=== PATIENT | female | born 1945 | race Caucasian/White ===

== ENCOUNTER 2021-01-10 00:29 | Emergency (ER) | payer OTHER, SELFPAY ==
[2021-01-10 00:30] VITALS: BP 184/126; PULSE 93; RESP 20; TEMP 35.9; O2SAT 96; BMI 34.1
--- NOTE | 2021-01-10 01:09 | EKG12_ITS ---
Test Reason : ABD PAIN Blood Pressure : / mmHG Vent. Rate : 086 BPM Atrial Rate : 086 BPM P-R Int : 138 ms QRS Dur : 086 ms QT Int : 374 ms P-R-T Axes : 065 043 117 degrees QTc Int : 447 ms Normal sinus rhythm with sinus arrhythmia Possible Left atrial enlargement Poor R- wave progression Nonspecfic T-wave abnormality Abnormal ECG Confirmed by CATHERINE VARELA, TREVOR ([id number]), magazine editor TJ THORNTON ([id number]) on 01/13/2021 1:16:35 PM Referred By: DURGA Confirmed By:TREVOR ALEXANDER MD
--- NOTE | 2021-01-10 01:09 | CT_ITS ---
STUDY: CTA OF THE ABDOMEN REASON FOR EXAM: Female, 76 years old. abd pain, HTN -- CTA abd and pelvis please RADIATION DOSAGE (If Supplied By Facility): CTDIvol = ( 32.68 ) mGy, DLP = ( 1275.97 ) mGycm TECHNIQUE: Axial CT angiography multi-detector data acquisition was obtained from the to the following intravenous administration of IV 100mL Isovue-370. Axial images and MIP images were reconstructed from the axial data set. Post-processing of the angiographic images was performed, with multiplanar reformation and 3D reconstruction. Individualized dose optimization techniques were used for this CT. TECHNICAL QUALITY: Good COMPARISON: None. Descriptors of Narrowing: None (0%) Mild (< 50%) Moderate (50-70%) Severe (70-90%) Subtotal/Total Occlusion (90-100%) Non-Evaluable (technically non-diagnostic FINDINGS: Abdominal aorta: Mild atherosclerotic disease of aorta with tortuosity. No stenosis or aneurysm. Celiac and superior mesenteric arteries: Atherosclerotic disease involving the origin of the celiac artery with moderate to severe narrowing. No narrowing involving the superior mesenteric artery. Inferior mesenteric artery: No demonstrated narrowing. Right renal artery(arteries): Likely high-grade stenosis near the ostium Left renal artery(arteries): Atherosclerotic disease with no narrowing. Right common iliac artery: Atherosclerotic disease, no narrowing. Right external iliac artery: Atherosclerotic disease, no narrowing. Right internal iliac artery: Atherosclerotic disease, no narrowing. Left common iliac artery: Atherosclerotic disease, no narrowing. Left external iliac artery: Atherosclerotic disease, no narrowing. Left internal iliac artery: Atherosclerotic disease, no narrowing. Right common femoral artery: Atherosclerotic disease, no narrowing. Left common femoral artery: Atherosclerotic disease, no narrowing. CT of the abdomen and pelvis: Mild posterior dependent atelectasis, remainder of the lung bases are clear. Cardiomegaly. Distention of the gallbladder with the thickening of the wall and surrounding inflammation raising the concern for acute cholecystitis. There is evidence of pneumobilia. There is an elongated fluid collection in the right upper quadrant presumed to represent distended gallbladder measuring 7.4 cm. There is thickening of the wall with air in the lumen and upper aspect of the wall. If this represents gallbladder, this represents acute cholecystitis, possible emphysematous. However, on axial image 100, series 2 with there is communication between this structure and gastroduodenal region and therefore differential diagnosis includes a large diverticulum with inflammatory process. Normal spleen. Normal pancreas. Normal bilateral adrenal glands. Right mid lower renal pole cyst measuring 3.6 x 3.2 cm. Right lower renal pole indeterminant heterogeneous structure with high density measuring 1.2 cm, cannot exclude small renal mass. Otherwise normal right kidney. Normal left kidney. The stomach is distended. Described above, cannot exclude a large diverticulum at the gastroduodenal region. Distention of the small bowel loops up to a maximum diameter of 3.7 cm concerning for small bowel obstruction. Zone of transition is indeterminate and likely within the mid distal jejunum. Normal colon. There is non-visualization of the appendix. There is diffuse atherosclerotic calcification of the abdominal aorta, without a demonstrated aneurysm. Normal inferior vena cava. Normal retroperitoneum. Normal urinary bladder. There is atrophy of the uterus. There is large anterior pannus with anterior abdominal wall diastases. There are diffuse degenerative changes of the visualized lumbar spine. IMPRESSION: Acute cholecystitis versus large gastroduodenal diverticulum with inflammatory changes. Correlation with history of prior cholecystectomy. Air in the fluid collection in the right upper quadrant, cannot exclude is emphysematous cholecystitis. Small bowel obstruction with zone of transition in the mid to distal jejunum. Right lower renal pole heterogeneous density measuring 1.2 cm, cannot exclude a small renal mass. Follow-up with ultrasound in nonacute setting recommended. CT/CT ANGIO ABD&PEL W/O&W/DYE IMPRESSION: Normal abdominal aorta and bilateral lower extremity run-off without a hemodynamically significant stenosis. Electronically Signed: Cecile Fatima MD at 3:11 EDT , Service support ,
[2021-01-10] MEDS: Ondansetron 4 MG/2 ML Vial IV (01:23)
[2021-01-10] MEDS: fentaNYL 100 MCG/2 ML Ampul 25 MCG IV ×2 (01:24→02:49)
[2021-01-10 01:25] LABS: Absolute Lymphocyte Count 1.09 X10^3/uL (0.83-4.51); Absolute Neutrophil Count 9.7 X10^3/uL (2.0-7.7); Basophil# 0.03 X10^3/uL; Basophil% 0.3 % (0-1); Eosinophil# 0.02 X10^3/uL; Eosinophils% 0.2 % (0-5); Hematocrit 47.9 % (37-47); Lymphocyte # 1.09 X10^3/ul (0.83-4.51); Lymphocyte % 9.4 % (19-41); Mean Corp Hgb Conc 31.3 g/dL (32-36); Mean Corpuscular Hgb 26.1 pg (27.0-32.0); Mean Corpuscular Volume 83.3 fL (81-99); Mean Platelet Vol. 10.3 fl (6.2-12.0); Monocyte% 6.9 % (0-10); NRBC Flagged by Analyzer 0 % (0-5); Neutrophil # 9.65 X10^3/uL (2.7-7.7); Neutrophil % 82.9 % (47-70); Platelet Count 251 K/mm3 (150-450); RBC Distribution Width CV 14.8 % (11.6-14.6); RBC Distribution Width SD 44.9 fl (35.1-43.9); Red Blood Count 5.75 M/mm3 (4.2-5.4); White Blood Count 11.6 K/mm3 (4.4-11.0)
[2021-01-10 01:40] VITALS: BP 181/97; PULSE 82; RESP 20; O2SAT 92
[2021-01-10 01:58] LABS: AST(SGOT) 30 U/L (15-37); Alanine Aminotransfer ALT/SGPT 21 U/L (13-56); Albumin, Serum 3.6 g/dL (3.2-5.0); Alkaline Phosphatase 98 U/L (45-117); Anion Gap 7 (5-15); BUN 24 mg/dL (7-18); BUN/Creat Ratio 19.4 RATIO (10-20); Bilirubin, Direct 0.21 mg/dL (0.00-0.30); Calcium,Total 9.1 mg/dL (8.5-10.1); Chloride 99 mmol/L (98-107); Creatinine, Serum 1.24 mg/dL (0.55-1.02); EST Glomerular Filtration Rate 45 mL/min (>60); Est Glom Filt Rate - Afr Amer 54 mL/min (>60); Estimated Creatinine Clearance 37.26 ml/min; Globulin 4.2 g/dL (2.2-4.2); Glucose 198 mg/dL (74-106); Lactic Acid 1.4 mmol/L (0.4-1.9); Lipase 133 U/L (73-393); Potassium 4.7 mmol/L (3.5-5.1); Protein, Total 7.8 g/dL (6.4-8.2); Sodium Level 135 mmol/L (136-145)
[2021-01-10 02:28] VITALS: BP 169/84; PULSE 76; RESP 18; TEMP 37.3; O2SAT 94
--- NOTE | 2021-01-10 03:31 | EDS_ITS ---
HPI History of Present Illness Chief Complaint: Abd Pain Informant: patient Onset/Context/Timing Onset: Yesterday Context: Gradual Onset Timing: Waxes and wanes Current Severity: Moderate Maximum Severity: Severe Narrative Narrative: Patient presents with a 1 day history of abdominal pain. She describes it as a spasm sensation. She has had nausea and vomiting. She does report that she had a bowel movement and denies having diarrhea. She did not check for a fever but did not feel warm. Only prior abdominal surgeries are C- sections. Past medical history significant for hypertension, no longer taking medication. She also has a history of prior [place] in 2017 with 2 cardiac stents. She believes she was diagnosed with CHF. [facility] Medical History CHF (congestive heart failure) Coronary artery disease Hypertension Myocardial infarction Home Medications aspirin [Baby Aspirin] 81 mg PO DAILY 01/10/21 [History Last Taken Unknown] clopidogrel [Plavix] 75 mg PO DAILY 01/10/21 [History Last Taken Unknown] furosemide [Lasix] 40 mg PO DAILY 01/10/21 [History Last Taken Unknown] Allergy/AdvReac Type Severity Reaction Status Date / Time No Known Allergies Allergy Verified 01/10/21 00:35 Surgical History History of Social History Smoking Status: Never smoker ROS ROS ED Constitutional Constitutional ED: Denies chills or fever(s) Eyes Eyes: Denies change in vision ENT ENT ED: Denies sore throat Cardiovascular Cardiovascular: Denies chest pain Respiratory/Chest Respiratory/Chest: Denies cough or dyspnea Gastrointestinal Gastrointestinal: Reports abdominal pain, nausea and vomiting; Denies diarrhea Genitourinary Genitourinary ED: Denies dysuria Musculoskeletal Musculoskeletal: Reports back pain Integumentary Denies rash Neurologic Neurologic: Denies headache(s) or weakness Psychiatric Psychiatric: Denies anxiety or depression Endocrine Endocrinology: Denies polydipsia or polyuria Allergic/Immunologic Allergic/Immunologic ED: Denies urticaria EXAM Physical Exam Const Vital Signs: 01/10/21 00:30 01/10/21 01:40 01/10/21 02:28 Temperature 96.6 F L 99.1 F Temperature Source Temporal Oral Pulse Rate 93 82 76 Respiratory Rate 20 H 20 H 18 Blood Pressure 184/126 H 181/97 H 169/84 H Blood Pressure Mean 145 125 112 Pulse Ox 96 92 94 Oxygen Delivery Method Room Air Room Air Room Air 01/10/21 03:42 Temperature 98.8 F Temperature Source Oral Pulse Rate 79 Respiratory Rate 17 Blood Pressure 183/93 H Blood Pressure Mean 123 Pulse Ox 95 Oxygen Delivery Method Room Air Positive well nourished and well developed General Appearance ED: well developed HEENT Reports normocephalic and head/scalp atraumatic Eyes PERRL and EOMs intact bilaterally Neck supple Chest Wall inspection of chest normal and palpation of chest normal Resp normal respiratory effort and clear to auscultation bilaterally Cardio regular rate and regular rhythm GI Auscultation: hypoactive bowel sounds Palpation: soft and tender other (Mild diffuse tenderness to palpation.); N egative for guarding or rebound tenderness present Extremity normal to inspection Neuro oriented x3 and no sensory deficits noted Sensorium / Orientation: alert Motor Exam: strength 5/5 throughout Psych mental status grossly normal Skin no rashes or lesions noted MDM MDM MDM Narrative Medical decision making narrative: Patient was given fentanyl and Zofran for pain and nausea. Lab work was obtained. CTA of the abdomen and pelvis was obtained secondary to her degree of hypertension and complaints of back and abdominal pain. Lab Data Attestation: I reviewed the patient's lab results. Labs: Laboratory Results - last 24 hr 01/10/21 01/10/21 01/10/21 01:18 01:18 01:18 WBC 11.6 H RBC 5.75 H Hgb 15.0 Hct 47.9 H MCV 83.3 MCH 26.1 L MCHC 31.3 L RDW Std Deviation 44.9 H RDW Coeff of Beena 14.8 H Plt Count 251 MPV 10.3 Immature Gran % (Auto) 0.300 Neut % (Auto) 82.9 H Lymph % (Auto) 9.4 L [place] % (Auto) 6.9 Eos % (Auto) 0.2 Baso % (Auto) 0.3 Absolute Neuts (auto) 9.7 H Absolute Lymphs (auto) 1.09 Nucleated RBC % 0 Sodium 135 L Potassium 4.7 Chloride 99 Carbon Dioxide 29.0 Anion Gap 7 BUN 24 H Creatinine 1.24 H Estim Creat Clear Calc 37.26 Est GFR (MDRD) Af Amer 54 L Est GFR (MDRD) Non-Af 45 L BUN/Creatinine Ratio 19.4 Glucose 198 H Lactic Acid 1.4 Calcium 9.1 Total Bilirubin 0.80 Direct Bilirubin 0.21 AST 30 ALT 21 Alkaline Phosphatase 98 Total Protein 7.8 Albumin 3.6 Globulin 4.2 Lipase 133 Radiography Diagnostic Testing: Radiology Impression Abdomen/Pelvis CTA 01/10/21 01:09 IMPRESSION: Normal abdominal aorta and bilateral lower extremity run-off without a hemodynamically significant stenosis. Electronically Signed: Cecile Fatima MD at 3:11 EDT , Service support , EKG Initial EKG: Attestation: I personally reviewed and interpreted this EKG as follows: Interpretation: Sinus Rhythm (Sinus 86 with sinus arrhythmia. No acute ST change.) Treatment and Re-Evaluation Comments:: Evaluation patient resting much more comfortably. She will be given a dose of Zosyn. I spoke with Dr. Garcia, on-call for surgery. She feels that if there is any chance of this being a gastroduodenal diverticulum she cannot handle that surgery here at this facility and she will require transfer to a tertiary center. We spoke with [facility] who states they were not able to accept this transfer at this time. Calls are made to [facility] for transfer. Discharge Plan Triage Chief Complaint: Abd Pain ED Provider: Taniya Toro Dx/Rx/DC Orders Clinical Impression: Cholecystitis, Small bowel obstruction Prescriptions: No Action furosemide [Lasix] 40 mg Tablet 40 mg PO DAILY RF: 0 clopidogrel [Plavix] 75 mg Tablet 75 mg PO DAILY RF: 0 aspirin [Baby Aspirin] 81 mg Tablet,Chewable 81 mg PO DAILY RF: 0 Primary Care Provider: Thomas Pastor Referrals: Thomas Pastor DO [Primary Care Provider] - Disposition Disposition: Acute Care Hospital Discharge Location: [facility] Discharge Date/Time: 01/10/21 05:10
[2021-01-10 03:42] VITALS: BP 183/93; PULSE 79; RESP 17; TEMP 37.1; O2SAT 95
[2021-01-10 04:27] VITALS: BP 179/83; PULSE 76; RESP 18; O2SAT 97
[2021-01-10] MEDS: fentaNYL 100 MCG/2 ML Ampul 50 MCG IV (04:38)
--- NOTE | 2021-01-10 04:40 | ED.RN ---
attempted to [facility] rn to rn report. no answer
--- NOTE | 2021-01-10 04:50 | ED.RN ---
attempted to call rn to rn report to [facility], no answer.
--- NOTE | 2021-01-10 04:54 | ED.RN ---
attempted to call rn to rn report to [facility]. answer with failure to transfer. no report given
--- NOTE | 2021-01-10 04:56 | ED.RN ---
attempted to call rn to rn report to [facility]. put on hold, failure to transfer. no report given.
== END 2021-01-10 05:10 | disposition short-term general hospital (02) ==
PROVIDERS: Emergency Provider Emergency Medicine; PCP Family Medicine
DX: K81.9 Cholecystitis, unspecified (principal); K56.609 Unspecified intestinal obstruction, unspecified as to partial versus complete obstruction; I25.10 Atherosclerotic heart disease of native coronary artery without angina pectoris; I11.0 Hypertensive heart disease with heart failure; I50.9 Heart failure, unspecified; I25.2 Old myocardial infarction; Z79.82 Long term (current) use of aspirin; Z95.5 Presence of coronary angioplasty implant and graft; Z79.899 Other long term (current) drug therapy
CPT/HCPCS: 74174; 80048; 80076; 83605; 83690; 85025; 93005; 96365; 96375; 96376; 99285; J7040; Q9967; A4216; J2405

== ENCOUNTER 2022-07-05 22:30 | Observation (INO) | payer OTHER, SELFPAY ==
[2022-07-05 22:31] VITALS: BP 184/98; PULSE 74; RESP 18; TEMP 36.5; O2SAT 96; BMI 29.1
--- NOTE | 2022-07-05 22:44 | CT_ITS ---
INDICATION: dizzy, HTN EXAMINATION: CT BRAIN - CT Head or Brain W/O Contrast Injection TECHNIQUE: Multiple axial images were obtained of the head without intravenous contrast. A radiation dose optimization technique was used for this scan. IV Contrast dosage and agent: None. COMPARISON: None FINDINGS: BRAIN PARENCHYMA: No intra- or extra-axial hemorrhage. White matter hypoattenuation extending from the atrium of right lateral ventricle to the parietal salazar-white matter junction without definite involvement of the cortex. There is associated effacement of the right occipital horn. No intracranial mass or mass effect. Posterior fossa structures are unremarkable. CSF SPACES: Appropriate for age. No hydrocephalus. Basal cisterns are patent. CALVARIUM, SKULL BASE, PARANASAL SINUSES AND MASTOID AIR CELLS: Clear. No discrete lytic or blastic abnormalities. ORBITS: Both globes, extraocular muscles, optic nerves and retrobulbar fat appear unremarkable. CT/Brain/Head without Contrast IMPRESSION: Right parietal white matter hypoattenuation without definite involvement of the cortex, and with effacement of the right occipital horn is suspicious for an underlying malignant mass causing cytotoxic edema. Correlate with brain MRI. Electronically Signed: Terrell Meclroy MD at 23:45 EST ,
--- NOTE | 2022-07-05 22:47 | EX.ED.DYSGE1 ---
HPI History of Present Illness Chief Complaint: Hypertension Detail of Chief Complaint: Dizzy, hypertension, chest pressure Informant: patient Narrative Narrative: Patient is a poor historian. She states she was not feeling well tonight and had some dizziness. She checked her blood sugar and it was reportedly over 200 systolic. She has a history of hypertension but is no longer on antihypertensives. She believes her normal blood pressure is around 150 systolic. She took a dose of an old blood pressure medication tonight but does not remember what it was. She believes it started with a P and ended with LOL. I do not see any previously prescribed beta-blockers for her on review of her outside prescriptions. Patient states that her dizziness is improved at this time. She does admit to having intermittent chest pressure. She did have some chest pressure today but states it was worse yesterday. She states the chest pressure does seem to come on with exertion. She denies headache. [facility] Medical History CHF (congestive heart failure) Coronary artery disease Essential hypertension Myocardial infarction Home Medications aspirin 81 mg chewable tablet 81 mg PO DAILY 01/10/21 [History Last Taken Unknown] clopidogrel 75 mg tablet (Plavix) 75 mg PO DAILY 01/10/21 [History Last Taken Unknown] furosemide 40 mg tablet (Lasix) 40 mg PO DAILY 01/10/21 [History Last Taken Unknown] Allergy/AdvReac Type Severity Reaction Status Date / Time No Known Allergies Allergy Verified 07/05/22 22:43 Surgical History History of Social History Smoking Status: Never smoker ROS ROS ED Constitutional Constitutional ED: Denies chills or fever(s) Eyes Eyes: Denies change in vision or discharge from eye(s) ENT ENT ED: Denies discharge from eye(s), rhinorrhea or sore throat Cardiovascular Cardiovascular: Reports chest pain; Denies palpitations Respiratory/Chest Respiratory/Chest: Denies cough or dyspnea Gastrointestinal Gastrointestinal: Denies abdominal pain, nausea or vomiting Genitourinary Genitourinary ED: Denies dysuria Musculoskeletal Musculoskeletal: Denies back pain or extremity pain Integumentary Denies Abrasions or rash Neurologic Neurologic: Reports other Details: Dizziness ; Denies headache(s) or weakness Psychiatric Psychiatric: Denies anxiety or depression Allergic/Immunologic Allergic/Immunologic ED: Denies lip swelling or urticaria EXAM Physical Exam Const Vital Signs: 07/05/22 22:31 07/05/22 23:08 07/05/22 23:08 Temperature 97.7 F L Temperature Source Temporal Pulse Rate 74 66 Respiratory Rate 18 20 H Respiratory Effort Respiratory Pattern Blood Pressure 184/98 H 181/86 H Blood Pressure Mean 126 117 Pulse Ox 96 96 96 Oxygen Delivery Method Room Air Room Air Room Air 07/05/22 23:30 Temperature Temperature Source Pulse Rate Respiratory Rate Respiratory Effort Normal Non-Labored Short of Breath Respiratory Pattern Normal Blood Pressure Blood Pressure Mean Pulse Ox Oxygen Delivery Method Positive well nourished and well developed General Appearance ED: well developed HEENT Reports normocephalic and head/scalp atraumatic Eyes PERRL and EOMs intact bilaterally Neck supple Chest Wall inspection of chest normal and palpation of chest normal Resp normal respiratory effort and clear to auscultation bilaterally Cardio regular rate and regular rhythm GI normal to inspection, nondistended, normoactive bowel sounds Palpation: soft Extremity normal to inspection Neuro oriented x3 and no sensory deficits noted Sensorium / Orientation: alert Motor Exam: strength 5/5 throughout Psych mental status grossly normal Skin no rashes or lesions noted MDM MDM MDM Narrative Medical decision making narrative: Patient is placed on compliance coordinator. EKG, chest x-ray, lab work obtained. CT head obtained given her dizziness and hypertension. Lab Data Attestation: I reviewed the patient's lab results. Labs: Laboratory Results - last 24 hr 07/05/22 07/05/22 23:00 23:00 WBC 7.8 RBC 5.81 H Hgb 15.9 H Hct 50.4 H MCV 86.7 MCH 27.4 MCHC 31.5 L RDW Std Deviation 46.0 H RDW Coeff of Beena 14.5 Plt Count 217 MPV 10.8 Immature Gran % (Auto) 0.300 Neut % (Auto) 66.1 Lymph % (Auto) 22.7 [place] % (Auto) 9.3 Eos % (Auto) 1.2 Baso % (Auto) 0.4 Absolute Neuts (auto) 5.2 Absolute Lymphs (auto) 1.76 Nucleated RBC % 0 Sodium 140 Potassium 4.0 Chloride 106 Carbon Dioxide 29.0 Anion Gap 5 BUN 23 H Creatinine 1.38 H Estim Creat Clear Calc 38.09 Est GFR (MDRD) Af Amer 48 L Est GFR (MDRD) Non-Af 40 L BUN/Creatinine Ratio 16.7 Glucose 132 H Calcium 9.2 Troponin I High Sens 31 Radiography Chest X-Ray - ED: 1 View, Read by ED Physician, Chronic Changes and No Infiltrates Diagnostic Testing: Clinical Impression(s) from Imaging Studies Brain CT 07/05/22 22:44 IMPRESSION: Right parietal white matter hypoattenuation without definite involvement of the cortex, and with effacement of the right occipital horn is suspicious for an underlying malignant mass causing cytotoxic edema. Correlate with brain MRI. Electronically Signed: Terrell Mcelroy MD at 23:45 EST , Chest X-Ray 07/05/22 23:20 IMPRESSION: Emphysema and probable CHF. Electronically Signed: Terrell Mcelroy MD at 23:47 EST , EKG Initial EKG: Attestation: I personally reviewed and interpreted this EKG as follows: Interpretation: Sinus Rhythm (Sinus at 71 with no acute ischemia. Artifact noted in the lateral precordial leads.) Treatment and Re-Evaluation Narrative: EKG per my interpretation reveals no acute ischemia. Chest x-ray per my interpretation reveals chronic changes with no focal infiltrate. Radiology interpretation is reviewed. CBC reveals normal white count. Hemoglobin is slightly concentrated at 15.9. Chemistry studies reveal a BUN of 23 and a creatinine of 1.38. Her troponin is normal at 31. CT scan of the head reveals right parietal white matter hypoattenuation. This is suspicious for an underlying malignant mass causing cytotoxic edema. MRI is recommended. Test results are discussed with patient and family at bedside. I recommended observation for cycling of cardiac enzymes as well as MRI of her brain to further delineate the abnormality noted on CT. After discussion with family she has agreed to stay for some further testing. Blood pressure at this time is 166/83. She has not been given any further medication here for blood pressure control. I will speak with the hospitalist. Discharge Plan Triage Chief Complaint: Hypertension ED Provider: Taniya Toro Dx/Rx/DC Orders Clinical Impression: Hypertension, Chest pain, Brain mass Prescriptions: No Action furosemide [Lasix] 40 mg Tablet 40 mg PO DAILY clopidogrel [Plavix] 75 mg Tablet 75 mg PO DAILY aspirin [Baby Aspirin] 81 mg Tablet,Chewable 81 mg PO DAILY Primary Care Provider: Thomas Pastor Referrals: Thomas Pastor DO [Primary Care Provider] - Disposition Disposition: Acute Care Hospital [facility]
[2022-07-05 23:08] VITALS: BP 181/86; PULSE 66; RESP 20; O2SAT 96
[2022-07-05 23:12] LABS: Absolute Lymphocyte Count 1.76 X10^3/uL (0.83-4.51); Absolute Neutrophil Count 5.2 X10^3/uL (2.0-7.7); Basophil# 0.03 X10^3/uL; Basophil% 0.4 % (0-1); Eosinophil# 0.09 X10^3/uL; Eosinophils% 1.2 % (0-5); Hematocrit 50.4 % (37-47); Hemoglobin 15.9 g/dL (12.0-15.0); Lymphocyte # 1.76 X10^3/ul (0.83-4.51); Lymphocyte % 22.7 % (19-41); Mean Corp Hgb Conc 31.5 g/dL (32-36); Mean Corpuscular Hgb 27.4 pg (27.0-32.0); Mean Corpuscular Volume 86.7 fL (81-99); Mean Platelet Vol. 10.8 fl (6.2-12.0); Monocyte# 0.72 X10^3/uL; Monocyte% 9.3 % (0-10); NRBC Flagged by Analyzer 0 % (0-5); Neutrophil # 5.15 X10^3/uL (2.7-7.7); Neutrophil % 66.1 % (47-70); Platelet Count 217 K/mm3 (150-450); RBC Distribution Width CV 14.5 % (11.6-14.6); Red Blood Count 5.81 M/mm3 (4.2-5.4); White Blood Count 7.8 K/mm3 (4.4-11.0)
--- NOTE | 2022-07-05 23:20 | RAD_ITS ---
INDICATION: Not feeling well, hypertension, history of CHF EXAMINATION/TECHNIQUE: X-RAY - XR Chest 1 View COMPARISON: None. FINDINGS: LINES/DEVICES: None. LUNGS: Hyperinflated with scarring of both lung bases. No consolidation, edema or effusion. No pneumothorax. MEDIASTINUM AND CARDIOVASCULAR STRUCTURES: Mildly enlarged heart. Central airways and mediastinal contour are unremarkable. RAD/Chest 1 View (Portable) IMPRESSION: Emphysema and probable CHF. Electronically Signed: Terrell Mcelroy MD at 23:47 EST ,
[2022-07-05 23:30] LABS: Anion Gap 5 (5-15); BUN 23 mg/dL (7-18); BUN/Creat Ratio 16.7 RATIO (10-20); Calcium,Total 9.2 mg/dL (8.5-10.1); Chloride 106 mmol/L (98-107); Creatinine, Serum 1.38 mg/dL (0.55-1.02); EST Glomerular Filtration Rate 40 mL/min (>60); Est Glom Filt Rate - Afr Amer 48 mL/min (>60); Estimated Creatinine Clearance 38.09 ml/min; Glucose 132 mg/dL (74-106); Sodium Level 140 mmol/L (136-145); Troponin-I HS (w/2H Reflex) 31 pg/mL (3.0-54.0)
[2022-07-06] VITALS (12 sets, daily range): BP systolic 116–166; BP diastolic 48–76; PULSE 46–68; RESP 14–18; TEMP 36.6–37.2; O2SAT 96–97; BMI 29.1
--- NOTE | 2022-07-06 00:44 | HP.PCM.HOS_ITS ---
HPI - General General Date of Admission: 07/06/22 Date of Service: 07/06/22 Chief Complaint: Dizziness, hypertensive. HPI Narrative The patient is a 77 y/o F w/ PMHx: Chronic CHF Unclear type, HTN, HLD, CAD who presents to the [facility] ED on 07/06/22 with history of onset of dizziness and general malaise on evening of day prior to presentation with blood pressure assessment at home and reportedly over 200 systolic not currently taking any of her antihypertensive regimen for unclear reasons prompting her to take an old blood pressure medication of unclear type with some improvement of her dizziness following however she began to have intermittent chest pressure in the midsternal region described as a tightness specifically, rated 2-3 out of 10 in severity which she notes is worse with exertion without any radiation and reports she did have some also the day prior to this as well prompting ED evaluation. In the ED upon evaluation patient is chest discomfort free. She denies any current dizziness. She denies any recent fever, chills, nausea, emesis, extremity weakness or paresthesias. Work-up in the ED included T97.7, heart rate 74, BP 184/98, respiratory rate 18, 96% on room air, CBC with WC 7.8, hemoglobin 15.9, platelet 217 without marked shift, BMP with BUN/creat 23/1.38, glucose 132, troponin 31, chest x-ray with hyperinflation with scarring in both lungs with no consolidation, edema or effusion with mildly enlarged heart with central airways and mediastinal contour are unremarkable, CT of the brain with a right parietal white matter hypoattenuation without definitive involvement of the cortex and with effacement the right occipital horn suspicious for underlying malignant mass causing cytotoxic edema with recommended correlation MRI, EKG was sinus rhythm with no acute evidence of ischemia. [facility] Medical History (Updated 07/06/22 @ 01:[address] Dinora Centeno MD) CAD (coronary artery disease) CHF (congestive heart failure) Coronary artery disease Essential hypertension HLD (hyperlipidemia) Myocardial infarction Home Medications aspirin 81 mg chewable tablet 81 mg PO DAILY 01/10/21 [History Last Taken Unknown] clopidogrel 75 mg tablet (Plavix) 75 mg PO DAILY 01/10/21 [History Last Taken Unknown] furosemide 40 mg tablet (Lasix) 40 mg PO DAILY 01/10/21 [History Last Taken Unknown] clonazepam 0.5 mg tablet 0.5 mg PO DAILY 07/06/22 [History Last Taken Unknown] spironolactone 25 mg tablet 25 mg PO DAILY 07/06/22 [History Last Taken Unknown] ursodiol 300 mg capsule 300 mg PO DAILY 07/06/22 [History Last Taken Unknown] zolpidem 10 mg tablet 10 mg PO DAILY 07/06/22 [History Last Taken Unknown] Allergy/AdvReac Type Severity Reaction Status Date / Time No Known Allergies Allergy Verified 07/05/22 22:43 Family History (Updated 07/06/22 @ 01:[address] Dinora Centeno MD) Mother CVA (cerebral vascular accident) Heart disease Myocardial infarction Father CVA (cerebral vascular accident) Heart disease Myocardial infarction Surgical History (Updated 07/06/22 @ 01:[address] Dinora Centeno MD) History of Hx of coronary angioplasty Social History (Updated 07/06/22 @ 01:[address] Dinora Centeno MD) household members: family Smoking Status: Never smoker alcohol intake: never substance use type: does not use ROS ROS Narrative Admission Review of Systems: CONSTITUTIONAL: No weight loss, fever, chills, + weakness or fatigue. HEENT: Eyes: No visual loss, blurred vision, double vision or yellow sclerae. Ears, Nose, Throat: No hearing loss, sneezing, congestion, runny nose or sore throat. SKIN: No rash or itching, lesions, wounds. CARDIOVASCULAR: + Chest pain, dizziness, No palpitations, edema, orthopnea, syncopal events. RESPIRATORY: No shortness of breath, cough or sputum, wheezing, hemoptysis. GASTROINTESTINAL: No anorexia, nausea, vomiting or diarrhea, abdominal pain, melena, BRBPR. GENITOURINARY: No dysuria, frequency, urgency or retention. NEUROLOGICAL: + Dizziness, No headache, syncope, paralysis, ataxia, numbness or tingling in the extremities, focal weakness, change in bowel or bladder control, seizure. MUSCULOSKELETAL:+ muscle, back pain, joint pain or stiffness. HEMATOLOGIC: No anemia, bleeding or bruising. LYMPHATICS: No enlarged nodes. No history of splenectomy. PSYCHIATRIC: No history of depression or anxiety. ENDOCRINOLOGIC: No reports of sweating, cold or heat intolerance. No polyuria or polydipsia. ALLERGIES: No history of asthma, hives, eczema or rhinitis. Vital Signs Vital Signs Vital Signs: 07/05/22 22:31 07/05/22 23:08 07/05/22 23:08 Temperature 97.7 F L Temperature Source Temporal Pulse Rate 74 66 Respiratory Rate 18 20 H Respiratory Effort Respiratory Pattern Blood Pressure 184/98 H 181/86 H Blood Pressure Mean 126 117 Pulse Ox 96 96 96 Oxygen Delivery Method Room Air Room Air Room Air 07/05/22 23:30 Temperature Temperature Source Pulse Rate Respiratory Rate Respiratory Effort Normal Non-Labored Short of Breath Respiratory Pattern Normal Blood Pressure Blood Pressure Mean Pulse Ox Oxygen Delivery Method Weight Weight: 203 lb 0.732 oz Body Mass Index (BMI) 29.1 Physical Exam Narrative Physical Examination: General: Awake, alert, oriented x 3 and cooperative, seated upright in the ED bed, fatigued appearing, denies any current chest discomfort or dizziness. Skin: Normal color, normal turgor, no icterus, no cyanosis except mild venous stasis skin changes to bilateral lower extremities HEENT: AT/NC, EOMI, PERRLA, MMM, no carotid bruits or JVD noted. Lungs: Mild diminished, greater bases, appropriate effort, no rales, ronchi or wheezing. Heart: Currently regular rate and rhythm; no gallop, rub audible. Abdomen: Soft, NTTP, mildly distended abdomen but patient reports this is baseline, distant mildly hyperactive BS, difficulty assessing HSM given abdominal girth. Extremities: No cyanosis, clubbing, or edema. Neurological: Patient awake, alert, oriented as noted, cognitive function intact; pupils equally reactive to light and accommodation, cranial nerves II- XII grossly normal, moving all 4 extremities, no focal deficits, strength moder ately global decrease secondary to acute presentation complaints Psychiatric: Affect appears fatigued, no acute evidence of depressive or anxiety feelings. Results Lab / Micro Data Result Diagrams: 07/05/22 23:00 07/05/22 23:00 Labs: Laboratory Results - last 24 hr 07/05/22 23:00: WBC 7.8, RBC 5.81 H, Hgb 15.9 H, Hct 50.4 H, MCV 86.7, MCH 27.4, MCHC 31.5 L, RDW Std Deviation 46.0 H, RDW Coeff of Beena 14.5, Plt Count 217, MPV 10.8, Immature Gran % (Auto) 0.300, Neut % (Auto) 66.1, Lymph % (Auto) 22.7, [place] % (Auto) 9.3, Eos % (Auto) 1.2, Baso % (Auto) 0.4, Absolute Neuts (auto) 5.2, Absolute Lymphs (auto) 1.76, Nucleated RBC % 0 07/05/22 23:00: Sodium 140, Potassium 4.0, Chloride 106, Carbon Dioxide 29.0, Anion Gap 5, BUN 23 H, Creatinine 1.38 H, Estim Creat Clear Calc 38.09, Est GFR (MDRD) Af Amer 48 L, Est GFR (MDRD) Non-Af 40 L, BUN/Creatinine Ratio 16.7, Glucose 132 H, Calcium 9.2, Troponin I High Sens [address] 07/05/22 22:44 IMPRESSION: Right parietal white matter hypoattenuation without definite involvement of the cortex, and with effacement of the right occipital horn is suspicious for an underlying malignant mass causing cytotoxic edema. Correlate with brain MRI. Electronically Signed: Terrell Mcelroy MD at 23:45 EST , Chest X-Ray 07/05/22 23:20 IMPRESSION: Emphysema and probable CHF. Electronically Signed: Terrell Mcelroy MD at 23:47 EST , Assessment & Plan Assessment/Plan (1) Chest pain: PLAN: Plan The patient is a 77 y/o F w/ PMHx: Chronic CHF Unclear type, HTN, HLD, CAD who presents to the [facility] ED on 07/06/22 with history of onset of dizziness and general malaise on evening of day prior to presentation with blood pressure assessment at home and reportedly over 200 systolic not currently taking any of her antihypertensive regimen for unclear reasons prompting her to take an old blood pressure medication of unclear type with some improvement of her dizziness following however she began to have intermittent chest pressure in the midsternal region described as a tightness specifically, rated 2-3 out of 10 in severity which she notes is worse with exertion without any radiation. #1. Chest Pain, hypertensive urgency: EKG in ED sinus rhythm with no acute evidence of ischemic, CXR w/ no acute cardiopulmonary findings, initial trop 31. Will admit to PCU, place on a monitored bed to assure no acute myocardial infarction with serial cardiac enzymes and EKGs. If repeat serial cardiac enzymes and EKGs remain unremarkable will perform cardiac stress testing, will reinitiate medical therapy given underlying history of heart disease with CAD and CHF with continued aspirin, cautiously also Plavix given unclear CT head imaging findings with MRI pending as noted #2, add at least moderate dose statin therapy, add moderate dose Coreg and moderate dose lisinopril with continued cl ose monitoring. Magnesium level requested. FLP in AM. ASA, NG, morphine. #2. Abnormal CT of the head concerning for possible mass: Patient dizziness reportedly improved with blood pressure improvement thus unfortunately CT of the head is possibly incidental, CT of the brain with noted right parietal white matter hypoattenuation with definitive involvement of the cortex with effacement of the right occipital horn suspicious for underlying malignant mass with cytotoxic edema. We will maintain on telemetry monitoring, given uncertainty of etiology to be cautious will administer Decadron load upfront and continue, obtain MRI of the brain with and without IV contrast given concerns for mass, continue neuro assessments. Cautiously continuing patient aspirin and Plavix as noted #1 given underlying coronary disease and acute presentation #1. Once imaging obtained would plan to obtain Neurology consultation for further input. Family notes preference for likely avoidance of any aggressive evaluations or interventions if in fact malignancy but want initial assessment. #3. Chronic CHF, unclear type: Patient with reported CHF history, unclear if preserved or reduced EF, will very judiciously hydrate if necessary, will cautiously for now continue aspirin and Plavix as noted, adding moderate dose statin, continue lasix, spironolactone, adding moderate dose Coreg and lisinopril regimen given uncontrolled hypertension and underlying history. Echocardiogram requested. #4. CAD: Status post PCI x2, we will cautiously as noted continue aspirin and Plavix, adding at least moderate dose Coreg and lisinopril given underlying history and uncontrolled blood pressure as noted, continue make adjustments as needed. #5. Hypertension with as noted hypertensive urgency presentation: Patient reportedly stopped taking her blood pressure medications, will reinitiate at least a moderate dose Coreg and lisinopril regimen given underlying history, as needed IV hydralazine also in interim. #6. Hyperlipidemia: We will add at least moderate dose statin therapy, FLP in AM. #7. Chronic Kidney Disease Stage III, unclear subtype: Admission BUN/Cr 23/1.3, baseline renal function 1.24 noted previous, repeat BMP in AM. #8. DVT prophylaxis: SCDs, defer any chemoprophylaxis given dual antiplatelet therapy and pending MRI of the brain with underlying concern for mass. #9. CODE status: Patient SOL is her 2 eldest son and unclear if living will is in place also. Discussed CODE status at length including difference between FULL code, DNR-CCA and DNR-CC status. Following discussions about the differences in these status, requested DNR-CCA, no intubation status. Advanced Care Planning Face to Face Time: 16 minutes. Charges/Coding Visit Charges OBSV E&M: 00026 Initial observation care L3 Procedures Hospitalists Procedures: 32212 Advncd Care Plan 30 Min
--- NOTE | 2022-07-06 00:52 | EKG12_ITS ---
Test Reason : ADM EKG Blood Pressure : / mmHG Vent. Rate : 060 BPM Atrial Rate : 060 BPM P-R Int : 144 ms QRS Dur : 092 ms QT Int : 424 ms P-R-T Axes : 075 -07 106 degrees QTc Int : 424 ms Sinus rhythm with Premature atrial complexes ST & T wave abnormality, consider lateral ischemia Abnormal ECG Confirmed by CATHERINE VARELA, TREVOR ([id number]), editor sound BRADY MAHAN ([id number]) on 07/13/2022 10:06:48 AM Referred By: DORA Confirmed By:TREVOR ALEXANDER MD
[2022-07-06 01:07] LABS: Reflex Troponin-HS? (from REC) Y
[2022-07-06 01:26] LABS: Magnesium 2.4 mg/dL (1.6-2.6)
[2022-07-06 01:36] LABS: Troponin-I HS 41 pg/mL (3.0-54.0)
[2022-07-06] MEDS: Lisinopril 10 MG Tablet PO ×2 (04:48→21:08)
[2022-07-06] MEDS: dexAMETHasone 10 MG/ML Vial 6 MG IV (04:56)
--- NOTE | 2022-07-06 05:55 | ECHOCS_ITS ---
Reason For Study: CHF Procedure This was a 2D Doppler, Color Flow transthoracic echocardiogram. The study was technically difficult. Due to body habitus. Contrast injection was performed. Exam performed portable in ED. Left Ventricle Severely dilated left ventricle. Moderately severe segmental systolic dysfunction (see wall motion). The estimated ejection fraction is 35 %. Stage 1 diastolic dysfunction. Basal inferoseptal: Hypokinetic. Basal anteroseptal: Akinetic. Mid-Anterior : Hypokinetic. Mid-Lateral : Hypokinetic. Mid-Posterior: Hypokinetic. Mid-Inferior: Hypokinetic. Mid-inferoseptal : Hypokinetic. Mid- anteroseptal : Akinetic. Anterior [place] : Hypokinetic. Inferior [place] : Akinetic. Lateral [place] : Hypokinetic. Septal [place] : Akinetic. Right Ventricle Normal RV size. Normal systolic function. Atria The left atrium is moderately enlarged. The right atrium is mildly enlarged. No doppler evidence for ASD. Mitral Valve There is no mitral annular calcification. Normal mitral valve. Mild-Moderate (1-2+) eccentric mitral valve insufficiency. Tricuspid Valve Normal tricuspid valve. Mild tricuspid valve insufficiency. Right ventricular systolic pressure estimated to be 37 mmHg. Aortic Valve Trisinus/trileaflet aortic valve. Mild diffuse aortic valve thickening. Mild (1+) aortic valve insufficiency. Pulmonic Valve The pulmonic valve is not well visualized. Great Vessels Borderline enlarged aortic root. Pericardium/Pleural No pericardial effusion. Medication Diluted definity 2.5ml given slow IV push to enhance endocardial definition. MMode/2D Measurements & Calculations LVIDd: 6.6 cm IVSd: 0.86 cm Ao root diam: 3.9 cm LVIDs: 5.5 cm LVPWd: 0.96 cm RVDd: 2.8 cm FS: 16.3 % LAV(MOD-bp): 118.6 ml LVAd ap4: 39.1 cm2 LVAd ap2: 35.4 cm2 LAV(MOD-bp) Indexed: 56.4 ml/m2 LVLd ap4: 8.6 cm LVLd ap2: 8.5 cm LAV(MOD-sp2): 105.8 ml EDV(MOD-sp4): 147.3 ml EDV(MOD-sp2): 120.9 ml LAV(MOD-sp4): 116.0 ml EDV(sp4-el): 151.2 ml EDV(sp2-el): 124.7 ml LVAs ap4: 29.3 cm2 LVAs ap2: 27.0 cm2 LVLs ap4: 7.6 cm LVLs ap2: 8.2 cm ESV(MOD-sp4): 93.3 ml ESV(MOD-sp2): 76.9 ml ESV(sp4-el): 95.8 ml ESV(sp2-el): 76.0 ml EF(MOD-sp4): 36.7 % EF(MOD-sp2): 36.3 % EF(sp4-el): 36.6 % SV(MOD-sp4): 54.0 ml SV(MOD-sp2): 43.9 ml SV(sp4-el): 55.4 ml LA A4 area: 30.5 cm2 LA dimension(2D): 3.6 cm RA A4 area: 25.3 cm2 Time Measurements MV dec time: 0.24 sec Doppler Measurements & Calculations MV E max malik: 33.6 cm/sec Lat Peak E' Malik: 3.7 cm/sec Med Peak E' Malik: 4.0 cm/sec MV A max malik: 79.3 cm/sec E/E' lat: 9.0 E/E' med: 8.3 MV E/A: 0.42 Ao V2 max: 119.2 cm/sec AI max malik: 448.8 cm/sec LV V1 max: 73.3 cm/sec Ao max P.7 mmHg AI max P.6 mmHg LV V1 max P.2 mmHg Ao V2 mean: 80.8 cm/sec LV V1 mean P.2 mmHg Ao mean P.0 mmHg AI dec slope: 165.5 cm/sec2 LV V1 mean: 51.2 cm/sec Ao V2 VTI: 30.1 cm AI P1/2t: 794.0 msec LV V1 VTI: 18.8 cm AV (velocity ratio): 0.63 PA V2 max: 79.9 cm/sec TR max malik: 267.0 cm/sec TR max P.5 mmHg ECHO/Echo Complete W/ Contrast Interpretation Summary The study was technically difficult. Contrast injection was performed. Severely dilated left ventricle. Moderately severe segmental systolic dysfunction (see wall motion). The estimated ejection fraction is 35 %. The left atrium is moderately enlarged. The right atrium is mildly enlarged. Mild-Moderate (1-2+) eccentric mitral valve insufficiency. Mild tricuspid valve insufficiency. Mild diffuse aortic valve thickening. Mild (1+) aortic valve insufficiency. Borderline enlarged aortic root. Right ventricular systolic pressure estimated to be 37 mmHg. Stage 1 diastolic dysfunction. Ordering Physician: Dinora Centeno Referring Physician: Thomas Pastor Performed By: Alpa Albarran RDCS, RVT
--- NOTE | 2022-07-06 05:55 | MRI_ITS ---
STUDY: MRI BRAIN WITH AND WITHOUT CONTRAST REASON FOR EXAM: Female, 77 years old. Concern brain mass dizzy, HTN, chest discomfort TECHNIQUE: Standardized multiplanar fat and water weighted pulse sequences were obtained. IV clariscan 18ml was administered for the contrast portion of the examination. COMPARISON: Head CT dated July 05, 2022 FINDINGS: No focal brain mass or metastatic lesions are present. There is no demonstrated enhancing mass or abnormal thickening or enhancement of the meninges or dura of the brain. Moderate parenchymal loss with postinfarct gliosis is present in the right parietal lobe corresponding to the area of volume loss and hypoattenuation in the same region on the recent head CT. 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 There is mild cerebral atrophy with widening of the extra-axial spaces and ventricular dilatation. There are a limited number of small white matter hyperintensities, distributed throughout the deep white matter tracts of the cerebral hemispheres, consistent with mild chronic white matter ischemic changes. There is no evidence for recent intracranial ischemia or other cause of cytotoxic edema on diffusion weighted imaging (DWI). Normal bilateral basal ganglia. Normal thalami. There is no extra-axial fluid accumulation. Normal flow voids within the major intracranial circulation suggesting patency by spin echo criteria. Normal venous enhancement. There is no enhancing intra-axial or extra-axial abnormality. There is enlargement of the sella turcica with increased CSF within the sella and flattening of the pituitary gland consistent with an empty sellar syndrome. Normal infundibular stalk, hypothalamus, and optic chiasm. Normal tectal plate and pineal gland. Normal debbie and medulla. Normal cerebellum. Normal basal cisterns. Normal bilateral temporal bones. Normal bilateral internal auditory canals. No demonstrated orbital abnormality, within the constraints of a routine brain study. There is mucoperiosteal inflammatory disease of the paranasal sinuses consistent with mild chronic sinusitis. Normal calvarium and skull base. Normal visualized soft tissue structures. Normal visualized upper cervical spine. MRI/Brain W/WO Contrast IMPRESSION: 1. No focal brain mass or metastatic lesions are present. There is no demonstrated enhancing mass or abnormal thickening or enhancement of the meninges or dura of the brain. 2. Moderate parenchymal loss with postinfarct gliosis is present in the right parietal lobe corresponding to the area of volume loss and hypoattenuation in the same region on the recent head CT. 3. 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 4. Chronic ischemic changes of the white matter. 5. No demonstrated acute infarct or intracranial hemorrhage. Electronically Signed: Nikko Lucas MD at 11:36 EST ,
[2022-07-06 06:37] LABS: Absolute Lymphocyte Count 1.56 X10^3/uL (0.83-4.51); Basophil# 0.02 X10^3/uL; Basophil% 0.3 % (0-1); Eosinophil# 0.07 X10^3/uL; Eosinophils% 0.9 % (0-5); Hemoglobin 16.1 g/dL (12.0-15.0); Lymphocyte # 1.56 X10^3/ul (0.83-4.51); Mean Corp Hgb Conc 31.6 g/dL (32-36); Mean Corpuscular Hgb 27.5 pg (27.0-32.0); Mean Platelet Vol. 11.1 fl (6.2-12.0); Monocyte# 0.74 X10^3/uL; Monocyte% 9.9 % (0-10); NRBC Flagged by Analyzer 0 % (0-5); Neutrophil # 5.03 X10^3/uL (2.7-7.7); Neutrophil % 67.6 % (47-70); Platelet Count 203 K/mm3 (150-450); RBC Distribution Width CV 14.5 % (11.6-14.6); Red Blood Count 5.86 M/mm3 (4.2-5.4); White Blood Count 7.4 K/mm3 (4.4-11.0)
[2022-07-06 07:11] LABS: Troponin-I HS 65 pg/mL (3.0-54.0)
[2022-07-06 07:23] LABS: ALB/GLOB Ratio 1.1 RATIO (0.9-2.4); AST(SGOT) 23 U/L (15-37); Alanine Aminotransfer ALT/SGPT 27 U/L (13-56); Albumin, Serum 3.5 g/dL (3.2-5.0); Alkaline Phosphatase 77 U/L (45-117); Anion Gap 6 (5-15); BUN 20 mg/dL (7-18); BUN/Creat Ratio 15.7 RATIO (10-20); Calcium,Total 9.1 mg/dL (8.5-10.1); Chloride 109 mmol/L (98-107); Creatinine, Serum 1.27 mg/dL (0.55-1.02); EST Glomerular Filtration Rate 44 mL/min (>60); Est Glom Filt Rate - Afr Amer 53 mL/min (>60); Estimated Creatinine Clearance 41.39 ml/min; Globulin 3.3 g/dL (2.2-4.2); Glucose 101 mg/dL (74-106); Potassium 3.9 mmol/L (3.5-5.1); Protein, Total 6.8 g/dL (6.4-8.2); Sodium Level 142 mmol/L (136-145); Thyroid Stim Hormone (TSH) 2.95 uIU/mL (0.358-3.74)
[2022-07-06] MEDS: Clopidogrel Bisulfate 75 MG Tablet PO (07:48)
[2022-07-06] MEDS: Aspirin 81 MG TAB.CHEW PO (07:48)
[2022-07-06] MEDS: Furosemide 40 MG Tablet PO (13:52)
[2022-07-06] MEDS: Spironolactone 25 MG Tablet PO (13:52)
[2022-07-06] MEDS: dexAMETHasone 4 MG/ML Vial IV (13:52)
[2022-07-06] MEDS: Carvedilol 6.25 MG Tablet PO (13:53)
--- NOTE | 2022-07-06 16:38 | STRESSREP_ITS ---
Stress Test Report Date: 07-06-2022 Procedure: Pharmacologic stress nuclear imaging study Indications: Chest pain; CAD; PCI; CHF Consent: Per the patient Procedure: The patient underwent pharmacologic (Regadenoson 0.4mg ) evaluation with a peak heart rate of 76 beats per minute (52%predicted maximal heart rate) and a resting blood pressure of 152/98 mmHg and a peak blood pressure of 152/98 mmHg. The baseline ECG demonstrated normal sinus rhythm; poor R wave progression. The peak pharmacologic ECG demonstrated no obvious ECG changes. There was a rare PVC pretest and during infusion. There was no complaint of chest discomfort during pharmacologic infusion or recovery. The examination was discontinued secondary to completion of protocol. Impression: 1. Pharmacologic (Regadenoson) evaluation 2. Peak pharmacologic ECG with no obvious ECG changes. 3. There was a rare PVC pretest and during infusion. 4. Nuclear images pending Myocardial perfusion imaging study: Technique: The patient was injected with 14.0 millicuries of technetium 99m Cardiolite and subsequently rest SPECT Cardiolite nuclear imaging was obtained in the horizontal long, vertical long, and short axis views. The patient underwent pharmacologic (Regadenoson) evaluation with a peak heart rate of 76 beats per minute (52 % percent predicted maximal heart rate) and a resting blood pressure of 152/98 mmHg and a peak blood pressure of 152/98 mmHg. The patient was injected with 44.3 millicuries of technetium 99m Cardiolite and subsequently stress SPECT Cardiolite nuclear imaging was obtained in the horizontal long, vertical long, and short axis views. A gated Cardiolite study at peak stress was obtained. Interpretation: Rest and stress SPECT Cardiolite nuclear imaging status post realignment, normalization, and attenuation correction demonstrate the appearance at both rest and stress of diminished absence of myocardial perfusion/tracer uptake in portions of the mid to distal anterior, anteroseptal, anteroapical, and septal apical segment. There is diminished end-systolic thickening and brightening. The gated Cardiolite study demonstrates diminished myocardial thickening and inward wall motion. The reported LVEF is 30%. Impression: 1. Rest and stress SPECT currently nuclear imaging demonstrate myocardial perfusion changes appearing compatible with an area of previous myocardial injury/infarction involving portions of the mid to distal anterior, anteroseptal, anteroapical, and septal apical segments with no myocardial perfusion changes considered diagnostic for associated stress-induced myocardial ischemia. 2. The gated Cardiolite study reports an LVEF of 30%. This note was generated with [employer] software. It may contain incorrect words, spelling, and punctuation that were not noted in checking the note before signing.
--- NOTE | 2022-07-06 17:41 | PCM.PN.HOSP ---
Subjective Subjective [place] a little unsteady after she got up from her MRI, not presently having chest pain or shortness of breath. Objective Data Objective Data Vital Signs: Vital Signs Temp Pulse Resp BP Pulse Ox O2 Del Method 98.2 F 63 16 158/76 H 96 Room Air 07/06/22 17:02 07/06/22 17:02 07/06/22 17:02 07/06/22 17:02 07/06/22 17:02 07/06/22 17:02 Oxygen Delivery Method Room Air Weight: 92.1 kg Body Mass Index (BMI) 29.1 Lab / Micro Data Result Diagrams: 07/06/22 05:35 07/06/22 05:35 Labs: Laboratory Results - last 24 hr 07/05/22 23:00: WBC 7.8, RBC 5.81 H, Hgb 15.9 H, Hct 50.4 H, MCV 86.7, MCH 27.4, MCHC 31.5 L, RDW Std Deviation 46.0 H, RDW Coeff of Beena 14.5, Plt Count 217, MPV 10.8, Immature Gran % (Auto) 0.300, Neut % (Auto) 66.1, Lymph % (Auto) 22.7, Granite % (Auto) 9.3, Eos % (Auto) 1.2, Baso % (Auto) 0.4, Absolute Neuts (auto) 5.2, Absolute Lymphs (auto) 1.76, Nucleated RBC % 0 07/05/22 23:00: Sodium 140, Potassium 4.0, Chloride 106, Carbon Dioxide 29.0, Anion Gap 5, BUN 23 H, Creatinine 1.38 H, Estim Creat Clear Calc 38.09, Est GFR (MDRD) Af Amer 48 L, Est GFR (MDRD) Non-Af 40 L, BUN/Creatinine Ratio 16.7, Glucose 132 H, Calcium 9.2, Troponin I High Sens 31 07/06/22 01:02: Magnesium 2.4 07/06/22 01:07: Troponin I High Sens 41 07/06/22 05:35: WBC 7.4, RBC 5.86 H, Hgb 16.1 H, Hct 51.0 H, MCV 87.0, MCH 27.5, MCHC 31.6 L, RDW Std Deviation 46.0 H, RDW Coeff of Beena 14.5, Plt Count 203, MPV 11.1, Immature Gran % (Auto) 0.300, Neut % (Auto) 67.6, Lymph % (Auto) 21.0, Granite % (Auto) 9.9, Eos % (Auto) 0.9, Baso % (Auto) 0.3, Absolute Neuts (auto) 5.0, Absolute Lymphs (auto) 1.56, Nucleated RBC % 0 07/06/22 05:35: Sodium 142, Potassium 3.9, Chloride 109 H, Carbon Dioxide 27.0, Anion Gap 6, BUN 20 H, Creatinine 1.27 H, Estim Creat Clear Calc 41.39, Est GFR (MDRD) Af Amer 53 L, Est GFR (MDRD) Non-Af 44 L, BUN/Creatinine Ratio 15.7, Glucose 101, Calcium 9.1, Total Bilirubin 0.50, AST 23, ALT 27, Alkaline Phosphatase 77, Total Protein 6.8, Albumin 3.5, Globulin 3.3, Albumin/Globulin Ratio 1.1, TSH 2.95 07/06/22 05:35: Troponin I High Sens 65 H Radiography Diagnostic Testing: Radiology Impression Brain CT 07/05/22 22:44 IMPRESSION: Right parietal white matter hypoattenuation without definite involvement of the cortex, and with effacement of the right occipital horn is suspicious for an underlying malignant mass causing cytotoxic edema. Correlate with brain MRI. Electronically Signed: Terrell Mcelroy MD at 23:45 EST , Chest X-Ray 07/05/22 23:20 IMPRESSION: Emphysema and probable CHF. Electronically Signed: Terrell Mcelroy MD at 23:47 EST , Brain MRI 07/06/22 05:55 IMPRESSION: 1. No focal brain mass or metastatic lesions are present. There is no demonstrated enhancing mass or abnormal thickening or enhancement of the meninges or dura of the brain. 2. Moderate parenchymal loss with postinfarct gliosis is present in the right parietal lobe corresponding to the area of volume loss and hypoattenuation in the same region on the recent head CT. 3. 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 4. Chronic ischemic changes of the white matter. 5. No demonstrated acute infarct or intracranial hemorrhage. Electronically Signed: Nikko Lucas MD at 11:36 EST Reading Location ID and State: [facility] / [place] , Service support , Echocardiogram 07/06/22 05:55 Interpretation Summary The study was technically difficult. Contrast injection was performed. Severely dilated left ventricle. Moderately severe segmental systolic dysfunction (see wall motion). The estimated ejection fraction is 35 %. The left atrium is moderately enlarged. The right atrium is mildly enlarged. Mild-Moderate (1-2+) eccentric mitral valve insufficiency. Mild tricuspid valve insufficiency. Mild diffuse aortic valve thickening. Mild (1+) aortic valve insufficiency. Borderline enlarged aortic root. Right ventricular systolic pressure estimated to be 37 mmHg. Stage 1 diastolic dysfunction. Ordering Physician: Dinora Centeno Referring Physician: Thomas Pastor Performed By: Alpa Albarran, SIERRA, RVT Physical Exam Const alert Constitutional Narrative: Oriented HEENT normocephalic and head/scalp atraumatic Eyes Eyes Narrative: EOM grossly intact, anicteric Neck supple Resp normal respiratory effort and clear to auscultation bilaterally Cardio regular rate and regular rhythm GI soft to palpation, non-tender and non-distended Extremity Extremity Narrative: Minimal peripheral edema appreciated Neuro moves all extremities Neuro Narrative: No overt focal deficits appreciated Psych Psych Narrative: Cooperative Assessment & Plan Assessment/Plan (1) Chest pain: PLAN: Plan #Chest pain and hypertensive urgency Had dizziness and high blood pressures but also has reported intermittent chest squeezing but was vague about timeline Troponins initially negative went up minimally Echo however was abnormal with wall motion abnormalities and reduced EF and stress test while did not show any reversible areas was abnormal and given her symptoms and risk, will consult cardiology Does have history of PCI in the past x2 On aspirin and Plavix Coreg and lisinopril been added Blood pressure improved #CKD stage III Avoid nephrotoxic agents, trend BMP Charges/Coding Visit Charges OBSV E&M: 39932 Subsequent observation care L2
--- NOTE | 2022-07-06 19:58 | CON.PCM.CA_ITS ---
Assessment & Plan Assessment/Plan (1) Abnormal cardiac enzyme level: PLAN: The patient was noted to have an abnormal high-sensitivity troponin I level. This was her third troponin I level. It was mildly elevated. The etiology is unclear at this time. This may be related to the patient's hypertension. Thus, this may be a type II event. From the cardiac standpoint she appears without acute symptoms at this time with respect to an acute coronary syndrome. She will continue to be monitored. She will have follow-up cardiac enzymes and ECGs. She is already undergone noninvasive studies as noted. She should continue medical management for her underlying cardiovascular disease process. This would include her aspirin, antiplatelet agents, beta-blockers, afterload reducing agents such as GALE inhibitor's or ARB's or Entresto, and lipid-lowering agents. (2) CAD (coronary artery disease): PLAN: The patient has a history of CAD. The details are unknown at this time. She does not appear to have ongoing acute coronary syndrome symptoms. Her cardiac enzymes are as noted. A follow-up ECG will be requested. She has already undergone follow-up noninvasive studies as noted. An attempt will be made to obtain her cardiovascular records from outside institutions for continuity of care. Depending upon her clinical status she may or may not need further evaluation in the cardiac catheterization laboratory. In the interim she should continue risk factor evaluation/medical management. This would include monitoring her lipid labs. It also include continuing her medicine such as her aspirin, antiplatelet agents, beta-blockers, lipid-lowering agents such as statins, and other agents as needed for her cardiovascular condition hypertension such as GALE inhibitor's, etc. (3) S/P PTCA (percutaneous transluminal coronary angioplasty): PLAN: The patient has a history of PCI. She does not know the details. Again an attempt will be made to retrieve her outside records from other institutions to assist in her ongoing evaluation and care. (4) Cardiomyopathy, ischemic: PLAN: The patient appears to have an underlying cardiomyopathy based upon her history and objective findings. This is presumed to be an ischemic mediated cardiomyopathy. She should continue medical management. This would include agents such as beta-blockers and afterload reducing agents such as GALE inhibitor's or ARB's or Entresto. She may need other agents as well such as nitrates, diuretics, etc. (5) Chronic systolic CHF (congestive heart failure): PLAN: The patient reports a history of CHF. This is presumed to be systolic mediated based upon her history and objective findings. She does not appear to have acute on chronic systolic CHF at this time. Again its reasonable to continue medical management for her which could include agents such as nitrates, beta-blockers, diuretics, and afterload reducing agents such as GALE inhibitor's or ARB's or Entresto. (6) Essential hypertension: PLAN: The patient's blood pressure was markedly elevated upon arrival. This may be the etiology for her symptoms and her cardiac enzymes. Her blood pressure appears to be gradually improving. She will need to continue medical management with adjustment to try and bring her blood pressure under better control. This adjustment would include increasing her GALE inhibitor therapy. (7) Dizziness: PLAN: The patient's main concern was dizziness. Again this may have been related to her marked hypertension superimposed upon her other cardiovascular disease findings. She is not complaining of this symptom at the moment. She will continue evaluation care as noted. (8) Abnormal echocardiogram: PLAN: As noted the patient does have an abnormal transthoracic echocardiogram demonstrating diminished LV systolic function/LVEF. This is compatible with an underlying cardiomyopathy. Based upon her history this may be an ischemic mediated cardiomyopathy. She will need to continue evaluation care as noted. (9) Abnormal stress test: PLAN: The patient also has an abnormal pharmacologic stress nuclear imaging study. The findings are as noted which demonstrates findings compatible with a previous myocardial infarction. It did not demonstrate ongoing stress-induced myocardial ischemia. At the moment it may be reasonable to continue medical management for the patient for her underlying acute symptoms, acute blood pressure changes, and her cardiovascular history. Depending upon her clinical course she may or may not require further evaluation in the cardiac catheterization laboratory. Addt'l Comments The patient's case has been discussed and reviewed with the patient and her family members present. The present time she is agreeable to continuing medical management. She states she would have to consider whether or not she would want to undergo any further invasive cardiovascular studies versus continuing medical management. Comment: Time spent in the patient's evaluation and care (reviewing medical records, interviewing the patient, examining the patient, reviewing the patient's impression and plan with the patient and family members present, and documentation-placing orders): 60 minutes. This note was generated using a voice recognition system and there may be incorrect words, spelling or punctuation that were not noted when reviewing the office note prior to saving. HPI Consult Data Date of Consult: 07/06/22 HPI Narrative HPI Narrative: MICKEY ARROYO, is a 77 year old Moravian female who presents cardiovascular consultation based upon concerns of abnormal cardiac enzymes, abnormal transthoracic echocardiogram, abnormal pharmacologic stress nuclear imaging study, CAD, status post [place]-remote, status post PCI-remote, congestive heart failure, hypertension, with concerns of dizziness . She states she mainly pr esented to the hospital because of her concerns of dizziness and feeling as if she might lose consciousness. She notes that she did not lose consciousness. She also notes that she has had chest heaviness in the past which has been brought out by certain activities and/or exposure to the cold. She denies ongoing radiation of her discomfort into the neck shoulder or upper extremity area. She states she had no obvious associated nausea or emesis or diaphoresis. She has denied orthopnea, PND, and ongoing peripheral pitting edema. She states she can get tired and fatigued at times. She states she underwent evaluation approximately 5 years ago at [facility] in [place], [place] from a cardiovascular standpoint. At that point in time she believes this was due to a heart attack . She states this led to a diagnostic cardiac catheterization and subsequent stents . She does not know the details of her coronary anatomy, etc. Also, she does not know the details of her left ventricular systolic function at that time. She does recall being told she had congestion . She states that she has also been at [facility] in the past- approximately 1-1/2 years ago. She states that was based upon concerns of gallbladder disease at which time she had a gallstone removed. She believes she may have had an echocardiogram performed prior to that surgery. She states at home her main concern was her dizziness. She noted to [facility] for further evaluation. At her initial evaluation it was noted that her heart rate was 56 bpm and her blood pressure was 184/98 mmHg. She states that she has medicine to take for her blood pressure but she does not believe she takes it on a routine basis. An ECG was performed. Per the emergency department records it stated the ECG revealed no acute ischemia . The ECG is unavailable for review at this time. She also had a chest x-ray performed. This was a portable chest x-ray. Per the [facility] review of the chest x-ray suggested possible increased pulmonary vascularity as well as mild blunting of the costophrenic angles. The radiology report reported hyperinflation, scarring of both lung bases, no edema or effusion or pneumothorax, with a comment of probable CHF. The patient has undergone cardiac enzymes. The initial 2 high-sensitivity troponin I levels were negative. Her third level was mildly elevated at 65. The patient also underwent a transthoracic echocardiogram and a pharmacologic stress nuclear imaging study earlier this day. The results have been reviewed. They demonstrate what appears to be diminished LV systolic function/LVEF as well as evidence of prior myocardial injury/infarction but with no ongoing myocardial ischemia. At the time of cardiovascular consultation the patient states she does feel better than when she came to the hospital. [facility] Medical History (Updated 07/06/22 @ 20:[address] Terrell Alvarado MD) CAD (coronary artery disease) CHF (congestive heart failure) Coronary artery disease Essential hypertension HLD (hyperlipidemia) Myocardial infarction Home Medications aspirin 81 mg chewable tablet 81 mg PO DAILY 01/10/21 [History Last Taken Unknown] clopidogrel 75 mg tablet (Plavix) 75 mg PO DAILY 01/10/21 [History Last Taken Unknown] furosemide 40 mg tablet (Lasix) 40 mg PO DAILY 01/10/21 [History Last Taken Unknown] clonazepam 0.5 mg tablet 0.5 mg PO DAILY 07/06/22 [History Last Taken Unknown] spironolactone 25 mg tablet 25 mg PO DAILY 07/06/22 [History Last Taken Unknown] ursodiol 300 mg capsule 300 mg PO DAILY 07/06/22 [History Last Taken Unknown] zolpidem 10 mg tablet 10 mg PO DAILY 07/06/22 [History Last Taken Unknown] Allergy/AdvReac Type Severity Reaction Status Date / Time No Known Allergies Allergy Verified 07/05/22 22:43 Family History (Updated 07/06/22 @ 01:[address] Dinora Centeno MD) Mother CVA (cerebral vascular accident) Heart disease Myocardial infarction Father CVA (cerebral vascular accident) Heart disease Myocardial infarction Surgical History (Updated 07/06/22 @ 20:[address] Terrell Alvarado MD) History of Hx of coronary angioplasty Social History (Updated 07/06/22 @ 01:[address] Dinora Centeno MD) household members: family Smoking Status: Never smoker alcohol intake: never substance use type: does not use ROS Constitutional Constitutional: Reports fatigue Eyes Eyes: Reports as per HPI ENT HEENT: Reports as per HPI Cardiovascular Cardiovascular: Reports chest pain with activity, dizziness and fatigue Respiratory/Chest Respiratory/Chest: Reports as per HPI Gastrointestinal Gastrointestinal: Reports as per HPI Genitourinary Genitourinary: Reports as per HPI Musculoskeletal Musculoskeletal: Reports as per HPI Integumentary Integumentary: Reports as per HPI Neurologic Neurologic: Reports as per HPI Physical Exam Const alert, oriented x3 and no apparent distress Orientation / Consciousness: awake HEENT normocephalic, head/scalp atraumatic and hearing grossly normal bilaterally Eyes PERRL, EOMs intact bilaterally, conjunctivae normal and no scleral icterus Neck full ROM, supple and no JVD Carotids: normal carotid upstroke Resp normal respiratory effort and clear to auscultation bilaterally Cardio regular rate, regular rhythm, S1 normal heart sound and S2 normal heart sound GI normal to inspection, nondistended, normoactive bowel sounds Extremity no pedal edema Skin no rashes or lesions noted Psych mental status grossly normal Risk Stratification Risk Stratification Applicable: Yes Age >/= 65: Yes >/= 3 CAD Risk Factors (HTN, HLD, DM, family hx of CAD, or current smoker): Yes Aspirin Use in the Past 7 Days: Yes Severe Angina (>/= episodes in 24 hours): No EKG ST Changes >/= 0.5mm: No Positive Cardiac Marker: Yes ANH Risk Stratification Score: 4 ANH % Risk: 20% Risk Procedure Criteria Type of Procedure Procedure Type: Elective Elective Risks - COVID COVID Risk Discussion: The surgeon/proceduralist and patient have discussed in detail the risk of exposure to and/or potential harm posed by the COVID-19 virus with having a surgery/procedure at this time versus the risk of delaying the surgery/procedure. It is not possible to know either the risk of delaying the surgery or procedure or chance of getting an infection with perfect accuracy, but a joint decision was made between the patient and the surgeon/proceduralist to proceed at this time with the scheduled surgery/procedure as indicated on the consent form. Objective Data Vital Signs: Vital Signs Temp Pulse Resp BP Pulse Ox O2 Del Method 98.2 F 63 16 158/76 H 96 Room Air 07/06/22 17:02 07/06/22 17:02 07/06/22 17:02 07/06/22 17:02 07/06/22 17:02 07/06/22 17:02 Oxygen Delivery Method Room Air Weight: 203 lb 0.732 oz Body Mass Index (BMI) 29.1 Lab / Micro Data Result Diagrams: 07/06/22 05:35 07/06/22 05:35 Labs: Laboratory Results - last 24 hr 07/05/22 23:00: WBC 7.8, RBC 5.81 H, Hgb 15.9 H, Hct 50.4 H, MCV 86.7, MCH 27.4, MCHC 31.5 L, RDW Std Deviation 46.0 H, RDW Coeff of Beena 14.5, Plt Count 217, MPV 10.8, Immature Gran % (Auto) 0.300, Neut % (Auto) 66.1, Lymph % (Auto) 22.7, [place] % (Auto) 9.3, Eos % (Auto) 1.2, Baso % (Auto) 0.4, Absolute Neuts (auto) 5.2, Absolute Lymphs (auto) 1.76, Nucleated RBC % 0 07/05/22 23:00: Sodium 140, Potassium 4.0, Chloride 106, Carbon Dioxide 29.0, Anion Gap 5, BUN 23 H, Creatinine 1.38 H, Estim Creat Clear Calc 38.09, Est GFR (MDRD) Af Amer 48 L, Est GFR (MDRD) Non-Af 40 L, BUN/Creatinine Ratio 16.7, Glucose 132 H, Calcium 9.2, Troponin I High Sens 31 07/06/22 01:02: Magnesium 2.4 07/06/22 01:07: Troponin I High Sens 41 07/06/22 05:35: WBC 7.4, RBC 5.86 H, Hgb 16.1 H, Hct 51.0 H, MCV 87.0, MCH 27.5, MCHC 31.6 L, RDW Std Deviation 46.0 H, RDW Coeff of Beena 14.5, Plt Count 203, MPV 11.1, Immature Gran % (Auto) 0.300, Neut % (Auto) 67.6, Lymph % (Auto) 21.0, [place] % (Auto) 9.9, Eos % (Auto) 0.9, Baso % (Auto) 0.3, Absolute Neuts (auto) 5.0, Absolute Lymphs (auto) 1.56, Nucleated RBC % 0 07/06/22 05:35: Sodium 142, Potassium 3.9, Chloride 109 H, Carbon Dioxide 27.0, Anion Gap 6, BUN 20 H, Creatinine 1.27 H, Estim Creat Clear Calc 41.39, Est GFR (MDRD) Af Amer 53 L, Est GFR (MDRD) Non-Af 44 L, BUN/Creatinine Ratio 15.7, Glucose 101, Calcium 9.1, Total Bilirubin 0.50, AST 23, ALT 27, Alkaline Phosphatase 77, Total Protein 6.8, Albumin 3.5, Globulin 3.3, Albumin/Globulin Ratio 1.1, TSH 2.95 07/06/22 05:35: Troponin I High Sens 65 H Cardiology Labs/Tests 07/05/22 23:00: WBC 7.8, RBC 5.81 H, Hgb 15.9 H, Hct 50.4 H, MCV 86.7, MCH 27.4, MCHC 31.5 L, Plt Count 217, MPV 10.8, Immature Gran % (Auto) 0.300, Neut % (Auto) 66.1, Lymph % (Auto) 22.7, [place] % (Auto) 9.3, Eos % (Auto) 1.2, Baso % (Auto) 0.4, Absolute Neuts (auto) 5.2, Nucleated RBC % 0 07/05/22 23:00: Sodium 140, Potassium 4.0, Chloride 106, Carbon Dioxide 29.0, Anion Gap 5, BUN 23 H, Creatinine 1.38 H, Est GFR (MDRD) Af Amer 48 L, Est GFR (MDRD) Non-Af 40 L, BUN/Creatinine Ratio 16.7, Glucose 132 H, Calcium 9.2 07/06/22 01:02: Magnesium 2.4 07/06/22 05:35: WBC 7.4, RBC 5.86 H, Hgb 16.1 H, Hct 51.0 H, MCV 87.0, MCH 27.5, MCHC 31.6 L, Plt Count 203, MPV 11.1, Immature Gran % (Auto) 0.300, Neut % (Auto) 67.6, Lymph % (Auto) 21.0, [place] % (Auto) 9.9, Eos % (Auto) 0.9, Baso % (Auto) 0.3, Absolute Neuts (auto) 5.0, Nucleated RBC % 0 07/06/22 05:35: Sodium 142, Potassium 3.9, Chloride 109 H, Carbon Dioxide 27.0, Anion Gap 6, BUN 20 H, Creatinine 1.27 H, Est GFR (MDRD) Af Amer 53 L, Est GFR (MDRD) Non-Af 44 L, BUN/Creatinine Ratio 15.7, Glucose 101, Calcium 9.1, Total Bilirubin 0.50 Rhythm: Sinus rhythm EKG: Unavailable for review Echocardiogram: 07-06-2022 Reason For Study: CHF Procedure This was a 2D Doppler, Color Flow transthoracic echocardiogram. The study was te chnically difficult. Due to body habitus. Contrast injection was performed. Exam performed portable in ED. Left Ventricle Severely dilated left ventricle. Moderately severe segmental systolic dysfunc tion (see wall motion). The estimated ejection fraction is 35 %. Stage 1 diastolic dysfunction. Basal inferoseptal: Hypokinetic. Basal anteroseptal: Akinetic. Mid-Anterior : Hypokinetic. Mid- Lateral : Hypokinetic. Mid-Posterior: Hypokinetic. Mid-Inferior: Hypokinetic. Mid-inferoseptal : Hypokinetic. Mid- anteroseptal : Akinetic. Anterior [place] : Hypokinetic. Inferior [place] : Akinetic. Lateral [place] : Hypokinetic. Septal [place] : Akinetic. Right Ventricle Normal RV size. Normal systolic function. Atria The left atrium is moderately enlarged. The right atrium is mildly enlarged. No doppler evidence for ASD. Mitral Valve There is no mitral annular calcification. Normal mitral valve. Mild-Moderate (1- 2+) eccentric mitral valve insufficiency. Tricuspid Valve Normal tricuspid valve. Mild tricuspid valve insufficiency. Right ventricular systolic pressure estimated to be 37 mmHg. Aortic Valve Trisinus/trileaflet aortic valve. Mild diffuse aortic valve thickening. Mild (1+) aortic valve insufficiency. Pulmonic Valve The pulmonic valve is not well visualized. Great Vessels Borderline enlarged aortic root. Pericardium/Pleural No pericardial effusion. Medication Diluted definity 2.5ml given slow IV push to enhance endocardial definition. MMode/2D Measurements & Calculations LVIDd: 6.6 cm ? IVSd: 0.86 cm? Ao root diam: 3.9 cm LVIDs: 5.5 cm ? LVPWd: 0.96 cm RVDd: 2.8 cm? FS: 16.3 % ? ___ LAV(MOD-bp): 118.6 ml ? LVAd ap4: 39.1 cm2 ? LVAd ap2: 35.4 cm2 LAV(MOD-bp) Indexed: 56.4 ml/m2 ? LVLd ap4: 8.6 cm ? LVLd ap2: 8.5 cm LAV(MOD-sp2): 105.8 ml? EDV(MOD-sp4): 147.3 ml ? EDV(MOD- sp2): 120.9 ml LAV(MOD-sp4): 116.0 ml? EDV(sp4-el): 151.2 ml? EDV(sp2- el): 124.7 ml ? LVAs ap4: 29.3 cm2 ? LVAs ap2: 27.0 cm2 ? LVLs ap4: 7.6 cm ? LVLs ap2: 8.2 cm ? ESV(MOD-sp4): 93.3 ml? ESV(MOD- sp2): 76.9 ml ? ESV(sp4-el): 95.8 ml ? ESV(sp2- el): 76.0 ml ? EF(MOD-sp4): 36.7 %? EF(MOD- sp2): 36.3 % ? EF(sp4-el): 36.6 % ? SV(MOD-sp4): 54.0 ml? SV(MOD-sp2): 43.9 ml ? SV(sp4- el): 55.4 ml ? LA A4 area: 30.5 cm2? LA dimension(2D): 3.6 cm ? ? ? RA A4 area: 25.3 cm2 Time Measurements MV dec time: 0.24 sec Doppler Measurements & Calculations MV E max malik: 33.6 cm/sec? Lat Peak E' Malik: 3.7 cm/sec? ? ? Med Peak E' Malik: 4.0 cm/sec MV A max malik: 79.3 cm/sec? E/E' lat: 9.0? E/E' med: 8.3 MV E/A: 0.42 ? _ Ao V2 max: 119.2 cm/sec? AI max malik: 448.8 cm/sec ? LV V1 max: 73.3 cm/sec Ao max P.7 mmHg? AI max P.6 mmHg ? LV V1 max P.2 mmHg Ao V2 mean: 80.8 cm/sec ? LV V1 mean P.2 mmHg Ao mean P.0 mmHg ? AI dec slope: 165.5 cm/sec2? ? ? LV V1 mean: 51.2 cm/sec Ao V2 VTI: 30.1 cm ? AI P1/2t: 794.0 msec ? LV V1 VTI: 18.8 cm AV (velocity ratio): 0.63 ? PA V2 max: 79.9 cm/sec ? TR max malik: 267.0 cm/sec ? TR max P.5 mmHg ECHO/Echo Complete W/ Contrast Interpretation Summary The study was technically difficult. Contrast injection was performed. ? Severely dilated left ventricle. Moderately severe segmental systolic dysfunction (see wall motion). The estimated ejection fraction is 35 %. The left atrium is moderately enlarged. The right atrium is mildly enlarged. Mild-Moderate (1-2+) eccentric mitral valve insufficiency. Mild tricuspid valve insufficiency. Mild diffuse aortic valve thickening. Mild (1+) aortic valve insufficiency. Borderline enlarged aortic root. Right ventricular systolic pressure estimated to be 37 mmHg. Stage 1 diastolic dysfunction. ? ? Ordering Physician: Dinora Centeno Referring Physician: Thomas Pastor Performed By: Alpa Albarran, SIERRA, RVT Stress Test Report Date: 07-06-2022 Procedure: Pharmacologic stress nuclear imaging study? Indications: Chest pain; CAD; PCI; CHF Consent: Per the patient Procedure: The patient underwent pharmacologic (Regadenoson 0.4mg ) evaluation with a peak heart rate of 76 beats per minute (52%predicted maximal heart rate) and a resting blood pressure of 152/98 mmHg and a peak blood pressure of 152/98 mmHg. The baseline ECG demonstrated normal sinus rhythm; poor R wave progression.? The peak pharmacologic ECG demonstrated no obvious ECG changes. There was a rare PVC pretest and during infusion. There was no complaint of chest discomfort during pharmacologic infusion or recovery. The examination was discontinued secondary to completion of protocol. Impression: 1.? Pharmacologic (Regadenoson) evaluation 2.? Peak pharmacologic ECG with no obvious ECG changes. 3.? There was a rare PVC pretest and during infusion. 4.? Nuclear images pending Myocardial perfusion imaging study: Technique: The patient was injected with 14.0 millicuries of technetium 99m Cardiolite and subsequently rest SPECT Cardiolite nuclear imaging was obtained in the horizontal long, vertical long, and short axis views. The patient underwent pharmacologic (Regadenoson) evaluation with a peak heart rate of 76 beats per minute (52 % percent predicted maximal heart rate) and a resting blood pressure of 152/98 mmHg and a peak blood pressure of 152/98 mmHg. The patient was injected with 44.3 millicuries of technetium 99m Cardiolite and subsequently stress SPECT Cardiolite nuclear imaging was obtained in the horizontal long, vertical long, and short axis views.? A gated Cardiolite study at peak stress wa s obtained. Interpretation: Rest and stress SPECT Cardiolite nuclear imaging status post realignment, normalization, and attenuation correction demonstrate the appearance at both rest and stress of diminished absence of myocardial perfusion/tracer uptake in portions of the mid to distal anterior, anteroseptal, anteroapical, and septal apical segment.? There is diminished end-systolic thickening and brightening.? The gated Cardiolite study demonstrates diminished myocardial thickening and inward wall motion.? The reported LVEF is 30%. Impression: 1.? Rest and stress SPECT currently nuclear imaging demonstrate myocardial perfusion changes appearing compatible with an area of previous myocardial injury/infarction involving portions of the mid to distal anterior, anteroseptal, anteroapical, and septal apical segments with no myocardial perfusion changes considered diagnostic for associated stress-induced myocardial ischemia. 2.? The gated Cardiolite study reports an LVEF of 30%. This note was generated with [employer] software. It may contain incorrect words, spelling, and punctuation that were not noted in checking the note before signing. 07/06/22 1646 <Electronically signed by Terrell Alvarado MD> Radiography Diagnostic Testing: Radiology Impression Brain CT 07/05/22 22:44 IMPRESSION: Right parietal white matter hypoattenuation without definite involvement of the cortex, and with effacement of the right occipital horn is suspicious for an underlying malignant mass causing cytotoxic edema. Correlate with brain MRI. Electronically Signed: Terrell Mcelroy MD at 23:45 EST , Chest X-Ray 07/05/22 23:20 IMPRESSION: Emphysema and probable CHF. Electronically Signed: Terrell Mcelroy MD at 23:47 EST , Brain MRI 07/06/22 05:55 IMPRESSION: 1. No focal brain mass or metastatic lesions are present. There is no demonstrated enhancing mass or abnormal thickening or enhancement of the meninges or dura of the brain. 2. Moderate parenchymal loss with postinfarct gliosis is present in the right parietal lobe corresponding to the area of volume loss and hypoattenuation in the same region on the recent head CT. 3. 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 4. Chronic ischemic changes of the white matter. 5. No demonstrated acute infarct or intracranial hemorrhage. Electronically Signed: Nikko Lucas MD at 11:36 EST Reading Location ID and State: [facility] / [place] , Service support , Echocardiogram 07/06/22 05:55 Interpretation Summary The study was technically difficult. Contrast injection was performed. Severely dilated left ventricle. Moderately severe segmental systolic dysfunction (see wall motion). The estimated ejection fraction is 35 %. The left atrium is moderately enlarged. The right atrium is mildly enlarged. Mild-Moderate (1-2+) eccentric mitral valve insufficiency. Mild tricuspid valve insufficiency. Mild diffuse aortic valve thickening. Mild (1+) aortic valve insufficiency. Borderline enlarged aortic root. Right ventricular systolic pressure estimated to be 37 mmHg. Stage 1 diastolic dysfunction. Ordering Physician: Dinora Centeno Referring Physician: Thomas Pastor Performed By: Alpa Albarran, SIERRA, RVT
[2022-07-06] MEDS: Zolpidem Tartrate 5 MG Tablet 10 MG PO (21:08)
[2022-07-06] MEDS: Atorvastatin Calcium 40 MG Tablet PO (21:08)
[2022-07-07] VITALS (9 sets, daily range): BP systolic 120–167; BP diastolic 55–77; PULSE 41–96; RESP 16–18; TEMP 36.4–36.7; O2SAT 95–100
--- NOTE | 2022-07-07 05:55 | EKG12_ITS ---
Test Reason : AM EKG Blood Pressure : / mmHG Vent. Rate : 046 BPM Atrial Rate : 046 BPM P-R Int : 140 ms QRS Dur : 084 ms QT Int : 508 ms P-R-T Axes : 075 042 129 degrees QTc Int : 444 ms Sinus bradycardia with sinus arrhythmia Septal infarct , age undetermined ST & T wave abnormality, consider lateral ischemia Abnormal ECG Confirmed by CATHERINE VARELA, TREVOR ([id number]), copy editor BRADY MAHAN ([id number]) on 07/13/2022 10:28:18 AM Referred By: OTTONIEL Confirmed By:TREVOR ALEXANDER MD
[2022-07-07 07:14] LABS: Absolute Lymphocyte Count 1.22 X10^3/uL (0.83-4.51); Absolute Neutrophil Count 9.8 X10^3/uL (2.0-7.7); Basophil# 0.01 X10^3/uL; Basophil% 0.1 % (0-1); Hematocrit 46.6 % (37-47); Hemoglobin 15.1 g/dL (12.0-15.0); Lymphocyte # 1.22 X10^3/ul (0.83-4.51); Lymphocyte % 10.3 % (19-41); Mean Corp Hgb Conc 32.4 g/dL (32-36); Mean Corpuscular Hgb 28.1 pg (27.0-32.0); Mean Corpuscular Volume 86.6 fL (81-99); Mean Platelet Vol. 11.1 fl (6.2-12.0); Monocyte# 0.74 X10^3/uL; Monocyte% 6.3 % (0-10); NRBC Flagged by Analyzer 0 % (0-5); Neutrophil # 9.82 X10^3/uL (2.7-7.7); Neutrophil % 82.9 % (47-70); Platelet Count 203 K/mm3 (150-450); RBC Distribution Width CV 14.6 % (11.6-14.6); RBC Distribution Width SD 46.4 fl (35.1-43.9); Red Blood Count 5.38 M/mm3 (4.2-5.4); White Blood Count 11.8 K/mm3 (4.4-11.0)
[2022-07-07 07:51] LABS: Anion Gap 4 (5-15); BUN 27 mg/dL (7-18); BUN/Creat Ratio 18.2 RATIO (10-20); Calcium,Total 8.8 mg/dL (8.5-10.1); Chloride 107 mmol/L (98-107); Cholesterol 153 mg/dL (200); Creatinine, Serum 1.48 mg/dL (0.55-1.02); EST Glomerular Filtration Rate 37 mL/min (>60); Est Glom Filt Rate - Afr Amer 44 mL/min (>60); Estimated Creatinine Clearance 35.52 ml/min; Glucose 140 mg/dL (74-106); High Density Lipoprotein 38 mg/dL; Potassium 4.6 mmol/L (3.5-5.1); Sodium Level 141 mmol/L (136-145); Triglycerides 140 mg/dL; Troponin-I HS 38 pg/mL (3.0-54.0); Very Low Density Lipoprotein 28 mg/dL (5-40)
--- NOTE | 2022-07-07 09:02 | PN.CARD_ITS ---
Subjective Subjective The patient is awake and alert. She states she feels much better than when she presented to the hospital. She denies any ongoing complaints of chest discomfort, difficulty breathing, dizziness, near-syncope/syncope. She states she has had skipped beats in the past. Objective Data Vital Signs: Vital Signs Temp Pulse Resp BP Pulse Ox O2 Del Method 97.7 F L 58 L 16 167/77 H 99 Room Air 07/07/22 08:23 07/07/22 08:23 07/07/22 08:23 07/07/22 08:23 07/07/22 08:23 07/07/22 08:23 Oxygen Delivery Method Room Air Weight: 194 lb 6.4 oz Body Mass Index (BMI) 29.1 Lab / Micro Data Result Diagrams: 07/07/22 06:41 07/07/22 06:41 Labs: Laboratory Results - last 24 hr 07/07/22 06:41: Sodium 141, Potassium 4.6, Chloride 107, Carbon Dioxide 30.0, Anion Gap 4 L, BUN 27 H, Creatinine 1.48 H, Estim Creat Clear Calc 35.52, Est GFR (MDRD) Af Amer 44 L, Est GFR (MDRD) Non-Af 37 L, BUN/Creatinine Ratio 18.2, Glucose 140 H, Calcium 8.8, Troponin I High Sens 38, Triglycerides 140, Cholesterol 153, LDL Cholesterol 87, VLDL Cholesterol 28, HDL Cholesterol 38 L 07/07/22 06:41: WBC 11.8 H, RBC 5.38, Hgb 15.1 H, Hct 46.6, MCV 86.6, MCH 28.1, MCHC 32.4, RDW Std Deviation 46.4 H, RDW Coeff of Beena 14.6, Plt Count 203, MPV 11.1, Immature Gran % (Auto) 0.400, Neut % (Auto) 82.9 H, Lymph % (Auto) 10.3 L, [place] % (Auto) 6.3, Eos % (Auto) 0.0, Baso % (Auto) 0.1, Absolute Neuts (auto) 9.8 H, Absolute Lymphs (auto) 1.22, Nucleated RBC % 0 Cardiology Labs/Tests 07/07/22 06:41: Sodium 141, Potassium 4.6, Chloride 107, Carbon Dioxide 30.0, Anion Gap 4 L, BUN 27 H, Creatinine 1.48 H, Est GFR (MDRD) Af Amer 44 L, Est GFR (MDRD) Non-Af 37 L, BUN/Creatinine Ratio 18.2, Glucose 140 H, Calcium 8.8, Triglycerides 140, Cholesterol 153, LDL Cholesterol 87, VLDL Cholesterol 28, HDL Cholesterol 38 L 07/07/22 06:41: WBC 11.8 H, RBC 5.38, Hgb 15.1 H, Hct 46.6, MCV 86.6, MCH 28.1, MCHC 32.4, Plt Count 203, MPV 11.1, Immature Gran % (Auto) 0.400, Neut % (Auto) 82.9 H, Lymph % (Auto) 10.3 L, [place] % (Auto) 6.3, Eos % (Auto) 0.0, Baso % (Auto) 0.1, Absolute Neuts (auto) 9.8 H, Nucleated RBC % 0 Rhythm: Sinus rhythm, PACs, PVCs, brief episodes appearing compatible with an ectopic atrial rhythm/tachycardia, 1 episode appearing compatible with a nonsustained wide-complex tachycardia compatible with a nonsustained VT (approximately 12 xfywb-jdfwamfczyyr-al hemodynamic compromise reported) EK07-07-2022: Sinus bradycardia, septal ME of indeterminate age, ST/T wave abnormality: Consider myocardial ischemia: Lateral Radiography Diagnostic Testing: Radiology Impression Brain MRI 07/06/22 05:55 IMPRESSION: 1. No focal brain mass or metastatic lesions are present. There is no demonstrated enhancing mass or abnormal thickening or enhancement of the meninges or dura of the brain. 2. Moderate parenchymal loss with postinfarct gliosis is present in the right parietal lobe corresponding to the area of volume loss and hypoattenuation in the same region on the recent head CT. 3. 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 4. Chronic ischemic changes of the white matter. 5. No demonstrated acute infarct or intracranial hemorrhage. Electronically Signed: Nikko Lucas MD at 11:36 EST , Echocardiogram 07/06/22 05:55 Interpretation Summary The study was technically difficult. Contrast injection was performed. Severely dilated left ventricle. Moderately severe segmental systolic dysfunction (see wall motion). The estimated ejection fraction is 35 %. The left atrium is moderately enlarged. The right atrium is mildly enlarged. Mild-Moderate (1-2+) eccentric mitral valve insufficiency. Mild tricuspid valve insufficiency. Mild diffuse aortic valve thickening. Mild (1+) aortic valve insufficiency. Borderline enlarged aortic root. Right ventricular systolic pressure estimated to be 37 mmHg. Stage 1 diastolic dysfunction. Ordering Physician: Dinora Centeno Referring Physician: Thomas Pastor Performed By: Alpa Albarran RDCS, RVT Physical Exam Const alert, oriented x3 and no apparent distress Orientation / Consciousness: awake HEENT normocephalic, head/scalp atraumatic and hearing grossly normal bilaterally Eyes PERRL, EOMs intact bilaterally, conjunctivae normal and no scleral icterus Neck full ROM, supple and no JVD Resp normal respiratory effort and clear to auscultation bilaterally Cardio regular rate, regular rhythm, S1 normal heart sound and S2 normal heart sound Rhythm: abnormal rhythm ectopic beats and other GI normal to inspection, nondistended, normoactive bowel sounds Extremity no pedal edema Skin no rashes or lesions noted Psych mental status grossly normal Assessment & Plan Assessment/Plan (1) Abnormal cardiac enzyme level: PLAN: The patient was noted to have an abnormal high-sensitivity troponin I level. This was her third troponin I level. It was mildly elevated. Subsequent follow-up troponin I level was reported as negative. This may be related to the patient's hypertension. Thus, this may be a type II event. From the cardiac standpoint she appears without acute symptoms at this time with respect to an acute coronary syndrome. She will continue to be monitored. She is already undergone noninvasive studies as noted. She should continue medical management for her underlying cardiovascular disease process. This would include her aspirin, antiplatelet agents, beta-blockers, afterload reducing agents such as GALE inhibitor's or ARB's or Entresto, and lipid-lowering agents. (2) CAD (coronary artery disease): PLAN: The patient has a history of CAD. The details are unknown at this time. She does not appear to have ongoing acute coronary syndrome symptoms. Her cardiac enzymes are as noted. She has already undergone follow-up noninvasive studies as noted. An attempt will be made to obtain her cardiovascular records from outside institutions for continuity of care. Thus far they have not yet arrived In the interim she should continue risk factor evaluation/medical management. Lipid labs were evaluated. Her total cholesterol was 153 with an LDL of 87 and an HDL of 38. Her triglycerides were 140. She should continue lipid-lowering therapy to minimize her cardiovascular risks. This includes her statin medication/atorvastatin Should also continue her medicine such as her aspirin, antiplatelet agents, beta-blockers, and other agents as needed for her cardiovascular condition hypertension such as GALE inhibitor's, etc. (3) S/P PTCA (percutaneous transluminal coronary angioplasty): PLAN: The patient has a history of PCI. She does not know the details. Again an attempt will be made to retrieve her outside records from other institutions to assist in her ongoing evaluation and care. (4) Cardiomyopathy, ischemic: PLAN: The patient appears to have an underlying cardiomyopathy based upon her history and objective findings. This is presumed to be an ischemic mediated cardiomyopathy. She should continue medical management. This would include agents such as beta-blockers and afterload reducing agents such as GALE inhibitor's or ARB's or Entresto. She may need other agents as well such as nitrates, diuretics, etc. Over time, depending upon the patient's clinical course and left ventricular systolic function/LVEF she may need to be considered for EP consultation for ICD placement. (5) Chronic systolic CHF (congestive heart failure): PLAN: The patient reports a history of CHF. This is presumed to be systolic mediated based upon her history and objective findings. She does not appear to have acute on chronic systolic CHF at this time. Again its reasonable to continue medical management for her which could include agents such as nitrates, beta-blockers, diuretics, and afterload reducing agents such as GALE inhibitor's or ARB's or Entresto. (6) Essential hypertension: PLAN: The patient's blood pressure was markedly elevated upon arrival. This may be the etiology for her symptoms and her cardiac enzymes. Her blood pressure appears to be gradually improving. She will need to continue medical management with adjustment to try and bring her blood pressure under better control. Her GALE inhibitor/lisinopril dose will be increased to 20 mg p.o. twice daily to assist with blood pressure control. This may also provide additional benefit with respect to her underlying ischemic cardiomyopathy and chronic systolic CHF. (7) Dizziness: PLAN: The patient's main concern was dizziness. Again this may have been related to her marked hypertension superimposed upon her other cardiovascular disease findings. She is not complaining of this symptom at the moment. She will continue evaluation care as noted. (8) Abnormal echocardiogram: PLAN: As noted the patient does have an abnormal transthoracic echocardiogram demonstrating diminished LV systolic function/LVEF. This is compatible with an underlying cardiomyopathy. Based upon her history this may be an ischemic mediated cardiomyopathy. She will need to continue evaluation care as noted. (9) Abnormal stress test: PLAN: The patient also has an abnormal pharmacologic stress nuclear imaging study. The findings are as noted which demonstrates findings compatible with a previous myocardial infarction. It did not demonstrate ongoing stress-induced myocardial ischemia., There is no immediate plans for additional evaluation with diagnost ic cardiac catheterization. At the moment it may be reasonable to continue medical management for the patient for her underlying acute symptoms, acute blood pressure changes, and her cardiovascular history. (10) Cardiac dysrhythmia: PLAN: The patient is noted on monitoring and evaluation advisor to have evidence of cardiac ectopy with PACs and PVCs as well as evidence potentially compatible with brief episodes of an ectopic atrial rhythm/tachycardia and 1 episode of a nonsustained wide-complex tachycardia compatible with a nonsustained VT (approximately 12 nwhdh-txwbfwuwvgvs-ag hemodynamic compromise). These findings may not be new for the patient. This was based upon her notation of having skipped beats in the past. These findings may be compatible with her underlying CAD and ischemic mediated cardiomyopathy. Based upon these findings her medications will be adjusted to take into consideration heart rate, heart rhythm, and blood pressure. This will include decreasing her beta-abdulkadir dose, based upon concerns of bradycardia at times, to Coreg 3.125 mg p.o. twice daily. It will also include adding low-dose amiodarone at 200 mg p.o. daily with the hopes of helping to minimize ectopy/dysrhythmia and maintain sinus rhythm. To help compensate for her blood pressure, with respect to decreasing her beta- abdulkadir dose, her GALE inhibitor/lisinopril dose will be increased to 20 mg p.o. twice daily. Addt'l Comments The above was discussed at length with the patient and her family members present. At the present time the patient wants to continue conservative medical management. As the patient states she is feeling better, but she hopes that especially with her blood pressure improving, that she can be released home. She states as an outpatient she would be willing to follow-up with outpatient visits with her physicians. This note was generated using a voice recognition system and there may be incorrect words, spelling or punctuation that were not noted when reviewing the office note prior to saving. Comment: Time spent in the patient's evaluation and care: 45 minutes. Procedure Criteria Type of Procedure Procedure Type: Elective Elective Risks - COVID COVID Risk Discussion: The surgeon/proceduralist and patient have discussed in detail the risk of exposure to and/or potential harm posed by the COVID-19 virus with having a surgery/procedure at this time versus the risk of delaying the surgery/procedure. It is not possible to know either the risk of delaying the surgery or procedure or chance of getting an infection with perfect accuracy, but a joint decision was made between the patient and the surgeon/proceduralist to proceed at this time with the scheduled surgery/procedure as indicated on the consent form.
[2022-07-07] MEDS: Clopidogrel Bisulfate 75 MG Tablet PO (09:25)
[2022-07-07] MEDS: Lisinopril 20 MG Tablet PO ×2 (09:25→21:28)
[2022-07-07] MEDS: Carvedilol 3.125 MG TABLET PO ×2 (09:25→21:28)
[2022-07-07] MEDS: Aspirin 81 MG TAB.CHEW PO (09:25)
[2022-07-07] MEDS: Amiodarone 200 MG Tablet PO (09:25)
[2022-07-07] MEDS: Furosemide 40 MG Tablet 20 MG PO (09:25)
[2022-07-07 09:55] LABS: Thyroid Stim Hormone (TSH) 0.54 uIU/mL (0.358-3.74)
[2022-07-07 12:46] LABS: Anion Gap 3 (5-15); BUN 26 mg/dL (7-18); Calcium,Total 8.9 mg/dL (8.5-10.1); Chloride 104 mmol/L (98-107); Creatinine, Serum 1.53 mg/dL (0.55-1.02); EST Glomerular Filtration Rate 35 mL/min (>60); Est Glom Filt Rate - Afr Amer 43 mL/min (>60); Estimated Creatinine Clearance 34.36 ml/min; Glucose 126 mg/dL (74-106); Potassium 4.1 mmol/L (3.5-5.1); Sodium Level 138 mmol/L (136-145)
--- NOTE | 2022-07-07 18:41 | PN.HOSP_ITS ---
Subjective Subjective Slept well last night, feeling somewhat better today Objective Data Objective Data Vital Signs: Vital Signs Temp Pulse Resp BP Pulse Ox O2 Del Method 98.1 F 45 L 16 134/55 H 98 Room Air 07/07/22 14:00 07/07/22 14:59 07/07/22 14:00 07/07/22 14:00 07/07/22 14:00 07/07/22 14:00 Oxygen Delivery Method Room Air Weight: 88.178 kg Body Mass Index (BMI) 29.1 Lab / Micro Data Result Diagrams: 07/07/22 06:41 07/07/22 12:04 Labs: Laboratory Results - last 24 hr 07/07/22 06:41: Sodium 141, Potassium 4.6, Chloride 107, Carbon Dioxide 30.0, Anion Gap 4 L, BUN 27 H, Creatinine 1.48 H, Estim Creat Clear Calc 35.52, Est GFR (MDRD) Af Amer 44 L, Est GFR (MDRD) Non-Af 37 L, BUN/Creatinine Ratio 18.2, Glucose 140 H, Calcium 8.8, Troponin I High Sens 38, Triglycerides 140, Cholesterol 153, LDL Cholesterol 87, VLDL Cholesterol 28, HDL Cholesterol 38 L 07/07/22 06:41: WBC 11.8 H, RBC 5.38, Hgb 15.1 H, Hct 46.6, MCV 86.6, MCH 28.1, MCHC 32.4, RDW Std Deviation 46.4 H, RDW Coeff of Beena 14.6, Plt Count 203, MPV 11.1, Immature Gran % (Auto) 0.400, Neut % (Auto) 82.9 H, Lymph % (Auto) 10.3 L, [place] % (Auto) 6.3, Eos % (Auto) 0.0, Baso % (Auto) 0.1, Absolute Neuts (auto) 9.8 H, Absolute Lymphs (auto) 1.22, Nucleated RBC % 0 07/07/22 06:41: TSH 0.54 07/07/22 12:04: Sodium 138, Potassium 4.1, Chloride 104, Carbon Dioxide 31.0, Anion Gap 3 L, BUN 26 H, Creatinine 1.53 H, Estim Creat Clear Calc 34.36, Est GFR (MDRD) Af Amer 43 L, Est GFR (MDRD) Non-Af 35 L, BUN/Creatinine Ratio 17.0, Glucose 126 H, Calcium 8.9 Physical Exam Const alert Constitutional Narrative: Oriented HEENT normocephalic and head/scalp atraumatic Eyes Eyes Narrative: EOM grossly intact, anicteric Neck supple Resp normal respiratory effort and clear to auscultation bilaterally Cardio regular rate and regular rhythm GI soft to palpation, non-tender and non-distended Extremity Extremity Narrative: Minimal peripheral edema appreciated Neuro moves all extremities Neuro Narrative: No overt focal deficits appreciated Psych Psych Narrative: Cooperative Assessment & Plan Assessment/Plan (1) Chest pain: PLAN: Plan #Chest pain and hypertensive urgency Had dizziness and high blood pressures but also has reported intermittent chest squeezing but was vague about timeline Troponins initially negative went up minimally Echo however was abnormal with wall motion abnormalities and reduced EF and stress test while did not show any reversible areas was abnormal and given her symptoms and risk, will consult cardiology Does have history of PCI in the past x2 On aspirin and Plavix Coreg and lisinopril been added Blood pressure improved 07/07: Troponin this a.m. within normal limits, not presently having chest pain. Has noted that she has had intermittent skipped beats in the past and had a episode of nonsustained V. tach and some ectopy on telemetry so amiodarone was added. Lisinopril increased, Coreg decreased. #Cardiomyopathy, likely ischemic History of PCI x2 Stress test with nonreversible ischemia Echo demonstrating EF of 35% with moderately severe segmental systolic dysfunction, left atrium moderately enlarged, RVSP 37, stage I diastolic dysfunction Beta-abdulkadir, GALE Receiving Lasix 20 mg p.o. #Coronary artery disease with history of PCI Aspirin, statin, beta-abdulkadir #TERRA on CKD stage III Kidney function worsened today Will obtain urine studies including urine urea as she is on Lasix May further need to adjust medications pending repeat BMP in the a.m. #DVT ppx: SCDs Jacqui Torre MD Charges/Coding Visit Charges OBSV E&M: [id number] Subsequent observation care L2
[2022-07-07] MEDS: Atorvastatin Calcium 40 MG Tablet PO (21:28)
[2022-07-07] MEDS: Zolpidem Tartrate 5 MG Tablet 10 MG PO (21:28)
[2022-07-07 21:53] LABS: Urine Chloride 32 mmol/L (Not Establ.); Urine Sodium 34 mmol/L (Not Establ.)
[2022-07-07 21:59] LABS: Urea Nitrogen, Urine 640 mg/dL (NO RANGE EST.)
[2022-07-08] VITALS (7 sets, daily range): BP systolic 123–167; BP diastolic 53–73; PULSE 40–55; RESP 16–18; TEMP 36.6–37.2; O2SAT 93–100
[2022-07-08 05:53] LABS: Absolute Lymphocyte Count 2.14 X10^3/uL (0.83-4.51); Absolute Neutrophil Count 5.6 X10^3/uL (2.0-7.7); Basophil# 0.02 X10^3/uL; Basophil% 0.2 % (0-1); Eosinophil# 0.06 X10^3/uL; Eosinophils% 0.7 % (0-5); Hematocrit 45.9 % (37-47); Hemoglobin 14.9 g/dL (12.0-15.0); Lymphocyte # 2.14 X10^3/ul (0.83-4.51); Lymphocyte % 24.9 % (19-41); Mean Corp Hgb Conc 32.5 g/dL (32-36); Mean Corpuscular Hgb 28.3 pg (27.0-32.0); Mean Corpuscular Volume 87.3 fL (81-99); Mean Platelet Vol. 11.3 fl (6.2-12.0); Monocyte# 0.69 X10^3/uL; NRBC Flagged by Analyzer 0 % (0-5); Neutrophil # 5.64 X10^3/uL (2.7-7.7); Neutrophil % 65.9 % (47-70); Platelet Count 170 K/mm3 (150-450); RBC Distribution Width CV 14.6 % (11.6-14.6); RBC Distribution Width SD 46.7 fl (35.1-43.9); Red Blood Count 5.26 M/mm3 (4.2-5.4); White Blood Count 8.6 K/mm3 (4.4-11.0)
[2022-07-08 06:22] LABS: Anion Gap 5 (5-15); BUN 39 mg/dL (7-18); BUN/Creat Ratio 26.9 RATIO (10-20); Calcium,Total 8.3 mg/dL (8.5-10.1); Chloride 105 mmol/L (98-107); Creatinine, Serum 1.45 mg/dL (0.55-1.02); EST Glomerular Filtration Rate 37 mL/min (>60); Est Glom Filt Rate - Afr Amer 45 mL/min (>60); Estimated Creatinine Clearance 36.25 ml/min; Glucose 80 mg/dL (74-106); Potassium 3.9 mmol/L (3.5-5.1); Sodium Level 140 mmol/L (136-145)
[2022-07-08] MEDS: Aspirin 81 MG TAB.CHEW PO (08:23)
--- NOTE | 2022-07-08 10:09 | PN.CARD_ITS ---
Subjective Subjective The patient is awake and alert. She has been up and out of bed ambulating in her room and sitting in a bedside chair. She denies any ongoing chest discomfort, difficulty breathing, or dizziness. Objective Data Vital Signs: Vital Signs Temp Pulse Resp BP Pulse Ox O2 Del Method 99.0 F 55 L 18 148/66 H 100 Room Air 07/08/22 08:18 07/08/22 08:18 07/08/22 08:18 07/08/22 08:18 07/08/22 08:18 07/08/22 08:21 Oxygen Delivery Method Room Air Weight: 201 lb Body Mass Index (BMI) 29.1 Lab / Micro Data Result Diagrams: 07/08/22 05:02 07/08/22 05:02 Labs: Laboratory Results - last 24 hr 07/07/22 12:04: Sodium 138, Potassium 4.1, Chloride 104, Carbon Dioxide 31.0, Anion Gap 3 L, BUN 26 H, Creatinine 1.53 H, Estim Creat Clear Calc 34.36, Est GFR (MDRD) Af Amer 43 L, Est GFR (MDRD) Non-Af 35 L, BUN/Creatinine Ratio 17.0, Glucose 126 H, Calcium 8.9 07/07/22 19:44: Urine Creatinine 88.70 07/07/22 19:44: Urine Urea Nitrogen 640 07/07/22 19:44: Ur Random Sodium 34, Urine Potassium 45.0, Urine Chloride 32 07/08/22 05:02: WBC 8.6, RBC 5.26, Hgb 14.9, Hct 45.9, MCV 87.3, MCH 28.3, MCHC 32.5, RDW Std Deviation 46.7 H, RDW Coeff of Beena 14.6, Plt Count 170, MPV 11.3, Immature Gran % (Auto) 0.300, Neut % (Auto) 65.9, Lymph % (Auto) 24.9, [place] % (Auto) 8.0, Eos % (Auto) 0.7, Baso % (Auto) 0.2, Absolute Neuts (auto) 5.6, Absolute Lymphs (auto) 2.14, Nucleated RBC % 0 07/08/22 05:02: Sodium 140, Potassium 3.9, Chloride 105, Carbon Dioxide 30.0, Anion Gap 5, BUN 39 H, Creatinine 1.45 H, Estim Creat Clear Calc 36.25, Est GFR (MDRD) Af Amer 45 L, Est GFR (MDRD) Non-Af 37 L, BUN/Creatinine Ratio 26.9 H, Glucose 80, Calcium 8.3 L Cardiology Labs/Tests 07/07/22 12:04: Sodium 138, Potassium 4.1, Chloride 104, Carbon Dioxide 31.0, Anion Gap 3 L, BUN 26 H, Creatinine 1.53 H, Est GFR (MDRD) Af Amer 43 L, Est GFR (MDRD) Non-Af 35 L, BUN/Creatinine Ratio 17.0, Glucose 126 H, Calcium 8.9 07/08/22 05:02: WBC 8.6, RBC 5.26, Hgb 14.9, Hct 45.9, MCV 87.3, MCH 28.3, MCHC 32.5, Plt Count 170, MPV 11.3, Immature Gran % (Auto) 0.300, Neut % (Auto) 65.9, Lymph % (Auto) 24.9, [place] % (Auto) 8.0, Eos % (Auto) 0.7, Baso % (Auto) 0.2, Absolute Neuts (auto) 5.6, Nucleated RBC % 0 07/08/22 05:02: Sodium 140, Potassium 3.9, Chloride 105, Carbon Dioxide 30.0, Anion Gap 5, BUN 39 H, Creatinine 1.45 H, Est GFR (MDRD) Af Amer 45 L, Est GFR (MDRD) Non-Af 37 L, BUN/Creatinine Ratio 26.9 H, Glucose 80, Calcium 8.3 L Rhythm: Sinus rhythm; PACs; PVCs Physical Exam Const alert, oriented x3 and no apparent distress Orientation / Consciousness: awake HEENT normocephalic, head/scalp atraumatic and hearing grossly normal bilaterally Eyes PERRL, EOMs intact bilaterally, conjunctivae normal and no scleral icterus Neck full ROM, supple and no JVD Resp normal respiratory effort and clear to auscultation bilaterally Cardio regular rate, regular rhythm, S1 normal heart sound and S2 normal heart sound Rhythm: abnormal rhythm ectopic beats and other GI normal to inspection, nondistended, normoactive bowel sounds Extremity no pedal edema Skin no rashes or lesions noted Psych mental status grossly normal Assessment & Plan Assessment/Plan (1) Abnormal cardiac enzyme level: PLAN: The patient was noted to have an abnormal high-sensitivity troponin I level. This was her third troponin I level. It was mildly elevated. Subsequent follow-up troponin I level was reported as negative. This may be related to the patient's hypertension. Thus, this may be a type II event. From the cardiac standpoint she appears without acute symptoms at this time with respect to an acute coronary syndrome. She will continue to be monitored. She is already undergone noninvasive studies as noted. She should continue medical management for her underlying cardiovascular disease process. This would include her aspirin, antiplatelet agents, beta-blockers, afterload reducing agents such as GALE inhibitor's or ARB's or Entresto, and lipid-lowering agents. (2) CAD (coronary artery disease): PLAN: The patient has a history of CAD. The details are unknown at this time. She does not appear to have ongoing acute coronary syndrome symptoms. Her cardiac enzymes are as noted. She has already undergone follow-up noninvasive studies as noted. Lipid labs were evaluated. Her total cholesterol was 153 with an LDL of 87 and an HDL of 38. Her triglycerides were 140. She should continue lipid-lowering therapy to minimize her cardiovascular risks. This includes her statin medi cation/atorvastatin Should also continue her medicine such as her aspirin, antiplatelet agents, bet a-blockers, and other agents as needed for her cardiovascular condition hypertension such as GALE inhibitor's, etc. (3) S/P PTCA (percutaneous transluminal coronary angioplasty): PLAN: The patient has a history of PCI. She does not know the details. (4) Cardiomyopathy, ischemic: PLAN: The patient appears to have an underlying cardiomyopathy based upon her history and objective findings. This is presumed to be an ischemic mediated cardiomyopathy. She should continue medical management. This would include agents such as beta-blockers and afterload reducing agents such as GALE inhibitor's or ARB's or Entresto. She may need other agents as well such as nitrates, diuretics, etc. Over time, depending upon the patient's clinical course and left ventricular systolic function/LVEF she may need to be considered for EP consultation for ICD placement. (5) Chronic systolic CHF (congestive heart failure): PLAN: The patient reports a history of CHF. This is presumed to be systolic mediated based upon her history and objective findings. She does not appear to have acute on chronic systolic CHF at this time. Again its reasonable to continue medical management for her which could include agents such as nitrates, beta-blockers, diuretics, and afterload reducing agents such as GALE inhibitor's or ARB's or Entresto. (6) Essential hypertension: PLAN: The patient's blood pressure was markedly elevated upon arrival. This may be the etiology for her symptoms and her cardiac enzymes. Her blood pressure appears to be gradually improving. She will need to continue medical management with adjustment to try and bring her blood pressure under better control. Her GALE inhibitor/lisinopril dose was increased to 20 mg p.o. twice daily to assist with blood pressure control. This may also provide additional benefit with respect to her underlying ischemic cardiomyopathy and chronic systolic CHF. (7) Dizziness: PLAN: The patient's main concern was dizziness. Again this may have been related to her marked hypertension superimposed upon her other cardiovascular disease findings. She is not complaining of this symptom at the moment. She will continue evaluation care as noted. (8) Abnormal echocardiogram: PLAN: As noted the patient does have an abnormal transthoracic echocardiogram demonstrating diminished LV systolic function/LVEF. This is compatible with an underlying cardiomyopathy. Based upon her history this may be an ischemic mediated cardiomyopathy. She will need to continue evaluation care as noted. (9) Abnormal stress test: PLAN: The patient also has an abnormal pharmacologic stress nuclear imaging study. The findings are as noted which demonstrates findings compatible with a previous myocardial infarction. It did not demonstrate ongoing stress-induced myocardial ischemia., There is no immediate plans for additional evaluation with diagnostic cardiac catheterization. At the moment it may be reasonable to continue medical management for the patient for her underlying acute symptoms, acute blood pressure changes, and her cardiovascular history. (10) Cardiac dysrhythmia: PLAN: The patient is noted on cardiac/vascular sonographer to have evidence of cardiac ectopy with PACs and PVCs as well as evidence potentially compatible with brief episodes of an ectopic atrial rhythm/tachycardia and 1 episode of a nonsustained wide-complex tachycardia compatible with a nonsustained VT (approximately 12 [id number]-ne hemodynamic compromise). These findings may not be new for the patient. This was based upon her notation of having skipped beats in the past. These findings may be compatible with her underlying CAD and ischemic mediated cardiomyopathy. Based upon these findings her medications will be adjusted to take into consideration heart rate, heart rhythm, and blood pressure. This will include decreasing her beta-abdulkadir dose, based upon concerns of bradycardia at times, to Coreg 3.125 mg p.o. twice daily. It is also included the addition of amiodarone therapy. Initially this was at 200 mg p.o. daily. This will be decreased to 100 mg p.o. daily based upon concerns of any interaction with her other medications and bradycardia. Lilian'constantine Comments Her case was reviewed with her. At the present time she does want to continue conservative medical management. A discussion was held with With respect to the possible need for future ICD placement based upon her cardiovascular condition and findings. At the moment she states she does not want to proceed in that manner. Thus, she will continue medical management. Thank you for allowing me to participate in the care of your patient. Please don't hesitate to call if any issues arise. This note was generated using a voice recognition system and there may be incorrect words, spelling or punctuation that were not noted when reviewing the office note prior to saving. Procedure Criteria Type of Procedure Procedure Type: Elective Elective Risks - COVID COVID Risk Discussion: The surgeon/proceduralist and patient have discussed in detail the risk of exposure to and/or potential harm posed by the COVID-19 virus with having a surgery/procedure at this time versus the risk of delaying the surgery/pr ocedure. It is not possible to know either the risk of delaying the surgery or procedure or chance of getting an infection with perfect accuracy, but a joint decision was made between the patient and the surgeon/proceduralist to proceed at this time with the scheduled surgery/procedure as indicated on the consent form.
[2022-07-08] MEDS: Furosemide 40 MG Tablet 20 MG PO (11:01)
[2022-07-08] MEDS: Clopidogrel Bisulfate 75 MG Tablet PO (11:02)
[2022-07-08] MEDS: Carvedilol 3.125 MG TABLET PO (11:02)
[2022-07-08] MEDS: Lisinopril 20 MG Tablet PO (11:02)
[2022-07-08] MEDS: Amiodarone 200 MG Tablet 100 MG PO (11:47)
--- NOTE | 2022-07-08 14:23 | DCINST_ITS ---
Discharge Instructions Diet Discharge Diet: - (Cardiac diet) Activity Discharge Activity: Return to Normal Activity Follow Up Care Test Results: Test results from this visit will be discussed in further detail at your follow- up appointment, if applicable. Discharge Plan Admission Admit Date/Time: 07/06/22 00:44 Primary Reason for Your Visit: Dizziness and chest tightness Attending Provider: Jacqui Torre Primary Care Provider: Thomas Pastor Consulting Providers: Dinora Centeno ; Terrell Alvarado Instructions Patient Instructions: Discharge Instructions for Angina Additional Instructions / Restrictions: *Please take this with you to your next doctors appointment* ?Please follow-up with cardiology upon discharge. If you do not presently follow with a cashier or checker stock clerk you can follow-up with [facility], contact information below ? You have had multiple medication changes as follows: ?You have been started on amiodarone 100 mg that you will take daily ? You have been started on atorvastatin 40 mg at bedtime ? You have been started on carvedilol 3.125 mg twice daily ? You have been started on lisinopril 20 mg twice daily ?Your Lasix dose was decreased to 20 mg daily ?You will no longer take spironolactone ?You will need to take an aspirin and a statin. ? All new scripts have been sent to your preferred pharmacy on file ?It is generally advised not to take Klonopin and Ambien together at the same time as they both increase the risk of changes in mental status and falls. We will discuss this with your primary care physician. ? It is recommended that you obtain blood work (BMP) to check your kidney function early next week. Advise calling her primary care physician upon discharge to obtain order for blood work ? It is advised that you check your blood pressure and your heart rate daily, if your heart rate is less than 50, your blood pressure is higher than 160/80 or lower than 100/50 please call your primary care physician for further instruction on your medication -Please call your primary care provider's office upon discharge to schedule a hospital follow up within 1 week. -For any concerning signs or symptoms please call 911 or proceed to the nearest emergency department Discharge Orders/Prescriptions Prescriptions: New atorvastatin 40 mg Tablet 40 mg PO QHS 30 Days Qty: 30 0RF amiodarone 200 mg Tablet 100 mg PO DAILY 30 Days Qty: 15 0RF lisinopril 20 mg Tablet 20 mg PO BID 30 Days Qty: 60 0RF carvedilol 3.125 mg Tablet 3.125 mg PO BID 30 Days Qty: 60 0RF Continued ursodiol 300 mg capsule 300 mg PO DAILY zolpidem 10 mg tablet 10 mg PO DAILY clopidogrel [Plavix] 75 mg Tablet 75 mg PO DAILY 30 Days Qty: 0 0RF aspirin 81 mg Tablet,Chewable 81 mg PO DAILY 30 Days Qty: 0 0RF Changed furosemide [Lasix] 40 mg Tablet 20 mg PO DAILY 30 Days Qty: 15 0RF Held clonazepam 0.5 mg tablet 0.5 mg PO DAILY Hold Instructions: Resume on 07/13/22. Please hold till discussing with your primary care physician Discontinued spironolactone 25 mg tablet 25 mg PO DAILY Referrals / Follow Up: Thomas Pastor DO [Primary Care Provider] - Within 1 Week Terrell Alvarado MD [Med Staff - Active Staff] - See Referral Note (Please follow-up with your cashier or checker stock clerk upon discharge, if you are not actively following with a cashier or checker stock clerk you can establish with [facility], please call to schedule hospital follow-up appointment) Disposition Disposition (needs filled in before D/C Order can be placed): Home, Self Care
--- NOTE | 2022-07-08 14:39 | PCM.DC.SUM ---
Providers Date of Admission: 07/06/22 Date of Discharge: 07/08/22 Primary Care Physician: Dr. Thomas Pastor, Consultations 07/06/22 17:41 Consult: Cardiology Routine Consulting Provider: Terrell Alvarado Reason for Consult: intermittent chest tightness, abn echo, abn stress, mild trop elevation EMERGENT Consult: No MD Notified: Yes Date Notified: 07/06/22 Time Notified: 17:41 Method of Notification: Verbal Method of Consult:: In-Person Reason For Visit: CHEST PAIN Diagnosis Discharge Diagnosis (1) Abnormal cardiac enzyme level: Status: Acute Code(s): R74.8 - Abnormal levels of other serum enzymes (2) CAD (coronary artery disease): Status: Acute Code(s): I25.10 - Atherosclerotic heart disease of [place] coronary artery without angina pectoris (3) S/P PTCA (percutaneous transluminal coronary angioplasty): Status: Acute Code(s): Z98.61 - Coronary angioplasty status (4) Cardiomyopathy, ischemic: Status: Acute Code(s): I25.5 - Ischemic cardiomyopathy (5) Chronic systolic CHF (congestive heart failure): Status: Chronic Code(s): I50.22 - Chronic systolic (congestive) heart failure (6) Essential hypertension: Status: Acute Code(s): I10 - Essential (primary) hypertension (7) Dizziness: Status: Acute Code(s): R42 - Dizziness and giddiness (8) Abnormal echocardiogram: Status: Acute Code(s): R93.1 - Abnormal findings on diagnostic imaging of heart and coronary circulation (9) Abnormal stress test: Status: Acute Code(s): R94.39 - Abnormal result of other cardiovascular function study (10) Cardiac dysrhythmia: Status: Acute Code(s): I49.9 - Cardiac arrhythmia, unspecified Plan #Chest pain and hypertensive urgency #Cardiomyopathy, likely ischemic, heart failure with combined systolic and diastolic dysfunction #Coronary artery disease with history of PCI #TERRA on CKD stage III-improved Medications at Discharge Home Medications clonazepam 0.5 mg tablet 0.5 mg PO DAILY 07/06/22 ursodiol 300 mg capsule 300 mg PO DAILY 07/06/22 zolpidem 10 mg tablet 10 mg PO DAILY 07/06/22 amiodarone 200 mg tablet 100 mg PO DAILY 30 days #15 tabs 07/08/22 aspirin 81 mg chewable tablet 81 mg PO DAILY 30 days #0 tabs 07/08/22 atorvastatin 40 mg tablet 40 mg PO QHS 30 days #30 tabs 07/08/22 carvedilol 3.125 mg tablet 3.125 mg PO BID 30 days #60 tabs 07/08/22 clopidogrel 75 mg tablet (Plavix) 75 mg PO DAILY 30 days #0 tabs 07/08/22 furosemide 40 mg tablet (Lasix) 20 mg PO DAILY 30 days #15 tabs 07/08/22 lisinopril 20 mg tablet 20 mg PO BID 30 days #60 tabs 07/08/22 Hospital Course Procedures - (Stress test, echocardiogram, CT of the head, MRI of the head) Summary of Care Provided Minutes Spent on Discharge: 35 Hospital Course: 77F w/ PMH of congestive heart failure, hypertension, coronary artery disease presented 07/06/2022 with dizziness and malaise as well as some chest pressure. Blood pressure at home reportedly over 200 systolic and she had not been taking any of her hypertensive regimen for unclear reasons which prompted her to take an old blood pressure medicine unclear type with some improvement of her dizziness however she then began to have intermittent chest pressure midsternal and presented to the ED. In the ED work-up not overtly remarkable but given history and chest pain as well as hypertensive urgency she was admitted. She had serial cardiac enzymes with the last one being minimally elevated, was started on aspirin and Plavix and echo stress test ordered. Echo showed severely dilated left ventricle, moderately severe segmental systolic dysfunction, EF 35%, mild to moderate mild valve insufficiency, stage I diastolic dysfunction, RVSP 37%. Stress test demonstrated perfusion changes compatible with area of previous myocardial injury/infarction involving portions of the mid to distal anterior, anteroseptal, anterior apical, septal apical segments. Given her history with concerning symptoms upon presentation and very mild but positive troponin cardiology consulted. Medications adjusted and no intervention warranted at this time. Did have bump in kidney function day prior to discharge but this trended down. She had no further symptoms and was stable for discharge. On the day of discharge she had no complaints, no chest pain, no dizziness, no shortness of breath. She did have an abnormal CT of her head in the ED concerning for possible mass on admission but MRI showed moderate parenchymal loss with postinfarct gliosis that was present around the right parietal lobe corresponding to the area of volume loss and hypoattenuation in the same region on the recent head CT. Also had a small old lacunar infarct present on the right side of the midbrain. Instructions provided for patient as below: *Please take this with you to your next doctors appointment* ?Please follow-up with cardiology upon discharge. If you do not presently follow with a package maker you can follow-up with [facility], contact information below ? You have had multiple medication changes as follows: ?You have been started on amiodarone 100 mg that you will take daily ? You have been started on atorvastatin 40 mg at bedtime ? You have been started on carvedilol 3.125 mg twice daily ? You have been started on lisinopril 20 mg twice daily ?Your Lasix dose was decreased to 20 mg daily ?You will no longer take spironolactone ?You will need to take an aspirin and a statin. ? All new scripts have been sent to your preferred pharmacy on file ?It is generally advised not to take Klonopin and Ambien together at the same time as they both increase the risk of changes in mental status and falls. We will discuss this with your primary care physician. ? It is recommended that you obtain blood work (BMP) to check your kidney function early next week. Advise calling her primary care physician upon discharge to obtain order for blood work ? It is advised that you check your blood pressure and your heart rate daily, if your heart rate is less than 50, your blood pressure is higher than 160/80 or lower than 100/50 please call your primary care physician for further instruction on your medication -Please call your primary care provider's office upon discharge to schedule a hospital follow up within 1 week. -For any concerning signs or symptoms please call 911 or proceed to the nearest emergency department Physical Exam Const alert Constitutional Narrative: Oriented HEENT normocephalic and head/scalp atraumatic Eyes Eyes Narrative: EOM grossly intact, anicteric Neck supple Resp normal respiratory effort and clear to auscultation bilaterally Cardio regular rate GI soft to palpation, non-tender and non-distended Extremity Extremity Narrative: Minimal peripheral edema appreciated Neuro moves all extremities Neuro Narrative: No overt focal deficits appreciated Psych Psych Narrative: Cooperative Weight / BMI Weight Weight: 91.172 kg Body Mass Index (BMI) 29.1 ABG / Lab / Microbiology Data Result Diagrams: 07/08/22 05:02 07/08/22 05:02 Laboratory: Laboratory Results - last 24 hr 07/07/22 19:44: Urine Creatinine 88.70 07/07/22 19:44: Urine Urea Nitrogen 640 07/07/22 19:44: Ur Random Sodium 34, Urine Potassium 45.0, Urine Chloride 32 07/08/22 05:02: WBC 8.6, RBC 5.26, Hgb 14.9, Hct 45.9, MCV 87.3, MCH 28.3, MCHC 32.5, RDW Std Deviation 46.7 H, RDW Coeff of Beena 14.6, Plt Count 170, MPV 11.3, Immature Gran % (Auto) 0.300, Neut % (Auto) 65.9, Lymph % (Auto) 24.9, [facility] % (Auto) 8.0, Eos % (Auto) 0.7, Baso % (Auto) 0.2, Absolute Neuts (auto) 5.6, Absolute Lymphs (auto) 2.14, Nucleated RBC % 0 07/08/22 05:02: Sodium 140, Potassium 3.9, Chloride 105, Carbon Dioxide 30.0, Anion Gap 5, BUN 39 H, Creatinine 1.45 H, Estim Creat Clear Calc 36.25, Est GFR (MDRD) Af Amer 45 L, Est GFR (MDRD) Non-Af 37 L, BUN/Creatinine Ratio 26.9 H, Glucose 80, Calcium 8.3 L D/C Instructions Discharge Diet: - (Cardiac diet) Meaningful Use Info Meaningful Use Diagnoses (Choose all that apply): CHF CHF GALE/ARB ordered at discharge?: Yes Documented LVEF (%): 35 Discharge Plan Admission Admit Date/Time: 07/06/22 00:44 Primary Reason for Your Visit: Dizziness and chest tightness Attending Provider: Jacqui Torre Primary Care Provider: Thomas Pastor Consulting Providers: Dinora Centeno ; Terrell Alvarado Instructions Patient Instructions: Discharge Instructions for Angina Additional Instructions / Restrictions: *Please take this with you to your next doctors appointment* ?Please follow-up with cardiology upon discharge. If you do not presently follow with a package maker you can follow-up with [facility], contact information below ? You have had multiple medication changes as follows: ?You have been started on amiodarone 100 mg that you will take daily ? You have been started on atorvastatin 40 mg at bedtime ? You have been started on carvedilol 3.125 mg twice daily ? You have been started on lisinopril 20 mg twice daily ?Your Lasix dose was decreased to 20 mg daily ?You will no longer take spironolactone ?You will need to take an aspirin and a statin. ? All new scripts have been sent to your preferred pharmacy on file ?It is generally advised not to take Klonopin and Ambien together at the same time as they both increase the risk of changes in mental status and falls. We will discuss this with your primary care physician. ? It is recommended that you obtain blood work (BMP) to check your kidney function early next week. Advise calling her primary care physician upon discharge to obtain order for blood work ? It is advised that you check your blood pressure and your heart rate daily, if your heart rate is less than 50, your blood pressure is higher than 160/80 or lower than 100/50 please call your primary care physician for further instruction on your medication -Please call your primary care provider's office upon discharge to schedule a hospital follow up within 1 week. -For any concerning signs or symptoms please call 911 or proceed to the nearest emergency department Discharge Orders/Prescriptions Prescriptions: New atorvastatin 40 mg Tablet 40 mg PO QHS 30 Days Qty: 30 0RF amiodarone 200 mg Tablet 100 mg PO DAILY 30 Days Qty: 15 0RF lisinopril 20 mg Tablet 20 mg PO BID 30 Days Qty: 60 0RF carvedilol 3.125 mg Tablet 3.125 mg PO BID 30 Days Qty: 60 0RF Continued ursodiol 300 mg capsule 300 mg PO DAILY zolpidem 10 mg tablet 10 mg PO DAILY clopidogrel [Plavix] 75 mg Tablet 75 mg PO DAILY 30 Days Qty: 0 0RF aspirin 81 mg Tablet,Chewable 81 mg PO DAILY 30 Days Qty: 0 0RF Changed furosemide [Lasix] 40 mg Tablet 20 mg PO DAILY 30 Days Qty: 15 0RF Held clonazepam 0.5 mg tablet 0.5 mg PO DAILY Hold Instructions: Resume on 07/13/22. Please hold till discussing with your primary care physician Discontinued spironolactone 25 mg tablet 25 mg PO DAILY Referrals / Follow Up: Thomas Pastor DO [Primary Care Provider] - Within 1 Week Terrell Alvarado MD [Med Staff - Active Staff] - See Referral Note (Please follow-up with your package maker upon discharge, if you are not actively following with a package maker you can establish with [facility], please call to schedule hospital follow-up appointment) Disposition Disposition (needs filled in before D/C Order can be placed): Home, Self Care Charges/Coding Visit Charges OBSV E&M: 44079 Observation care discharge
--- NOTE | 2022-07-08 14:47 | CASEMGMT ---
MARIXA LOYOLA NOTE: Pt being discharged home. MARIXA LOYOLA to room. Pt resting in bed. Introduced self and role. Pt states she has no concerns w/going home, stating she lives w/family and they can help if needed. She did inquire if [facility] Van can take her home today. MARIXA LOYOLA placed call to [facility] van staff. They are full for today and do not have availability to transfer pt home. Pt and dtr made aware. They state they will call for a milk tanker driver. Meds have been e-scribed to [facility] pharmacy. Dtr states she will go down to pick them up. Shane, in the pharmacy, states will be about 45 min til they are ready to be picked up. Dtr made aware. They deny having other discharge planning needs or concerns. Davi HER RN CM
== END 2022-07-08 16:16 | disposition home or self-care (01) ==
LOC: ED 07-06 00:37 → PCU 07-06 03:28 → MS2 07-06 09:16
PROVIDERS: Internal Medicine Cardiovascular Disease; Admitting Provider Family Medicine; Emergency Provider Emergency Medicine; PCP Family Medicine; Visit Provider Internal Medicine
DX: I16.0 Hypertensive urgency (principal); I13.0 Hypertensive heart and chronic kidney disease with heart failure and stage 1 through stage 4 chronic kidney disease, or unspecified chronic kidney disease; I50.42 Chronic combined systolic (congestive) and diastolic (congestive) heart failure; N18.30 Chronic kidney disease, stage 3 unspecified; I49.1 Atrial premature depolarization; R94.39 Abnormal result of other cardiovascular function study; G93.9 Disorder of brain, unspecified; I25.5 Ischemic cardiomyopathy; I25.10 Atherosclerotic heart disease of native coronary artery without angina pectoris; Z79.82 Long term (current) use of aspirin; E78.5 Hyperlipidemia, unspecified; R74.8 Abnormal levels of other serum enzymes; Z79.899 Other long term (current) drug therapy; Z79.02 Long term (current) use of antithrombotics/antiplatelets; I25.2 Old myocardial infarction
CPT/HCPCS: 36415; 70450; 70553; 71045; 78452; 80048; 80053; 80061; 82436; 82570; 83735; 84133; 84300; 84443; 84484; 84540; 85025; 93005; 93017; 93306; 96374; 96376; 99221; 99285; A9500; A9575; Q9957; A4216; C8929; G0378; J2785

== ENCOUNTER 2022-07-12 16:57 | Emergency (ER) | payer OTHER, SELFPAY ==
[2022-07-12 16:58] VITALS: BP 188/88; PULSE 74; RESP 14; TEMP 37.1; O2SAT 97; BMI 34.2
[2022-07-12 16:59] VITALS: BP 136/94; PULSE 98; RESP 15; TEMP 36.6; O2SAT 98; BMI 28.7
--- NOTE | 2022-07-12 17:35 | EKG12_ITS ---
Test Reason : SOB Blood Pressure : / mmHG Vent. Rate : 059 BPM Atrial Rate : 059 BPM P-R Int : 170 ms QRS Dur : 082 ms QT Int : 418 ms P-R-T Axes : 067 004 121 degrees QTc Int : [address] & T wave abnormality, consider lateral ischemia Poor R wave progression Anterior AL, age undetermined, cannot be excluded Abnormal ECG Confirmed by CATHERINE VARELA, TREVOR ([id number]), book or script editor BRADY MAHAN ([id number]) on 07/14/2022 9:41:39 AM Referred By: Confirmed By:TREVOR ALEXANDER MD
--- NOTE | 2022-07-12 17:35 | EX.ED.DYSGE1 ---
HPI History of Present Illness Chief Complaint: Hypertension Informant: patient Narrative Narrative: Patient presents after reporting that her blood pressure spiked at home today. She states she just started not feeling right and felt slightly dizzy. She took her blood pressure earlier this afternoon and noted both numbers to be well over 100. She took her lisinopril and a half a dose of clonidine. She states when she got up this morning her blood pressure was normal so therefore she did not take any of her blood pressure medications. Blood pressure is improving at this time and patient states her symptoms are improving. Patient was recently hospitalized with hypertension and chest pain. [facility] Medical History Atherosclerotic heart disease of [place] coronary artery without angina pectoris CAD (coronary artery disease) CHF (congestive heart failure) Coronary artery disease Essential hypertension History of ST elevation myocardial infarction (STEMI) HLD (hyperlipidemia) Hypertension Mixed hyperlipidemia Myocardial infarction Presence of stent in coronary artery (~08/17/17) Home Medications clonazepam 0.5 mg tablet 0.5 mg PO DAILY 07/06/22 [History Last Taken Unknown] ursodiol 300 mg capsule 300 mg PO DAILY 07/06/22 [History Last Taken Unknown] zolpidem 10 mg tablet 10 mg PO DAILY 07/06/22 [History Last Taken Unknown] amiodarone 200 mg tablet 100 mg PO DAILY 30 days #15 tabs 07/08/22 [Rx Last Taken Unknown] aspirin 81 mg chewable tablet 81 mg PO DAILY 30 days #0 tabs 07/08/22 [Rx Last Taken Unknown] atorvastatin 40 mg tablet 40 mg PO QHS 30 days #30 tabs 07/08/22 [Rx Last Taken Unknown] carvedilol 3.125 mg tablet 3.125 mg PO BID 30 days #60 tabs 07/08/22 [Rx Last Taken Unknown] clopidogrel 75 mg tablet (Plavix) 75 mg PO DAILY 30 days #0 tabs 07/08/22 [Rx Last Taken Unknown] furosemide 40 mg tablet (Lasix) 20 mg PO DAILY 30 days #15 tabs 07/08/22 [Rx Last Taken Unknown] lisinopril 20 mg tablet 20 mg PO BID 30 days #60 tabs 07/08/22 [Rx Last Taken Unknown] clonidine HCl 0.1 mg tablet 0.1 mg PO PRN PRN Hypertension 07/12/22 [History Last Taken Unknown] Allergy/AdvReac Type Severity Reaction Status Date / Time No Known Allergies Allergy Verified 07/12/22 17:01 Family History Mother CVA (cerebral vascular accident) Heart disease Myocardial infarction Father CVA (cerebral vascular accident) Heart disease Myocardial infarction Surgical History History of Hx of coronary angioplasty Presence of coronary angioplasty implant and graft (~08/17/17) S/P PTCA (percutaneous transluminal coronary angioplasty) Social History household members: family Smoking Status: Never smoker alcohol intake: never substance use type: does not use ROS ROS ED Constitutional Constitutional ED: Denies chills or fever(s) Eyes Eyes: Denies change in vision or discharge from eye(s) ENT ENT ED: Denies discharge from eye(s), rhinorrhea or sore throat Cardiovascular Cardiovascular: Denies chest pain or palpitations Respiratory/Chest Respiratory/Chest: Denies cough or dyspnea Gastrointestinal Gastrointestinal: Denies abdominal pain, diarrhea, nausea or vomiting Genitourinary Genitourinary ED: Denies dysuria Musculoskeletal Musculoskeletal: Denies back pain or extremity pain Integumentary Denies Abrasions or rash Neurologic Neurologic: Reports other Details: Dizziness ; Denies headache(s) or weakness Psychiatric Psychiatric: Denies anxiety or depression Allergic/Immunologic Allergic/Immunologic ED: Denies lip swelling or urticaria EXAM Physical Exam Const Vital Signs: 07/12/22 16:58 07/12/22 16:59 07/12/22 17:50 Temperature 98.8 F 97.8 F Temperature Source Oral Temporal Pulse Rate 74 98 Respiratory Rate 14 15 Respiratory Pattern Normal Blood Pressure 188/88 H 136/94 H Blood Pressure Mean 121 108 Pulse Ox 97 98 Oxygen Delivery Method Room Air Room Air Positive well nourished and well developed General Appearance ED: well developed HEENT Reports normocephalic and head/scalp atraumatic Eyes PERRL and EOMs intact bilaterally Neck supple Chest Wall inspection of chest normal and palpation of chest normal Resp normal respiratory effort and clear to auscultation bilaterally Cardio regular rate and regular rhythm GI non-tender Auscultation: hypoactive bowel sounds Palpation: soft Extremity normal to inspection Neuro oriented x3 and no sensory deficits noted Sensorium / Orientation: alert Motor Exam: strength 5/5 throughout Psych mental status grossly normal Skin no rashes or lesions noted MDM MDM MDM Narrative Medical decision making narrative: Patient's most recent hospitalization and work-up was reviewed. EKG, lab work, urinalysis obtained. Patient is denying any urinary symptoms or abdominal pain. Lab Data Attestation: I reviewed the patient's lab results. Labs: Laboratory Results - last 24 hr 07/12/22 07/12/22 07/12/22 17:48 17:48 18:05 WBC 7.7 RBC 5.34 Hgb 14.8 Hct 45.9 MCV 86.0 MCH 27.7 MCHC 32.2 RDW Std Deviation 42.7 RDW Coeff of Beena 13.9 Plt Count 172 MPV 11.5 Immature Gran % (Auto) 0.400 Neut % (Auto) 69.3 Lymph % (Auto) 18.7 L [place] % (Auto) 9.2 Eos % (Auto) 2.1 Baso % (Auto) 0.3 Absolute Neuts (auto) 5.4 Absolute Lymphs (auto) 1.45 Nucleated RBC % 0 Sodium 136 Potassium 4.1 Chloride 104 Carbon Dioxide 25.0 Anion Gap 7 BUN 27 H Creatinine 1.45 H Estim Creat Clear Calc 36.25 Est GFR (MDRD) Af Amer 45 L Est GFR (MDRD) Non-Af 37 L BUN/Creatinine Ratio 18.6 Glucose 107 H Calcium 8.7 Urine Color Yellow Urine Clarity Sl. Cloudy Urine pH 7.[address] [place] 1.010 Urine Protein Negative Urine Glucose (UA) Normal Urine Ketones Negative Urine Occult Blood Negative Urine Nitrite Negative Urine Bilirubin Negative Urine Urobilinogen Normal Ur Leukocyte Esterase 500 H Urine RBC 0 SEEN Urine WBC 10-25 SEEN Ur Squamous Epith Cells 0-5 SEEN Amorphous Sediment 1+ PHOS Urine Bacteria 0 SEEN Urine Mucus 0 SEEN EKG Initial EKG: Attestation: I personally reviewed and interpreted this EKG as follows: Interpretation: Sinus Bradycardia (Sinus bradycardia 59 bpm. No acute ischemia.) Treatment and Re-Evaluation Narrative: Patient's systolic blood pressure has been 130s to 160s while here. CBC and chemistry studies are unremarkable. Creatinine is 1.45 which is consistent with her prior values. Urinalysis shows 10-25 white cells with 0 bacteria and no nitrites. I discussed with the patient the importance of taking her blood pressure medication on a regular basis. The fact that her blood pressure was good when she checked it this morning does not mean that she can skip her blood pressure medications, as this will cause her blood pressure to rise quickly and make her feel ill. She voices understanding and agreement. She will be discharged home with family. Discharge Plan Triage Chief Complaint: Hypertension Other Complaint: Shortness of Breath ED Provider: Taniya Toro Dx/Rx/DC Orders Clinical Impression: Hypertension Instructions: ED Hypertension, Established Prescriptions: No Action clonazepam 0.5 mg tablet 0.5 mg PO DAILY Hold Instructions: Resume on 07/13/22. Please hold till discussing with your primary care physician ursodiol 300 mg capsule 300 mg PO DAILY zolpidem 10 mg tablet 10 mg PO DAILY atorvastatin 40 mg Tablet 40 mg PO QHS 30 Days Qty: 30 0RF amiodarone 200 mg Tablet 100 mg PO DAILY 30 Days Qty: 15 0RF lisinopril 20 mg Tablet 20 mg PO BID 30 Days Qty: 60 0RF carvedilol 3.125 mg Tablet 3.125 mg PO BID 30 Days Qty: 60 0RF furosemide [Lasix] 40 mg Tablet 20 mg PO DAILY 30 Days Qty: 15 0RF clopidogrel [Plavix] 75 mg Tablet 75 mg PO DAILY 30 Days Qty: 0 0RF aspirin 81 mg Tablet,Chewable 81 mg PO DAILY 30 Days Qty: 0 0RF clonidine HCl 0.1 mg Tablet 0.1 mg PO PRN PRN (Reason: Hypertension) Primary Care Provider: Thomas Pastor Referrals: Thomas Pastor DO [Primary Care Provider] - 1 Week Activity Restrictions/Additional Instructions: As discussed, please take your blood pressure medications as prescribed. Keep a log of your blood pressures to discuss with your doctor at your next visit. Disposition Disposition: Home, Self Care
[2022-07-12 18:01] LABS: Absolute Lymphocyte Count 1.45 X10^3/uL (0.83-4.51); Absolute Neutrophil Count 5.4 X10^3/uL (2.0-7.7); Basophil# 0.02 X10^3/uL; Basophil% 0.3 % (0-1); Eosinophil# 0.16 X10^3/uL; Eosinophils% 2.1 % (0-5); Hematocrit 45.9 % (37-47); Hemoglobin 14.8 g/dL (12.0-15.0); Lymphocyte # 1.45 X10^3/ul (0.83-4.51); Lymphocyte % 18.7 % (19-41); Mean Corp Hgb Conc 32.2 g/dL (32-36); Mean Corpuscular Hgb 27.7 pg (27.0-32.0); Mean Platelet Vol. 11.5 fl (6.2-12.0); Monocyte# 0.71 X10^3/uL; Monocyte% 9.2 % (0-10); NRBC Flagged by Analyzer 0 % (0-5); Neutrophil # 5.37 X10^3/uL (2.7-7.7); Neutrophil % 69.3 % (47-70); Platelet Count 172 K/mm3 (150-450); RBC Distribution Width CV 13.9 % (11.6-14.6); RBC Distribution Width SD 42.7 fl (35.1-43.9); Red Blood Count 5.34 M/mm3 (4.2-5.4); White Blood Count 7.7 K/mm3 (4.4-11.0)
[2022-07-12 18:12] LABS: Bacteria 0 SEEN /hpf (None Seen); Mucous, Urine 0 SEEN /hpf (<or=2+); Red Blood Cells-Urine 0 SEEN /hpf (0-5)
[2022-07-12 18:16] LABS: Color, Urine Yellow (Yellow); Glucose, Dipstick Normal (Normal); Ketone-Dipstick Negative (Negative); Leukocyte Esterase-Dipstick 500 /ul (Negative); Nitrite-Dipstick Negative (Negative); Occult Blood-Urine Negative /ul (Negative); Protein-Dipstick Negative (Negative); Urine Bilirubin Dipstick Negative (Negative); Urine Clarity Sl. Cloudy (Clear); Urine Urobilinogen Normal (Normal)
[2022-07-12 18:33] LABS: Anion Gap 7 (5-15); BUN 27 mg/dL (7-18); BUN/Creat Ratio 18.6 RATIO (10-20); Calcium,Total 8.7 mg/dL (8.5-10.1); Chloride 104 mmol/L (98-107); Creatinine, Serum 1.45 mg/dL (0.55-1.02); EST Glomerular Filtration Rate 37 mL/min (>60); Est Glom Filt Rate - Afr Amer 45 mL/min (>60); Estimated Creatinine Clearance 36.25 ml/min; Glucose 107 mg/dL (74-106); Potassium 4.1 mmol/L (3.5-5.1); Sodium Level 136 mmol/L (136-145)
[2022-07-12 18:53] LABS: Squamous Epithelial Cells - UA 0-5 SEEN /hpf (5-10); White Blood Cells 10-25 SEEN /hpf (0-5)
[2022-07-12 18:54] LABS: Amorphous Sediment 1+ PHOS
[2022-07-12 19:45] VITALS: BP 163/72; PULSE 55; RESP 16; O2SAT 98
== END 2022-07-12 19:51 | disposition home or self-care (01) ==
PROVIDERS: Emergency Provider Emergency Medicine; PCP Family Medicine; Visit Provider Emergency Medicine
DX: I11.0 Hypertensive heart disease with heart failure (principal); I50.9 Heart failure, unspecified; I25.10 Atherosclerotic heart disease of native coronary artery without angina pectoris; E78.2 Mixed hyperlipidemia; R42 Dizziness and giddiness
CPT/HCPCS: 36415; 80048; 81001; 85025; 93005; 99285

== ENCOUNTER 2023-09-23 18:37 | Emergency (ER) | payer SELFPAY ==
[2023-09-23] VITALS (7 sets, daily range): BP systolic 133–193; BP diastolic 71–122; PULSE 59–90; RESP 11–24; TEMP 36.1–36.8; O2SAT 92–99; BMI 27.6
[2023-09-23 19:00] LABS: Absolute Lymphocyte Count 1.53 X10^3/uL (0.83-4.51); Absolute Neutrophil Count 6.4 X10^3/uL (2.0-7.7); Basophil# 0.03 X10^3/uL; Basophil% 0.3 % (0-1); Eosinophils% 1.1 % (0-5); Hematocrit 50.4 % (37-47); Hemoglobin 16.1 g/dL (12.0-15.0); Lymphocyte # 1.53 X10^3/ul (0.83-4.51); Lymphocyte % 17.4 % (19-41); Mean Corp Hgb Conc 31.9 g/dL (32-36); Mean Corpuscular Hgb 27.1 pg (27.0-32.0); Mean Corpuscular Volume 84.8 fL (81-99); Mean Platelet Vol. 10.7 fl (6.2-12.0); Monocyte# 0.66 X10^3/uL; Monocyte% 7.5 % (0-10); NRBC Flagged by Analyzer 0 % (0-5); Neutrophil # 6.43 X10^3/uL (2.7-7.7); Neutrophil % 73.4 % (47-70); Platelet Count 204 K/mm3 (150-450); RBC Distribution Width CV 14.3 % (11.6-14.6); RBC Distribution Width SD 43.8 fl (35.1-43.9); Red Blood Count 5.94 M/mm3 (4.2-5.4); White Blood Count 8.8 K/mm3 (4.4-11.0)
[2023-09-23] MEDS: Ondansetron 4 MG/2 ML Vial IV (19:02)
[2023-09-23] MEDS: Morphine 4 MG/ML Syringe IV (19:02)
--- NOTE | 2023-09-23 19:02 | EX.ED.DYSGE1 ---
HPI History of Present Illness Chief Complaint: Abd Pain Detail of Chief Complaint: Left upper quadrant pain with pleuritic component Informant: patient and family Onset/Context/Timing Onset: Hours (1400) Context: Sudden Onset Timing: Continuous and Waxes and wanes Quality: Pain Location: Left upper quadrant Current Severity: Mild Maximum Severity: Severe Worsened by: Deep breathing Relieved by: Nothing Associated Symptoms Associated Symptoms: No other symptoms Narrative Narrative: Patient is 78-year-old woman status post cholecystectomy 2020 at [facility]. She was initially evaluated at [facility]. Because she had an obstruction she required transfer because it was determined that she was too complex of a case. Patient presents today with acute onset of left upper quadrant abdominal pain that does not radiate and has no associated symptoms. It is worse with deep breathing. There is no history of PE or DVT. She denies history of cancer. She denies leg pain, swelling discoloration. Patient was sitting when the pain began. At noon she had a small piece of meat for lunch. Patient denies fever, chills night sweats. Patient denies rhinorrhea, congestion, postnasal drainage sore throat. Patient [place] shortness of breath or cough. Patient denies chest pain. Patient denies flank pain. Denies dysuria, frequency, urgency or hematuria. There is no history of renal or ureterolithiasis per patient or prior records. Prior similar symptoms: No Recent Illness/Hospitalization: No [facility] Medical History Abnormal echocardiogram Abnormal stress test Atherosclerotic heart disease of [place] coronary artery without angina pectoris CAD (coronary artery disease) Chest pain CHF (congestive heart failure) Coronary artery disease History of ST elevation myocardial infarction (STEMI) HLD (hyperlipidemia) Hypertension Mixed hyperlipidemia Myocardial infarction Presence of stent in coronary artery (~08/17/17) Home Medications carvedilol 6.25 mg tablet 6.25 mg PO BID 30 days #60 tabs 08/08/22 [Rx Last Taken Unknown] spironolactone 25 mg tablet 25 mg PO DAILY #30 tabs 08/08/22 [Rx Last Taken Unknown] aspirin 81 mg chewable tablet ( Robin Aspirin) 81 mg PO DAILY 11/01/22 [History Last Taken Unknown] clonazepam 0.5 mg tablet 0.5 mg PO BID 11/01/22 [History Last Taken Unknown] clonidine HCl 0.1 mg tablet 0.1 mg PO ONCE PRN 05/04/23 [History Last Taken Unknown] lisinopril 20 mg tablet 20 mg PO BID PRN 05/04/23 [History Last Taken Unknown] zolpidem 12.5 mg tablet,extended release,multiphase 12.5 mg PO QHS 05/04/23 [History Last Taken Unknown] furosemide 40 mg tablet (Lasix) 20 mg PO PRN 09/23/23 [History Last Taken Unknown] hydrocodone-acetaminophen 5-325mg 5mg-325mg 1 tab PO Q6H PRN PRN Pain 3 days #10 TABLETS 09/23/23 [Rx Last Taken Unknown] Allergy/AdvReac Type Severity Reaction Status Date / Time No Known Allergies Allergy Verified 05/04/23 14:41 Family History Mother CVA (cerebral vascular accident) Heart disease Myocardial infarction Father CVA (cerebral vascular accident) Heart disease Myocardial infarction Surgical History History of Hx of coronary angioplasty Presence of coronary angioplasty implant and graft (~08/17/17) S/P PTCA (percutaneous transluminal coronary angioplasty) Social History household members: family Smoking Status: Never smoker alcohol intake: never substance use type: does not use ROS ROS ED Constitutional Constitutional ED: Denies chills, fever(s), subjective, sweats or weight loss Eyes Eyes: Denies blurry vision, change in vision or diplopia ENT ENT ED: Denies ear pain, rhinorrhea or sore throat Cardiovascular Cardiovascular: Denies chest pain, orthopnea, palpitations, paroxysmal nocturnal dyspnea or racing heartbeat Respiratory/Chest Respiratory/Chest: Denies cough, dyspnea, dyspnea on exertion, orthopnea or paroxysmal nocturnal dyspnea Gastrointestinal Gastrointestinal: Reports abdominal pain; Denies constipation, diarrhea, melena, nausea or vomiting Genitourinary Genitourinary ED: Denies dysuria, hematuria or urinary frequency Musculoskeletal Musculoskeletal: Denies arthralgias, back pain, myalgias or neck pain Integumentary Denies abscess or rash Endocrine Endocrinology: Denies cold intolerance or heat intolerance Hematologic/Lymphatic Hematologic/Lymphatic: Reports systems reviewed and no addt'l complaints, except as documented EXAM Physical Exam Const Vital Signs: 09/23/23 18:38 09/23/23 18:46 09/23/23 19:01 Temperature 96.9 F L Temperature Source Temporal Pulse Rate 89 90 83 Respiratory Rate 18 18 23 H Respiratory Effort Respiratory Depth Respiratory Pattern Blood Pressure 189/102 H 193/122 H 180/96 H Blood Pressure Mean 131 145 124 Pulse Ox 98 99 95 Oxygen Delivery Method Room Air Room Air Room Air 09/23/23 19:07 09/23/23 19:13 09/23/23 20:01 Temperature 98.3 F Temperature Source Temporal Pulse Rate 82 69 Respiratory Rate 24 H 16 Respiratory Effort Normal Respiratory Depth Shallow Respiratory Pattern Normal Blood Pressure 169/87 H 133/71 H Blood Pressure Mean 114 91 Pulse Ox 92 96 Oxygen Delivery Method Room Air Room Air Room Air 09/23/23 22:00 Temperature Temperature Source Pulse Rate 59 L Respiratory Rate 11 L Respiratory Effort Respiratory Depth Respiratory Pattern Blood Pressure 165/75 H Blood Pressure Mean 105 Pulse Ox 97 Oxygen Delivery Method Room Air Positive well nourished and well developed General Appearance ED: well developed and pallor; Negative for NAD HEENT Reports moist mucous membranes HEENT Narrative: Head is atraumatic and normocephalic. Ears normal. Nares patent. Posterior pharynx unremarkable. Eyes PERRL and EOMs intact bilaterally General Eye ED: Negative for pale conjunctiva or scleral icterus Neck no lymphadenopathy, supple and no JVD Chest Wall inspection of chest normal and palpation of chest normal Resp normal respiratory effort and clear to auscultation bilaterally Cardio regular rate, regular rhythm, S1 normal heart sound, S2 normal heart sound and no murmurs GI normal to inspection, nondistended, normoactive bowel sounds, non-distended and no masses; Negative for non-tender or hepatosplenomegaly Palpation: tender LUQ Back/Spine no CVA tenderness Extremity normal to inspection General Extremety ED: Negative for edema or tenderness General Extremity: Negative for edema Neuro oriented x3, CN's II-XII intact bilaterally and no sensory deficits noted Sensorium / Orientation: alert Psych mental status grossly normal Skin no rashes or lesions noted, no wounds and skin turgor normal General Skin Exam: pallor; Negative for elasticity normal or jaundice MDM MDM MDM Narrative Medical decision making narrative: Differential diagnosis would include pancreatitis, possible choledocholithiasis pancreatitis, pulmonary embolus. Abdominal pain of unknown etiology. Since patient reports pleuritic component D-dimer was obtained. Because she has extensive cardiac history EKG was obtained to evaluate for acute ischemia. UA was obtained to rule out urinary tract infection and if there is significant hematuria would need to consider renal/ureteral lithiasis. Patient was medicated with morphine for her pain. Patient's blood pressure is elevated. She states her pressure is well-controlled with lisinopril. She takes the medicine as needed based on her blood pressure readings. She could not recall what her blood pressure reading was this morning. History & Record Review Additional record(s) reviewed:: Prior outpatient record (Records from [place] and [facility] were reviewed. Patient did have cholecystectomy in 2020 at [facility] even though initially she states her gallbladder is not out.) and Prior ED visit Lab Data Attestation: I reviewed the patient's lab results. Lab results narrative: CBC reveals elevated H&H of 16 1 and 50.4. Comprehensive metabolic panel reveals a potassium of 6.5. BUN and creatinine are 21 and 1.50. Estimated GFR 36. Transaminases are normal. BUN and creatinine are at patient's baseline. Of note patient's specimen was moderately hemolyzed and most likely cause for the elevated potassium. There are no EKG changes suggestive of hyperkalemia. Labs: Laboratory Results - last 24 hr 09/23/23 09/23/23 18:50 19:59 WBC 8.8 RBC 5.94 H Hgb 16.1 H Hct 50.4 H MCV 84.8 MCH 27.1 MCHC 31.9 L RDW Std Deviation 43.8 RDW Coeff of Beena 14.3 Plt Count 204 MPV 10.7 Immature Gran % (Auto) 0.300 Neut % (Auto) 73.4 H Lymph % (Auto) 17.4 L [place] % (Auto) 7.5 Eos % (Auto) 1.1 Baso % (Auto) 0.3 Absolute Neuts (auto) 6.4 Absolute Lymphs (auto) 1.53 Nucleated RBC % 0 D-Dimer Quant (PE/DVT) 0.78 H* Sodium Cancelled 133 L Potassium Cancelled 6.5 H* Chloride Cancelled 104 Carbon Dioxide Cancelled 28.0 Anion Gap Cancelled 1 L BUN Cancelled 21 H Creatinine Cancelled 1.50 H Estim Creat Clear Calc Cancelled 38.33 Est GFR (MDRD) Af Amer Cancelled 43 L Est GFR (MDRD) Non-Af Cancelled 36 L BUN/Creatinine Ratio Cancelled 14.0 Glucose Cancelled 108 H Calcium Cancelled 8.5 Total Bilirubin Cancelled 0.40 Direct Bilirubin Cancelled 0.18 AST Cancelled 22 ALT Cancelled 20 Alkaline Phosphatase Cancelled 87 Total Protein Cancelled 6.6 Albumin Cancelled 3.7 Globulin Cancelled 2.9 Lipase Cancelled 51 Radiography Diagnostic Testing: Clinical Impression(s) from Imaging Studies Chest CTA 09/23/23 21:05 IMPRESSION: 1. No CT evidence of pulmonary embolism. 2. Cardiomegaly. 3. Small bilateral pleural effusions. Electronically Signed: Dhiraj Rodríguez MD at 22:17 EDT , EKG Initial EKG: Attestation: I personally reviewed and interpreted this EKG as follows: Interpretation: Sinus Rhythm (Rate is 78. FL interval 260 ms. QRS duration 92 ms. QT duration 400 ms. [place] is to the left. There is decreased anterior force noted. There is also LVH by voltage criteria.) Treatment and Re-Evaluation :: Since lipase and liver enzymes are normal and patient complaining of pleuritic pain with elevated D-dimer CTA of the chest was ordered. Discharge Plan Triage Chief Complaint: Abd Pain ED Provider: Jordi Chatman Dx/Rx/DC Orders Clinical Impression: Abdominal pain, acute, left upper quadrant, Atherosclerotic heart disease of [place] coronary artery without angina pectoris, Mixed hyperlipidemia, Anterior pleuritic pain, Pleural effusion, bilateral, Blood pressure elevated without history of HTN Instructions: ED Abdominal Pain Unkn Cause Fem, ED Pleural Effusion, ED Pleurisy Prescriptions: New hydrocodone-acetaminophen [hydrocodone-acetaminophen] 5-325 mg tablet 1 tab PO Q6H PRN PRN (Reason: Pain) 3 Days Qty: 10 0RF No Action carvedilol 6.25 mg tablet 6.25 mg PO BID 30 Days Qty: 60 12RF spironolactone 25 mg tablet 25 mg PO DAILY Qty: 30 10RF aspirin [[facility] Robin Aspirin] 81 mg tablet,chewable 81 mg PO DAILY clonazepam 0.5 mg tablet 0.5 mg PO BID lisinopril 20 mg tablet 20 mg PO BID PRN clonidine HCl 0.1 mg tablet 0.1 mg PO ONCE PRN zolpidem 12.5 mg tablet,ext release multiphase 12.5 mg PO QHS furosemide [Lasix] 40 mg tablet 20 mg PO PRN Primary Care Provider: Thomas Pastor Referrals: Thomas Pastor DO [Primary Care Provider] - 3-5 Days Activity Restrictions/Additional Instructions: Increase your Lasix dose to 2 tablets a day for the next 4 days Take medication for pain as prescribed Disposition Disposition: Home, Self Care
[2023-09-23 19:12] LABS: D-Dimer Quantitative (DVT/PE) 0.78 FEU/ug/m (0.27-0.49)
--- NOTE | 2023-09-23 19:52 | ED.RN ---
Attempted to call s/o Aldo Peter upon the patients request. No answer at this time, I left a voicemail for a call back. Phone number utilized was .
[2023-09-23 20:28] LABS: AST(SGOT) 22 U/L (15-37); Alanine Aminotransfer ALT/SGPT 20 U/L (13-56); Albumin, Serum 3.7 g/dL (3.2-5.0); Alkaline Phosphatase 87 U/L (45-117); Anion Gap 1 (5-15); BUN 21 mg/dL (7-18); Bilirubin, Direct 0.18 mg/dL (0.00-0.30); Calcium,Total 8.5 mg/dL (8.5-10.1); Chloride 104 mmol/L (98-107); EST Glomerular Filtration Rate 36 mL/min (>60); Est Glom Filt Rate - Afr Amer 43 mL/min (>60); Estimated Creatinine Clearance 38.33 ml/min; Globulin 2.9 g/dL (2.2-4.2); Glucose 108 mg/dL (74-106); Lipase 51 U/L (13-75); Potassium 6.5 mmol/L (3.5-5.1); Protein, Total 6.6 g/dL (6.4-8.2); Sodium Level 133 mmol/L (136-145)
--- NOTE | 2023-09-23 21:05 | CT_ITS ---
STUDY: CTA CHEST REASON FOR EXAM: Female, 78 years old. Pleuritic chest pain, elevated D-dimer RADIATION DOSAGE (If Supplied By Facility): CTDIvol = ( 16.50 ) mGy, DLP = ( 364.16 ) mGycm TECHNIQUE: The examination was performed with the intravenous administration of IV 100mL Isovue-370. Post-processing of the angiographic images was performed, with multiplanar reformation and 3D reconstruction. Individualized dose optimization techniques were used for this CT. COMPARISON: None. FINDINGS: Normal enhancement of the main pulmonary artery and right and left pulmonary arteries. Normal enhancement of the bilateral peripheral pulmonary arteries. There is no demonstrated pulmonary embolism. Normal thoracic aorta and visualized great vessels. There is no demonstrated aortic dissection. There is cardiomegaly. Normal mediastinum. Normal hilar regions. Normal visualized trachea and bronchi. The lungs are well expanded. Normal pulmonary parenchyma. Small bilateral pleural effusions. Normal chest wall structures. Normal osseous structures. Normal visualized upper abdomen. CT/CTA Chest W/WO Contrast IMPRESSION: 1. No CT evidence of pulmonary embolism. 2. Cardiomegaly. 3. Small bilateral pleural effusions. Electronically Signed: Dhiraj Rodríguez MD at 22:17 EDT ,
== END 2023-09-23 22:39 | disposition home or self-care (01) ==
PROVIDERS: Emergency Provider Emergency Medicine; PCP Family Medicine; Visit Provider Emergency Medicine
DX: R10.12 Left upper quadrant pain (principal); I50.9 Heart failure, unspecified; I25.10 Atherosclerotic heart disease of native coronary artery without angina pectoris; E78.2 Mixed hyperlipidemia; R07.81 Pleurodynia; J90 Pleural effusion, not elsewhere classified; I25.2 Old myocardial infarction; R03.0 Elevated blood-pressure reading, without diagnosis of hypertension; Z95.5 Presence of coronary angioplasty implant and graft; Z79.82 Long term (current) use of aspirin
CPT/HCPCS: 71275; 80048; 80076; 83690; 85025; 85379; 93005; 96374; 96375; 99284; Q9967; A4216; J2405

== ENCOUNTER 2023-11-03 13:39 | Emergency (ER) | payer OTHER, SELFPAY ==
[2023-11-03] VITALS (10 sets, daily range): BP systolic 111–177; BP diastolic 48–91; PULSE 55–90; RESP 15–26; TEMP 36.2–36.8; O2SAT 94–100; BMI 25.9
--- NOTE | 2023-11-03 13:42 | CT_ITS ---
STUDY: CT HEAD STROKE PROTOCOL W/O CONTRAST INJECTION REASON FOR EXAM: Female, 78 years old. Neuro deficit, acute, stroke suspected RADIATION DOSAGE (If Supplied By Facility): CTDIvol = ( 47.06 ) mGy, DLP = ( 907.97 ) mGycm TECHNIQUE: Transaxial CT imaging of the brain was performed without administration of intravenous contrast material. Individualized dose optimization techniques were used for this CT. COMPARISON: Comparison is made with prior study July 05, 2022. FINDINGS: Scalp hematoma overlying the posterior right occipital bone. Normal calvarium. There is mild cerebral atrophy with widening of the extra-axial spaces and ventricular dilatation. There are areas of decreased attenuation within the white matter tracts of the supratentorial brain, consistent with microvascular disease changes. 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 Stable tiny lacunar infarct in the right thalamus. Normal brainstem. Normal cerebellum. There is evidence of hemorrhagic contusion in the anterior left frontal lobe as well as in the posterior medial aspect of the left parietal occipital lobe. Tiny amount of blood in the posterior aspect of the occipital horn of the right lateral ventricle. There are no findings of an acute ischemic infarction. Atherosclerotic calcification of the cavernous portions of the internal carotid arteries bilaterally. There is a 1 cm polyp or retention cyst in the medial wall of the left maxillary sinus as well as mucosal thickening along the left maxillary sinus. Because of thickening of the ethmoid sinuses. ASPECT score: 8 CT/STROKE Brain/Head without Cont IMPRESSION: Chronic involutional changes of the brain. Hemorrhagic contusion involving the left frontal lobe as well as the posterior medial left parietal occipital lobes. N.B. : The above Results were Read Back by Osvaldo Calle MD to Levy Hylton and understanding confirmed on 11/03/2023 14:02:15 (ET). Electronically Signed: Osvaldo Calle MD at 14:05 EDT ,
--- NOTE | 2023-11-03 13:42 | EKG12_ITS ---
Test Reason : NEURO Blood Pressure : / mmHG Vent. Rate : 070 BPM Atrial Rate : 070 BPM P-R Int : 146 ms QRS Dur : 088 ms QT Int : 384 ms P-R-T Axes : 070 -43 096 degrees QTc Int : 414 ms Normal sinus rhythm Biatrial enlargement Left axis deviation Pulmonary disease pattern Minimal voltage criteria for LVH, may be normal variant ( Yung product ) Abnormal QRS-T angle, consider primary T wave abnormality Abnormal ECG Confirmed by LUISA VARELA, HILARY ([id number]), video effects editor PILAR STANLEY ([id number]) on 11/06/2023 9:36:21 AM Referred By: NANI Confirmed By:HILARY MORAN MD
--- NOTE | 2023-11-03 13:43 | ED.VIS.STROK ---
HPI History of Present Illness Chief Complaint: Stroke Alert Informant: patient and family (mult) Narrative Narrative: 78-year-old Adventist female brought in by family because of numbness on the left arm and leg. Stroke alert was called in triage she was sent to CT prior to my evaluation. Family member last saw her before she left the house this morning at 0730 when the patient was awake and up and at baseline. In CT 1340 early afternoon. Family states patient has a history of a heart attack she is on aspirin and some other medications that she does not recall, she states the medicines from when she was here 6 weeks ago are unchanged, which include baby aspirin and no other antiplatelet or anticoagulant medications. [facility] Medical History Abnormal echocardiogram Abnormal stress test Atherosclerotic heart disease of [place] coronary artery without angina pectoris CAD (coronary artery disease) Chest pain CHF (congestive heart failure) Coronary artery disease History of ST elevation myocardial infarction (STEMI) HLD (hyperlipidemia) Hypertension Mixed hyperlipidemia Myocardial infarction Presence of stent in coronary artery (~08/17/17) Home Medications carvedilol 6.25 mg tablet 6.25 mg PO BID 30 days #60 tabs 08/08/22 [Rx Last Taken Unknown] spironolactone 25 mg tablet 25 mg PO DAILY #30 tabs 08/08/22 [Rx Last Taken Unknown] aspirin 81 mg chewable tablet (St Robin Aspirin) 81 mg PO DAILY 11/01/22 [History Last Taken Unknown] clonazepam 0.5 mg tablet 0.5 mg PO BID PRN anxiety 11/01/22 [History Last Taken Unknown] clonidine HCl 0.1 mg tablet 0.1 mg PO ONCE PRN hypertensive emergency 05/04/23 [History Last Taken Unknown] lisinopril 20 mg tablet 20 mg PO BID PRN hypertension 05/04/23 [History Last Taken Unknown] furosemide 40 mg tablet (Lasix) 20 mg PO PRN 09/23/23 [History Last Taken Unknown] acetaminophen 325 mg tablet (Tylenol) 325 mg PO Q6H PRN fever 11/03/23 [History Last Taken Unknown] Allergy/AdvReac Type Severity Reaction Status Date / Time No Known Allergies Allergy Verified 05/04/23 14:41 Family History Mother CVA (cerebral vascular accident) Heart disease Myocardial infarction Father CVA (cerebral vascular accident) Heart disease Myocardial infarction Surgical History History of Hx of coronary angioplasty Presence of coronary angioplasty implant and graft (~08/17/17) S/P PTCA (percutaneous transluminal coronary angioplasty) Social History household members: family Smoking Status: Never smoker alcohol intake: never substance use type: does not use ROS ROS ED Constitutional Constitutional ED: Denies chills or fever(s) Eyes Eyes: Denies change in vision or diplopia ENT ENT ED: Denies rhinorrhea or sore throat Cardiovascular Cardiovascular: Denies chest pain or palpitations Respiratory/Chest Respiratory/Chest: Denies cough or dyspnea Gastrointestinal Gastrointestinal: Denies abdominal pain, diarrhea, nausea or vomiting Genitourinary Genitourinary ED: Denies dysuria or hematuria Musculoskeletal Musculoskeletal: Denies back pain or neck pain Integumentary Denies abscess or rash Neurologic Neurologic: Reports headache(s), paresthesias LUE and LLE and other Details: amnestic to this AM ; Denies weakness Psychiatric Psychiatric: Denies suicidal thoughts EXAM Physical Exam Const Vital Signs: 11/03/23 13:48 11/03/23 13:42 11/03/23 13:52 Temperature 97.2 F L Temperature Source Oral Pulse Rate 90 Respiratory Rate 26 H Blood Pressure 177/91 H Blood Pressure Mean 119 Pulse Ox 99 94 100 Oxygen Delivery Method Room Air Room Air Room Air 11/03/23 14:05 11/03/23 14:03 11/03/23 13:50 Temperature 98.2 F Temperature Source Oral Pulse Rate 69 60 Respiratory Rate 15 18 Blood Pressure 137/62 H 177/61 H Blood Pressure Mean 87 99 Pulse Ox 100 100 Oxygen Delivery Method Room Air Room Air 11/03/23 14:15 Temperature Temperature Source Pulse Rate 73 Respiratory Rate 22 H Blood Pressure 111/48 L Blood Pressure Mean 69 Pulse Ox 96 Oxygen Delivery Method Room Air Positive well nourished and well developed General Appearance ED: well developed and NAD HEENT Reports TM's clear and moist mucous membranes HEENT Narrative: Tenderness and acute macerated laceration to the right occiput. There is minor hematoma there but no crepitance or depression. No evidence of facial trauma. Negative Carnes sign no raccoon eyes, no CSF otorhinorrhea. Tympanic Membrane ED: Yes TM's clear Eyes PERRL and EOMs intact bilaterally Neck full ROM and supple General: Negative for tenderness Chest Wall inspection of chest normal and palpation of chest normal Resp normal respiratory effort and clear to auscultation bilaterally Cardio regular rate and regular rhythm GI non-tender and non-distended Auscultation: normoactive bowel sounds Palpation: soft Back/Spine General Back: other FROM Cervical Spine: Negative for cervical spine tenderness Thoracic Spine / Upper Back: Negative for thoracic spinal tenderness Lumbar Spine / Lower Back: Negative for lumbar spinal tenderness Extremity normal to inspection General Extremety ED: Negative for edema, pulses abnormal or tenderness General Extremity: Negative for edema or pulses abnormal Neuro oriented x3 and CN's II-XII intact bilaterally Neuro Narrative: Subjective decrease sensation left upper and lower extremities, but not in the face [place] Coma Scale: document GCS findings Spontaneous Obeys Commands Oriented 15 Sensorium / Orientation: awake and alert Motor Exam: strength 5/5 throughout Psych mental status grossly normal Skin no rashes or lesions noted Skin Narrative: 2.5 cm Y-shaped laceration right posterior scalp NIHSS NIHSS Initial: 1a Level of Consciousness: 0 1b LOC Questions (Score 2 if aphasic/stupor): 0 1c LOC Commands (Only score 1st attempt): 0 2 Best Gaze (If aphasic, use reflexive mvmts.): 0 3 Visual: 0 4 Facial Palsy: 0 5 Motor Arm Right (UN = amputation/fusion): 0 5 Motor Arm Left: 0 6 Motor Leg Right: 0 6 Motor Leg Left: 0 7 Limb ataxia (Only + if out of proportion): 0 8 Sensory (Aphasia/stupor=0 or 1, coma=2): 1 9 Best Language: 0 10 Dysarthria (mute, coma=2, intubated=UN): 0 11 Extinction and Inattention (only scored if +): 0 Total Score: 1 MDM MDM MDM Narrative Medical decision making narrative: Stroke alert called from triage, I saw the patient in the room as she returned from CT. I reviewed the images as well as the radiology report, I spoke with the radiologist, and agree with his report. Basically, several areas of intraparenchymal hemorrhage. There is no midline shift or intraventricular bleed. Her GCS is 15 she is keenly alert, she does not have any nausea and I do not think she needs to be intubated at this time, she is protecting her own airway and doing so very well. The laceration was repaired. I spoke with family regarding this and the need for transfer to a trauma center. They request [facility] initially because the patient has been there before. Spoke with trauma surgeon Dr. Pelletier who accepts the patient in transfer. We will seek air transport first. Patient's blood pressure was high 177/91 which we treated with labetalol, on repeat down to 111/48 and clinically doing well with that pressure. Tetanus and Ancef also ordered. Spoke with patient and family. All 3 of them are in agreement that they are refusing air transportation. The 3 of them understand that this is a life-threatening injury, and being on the road and an ambulance is not an ideal situation if she worsens due to her intracranial bleeding. They understand the risks and refuse anyhow, stating that it is due to their moravian beliefs. History & Record Review Discussion w/independent historian: Family Lab Data Attestation: I reviewed the patient's lab results. Labs: Laboratory Results - last 24 hr 11/03/23 11/03/23 13:50 13:52 WBC 9.9 RBC 6.11 H Hgb 16.8 H Hct 51.8 H MCV 84.8 MCH 27.5 MCHC 32.4 RDW Std Deviation 43.8 RDW Coeff of Beena 14.4 Plt Count 236 MPV 10.5 Immature Gran % (Auto) 0.300 Neut % (Auto) 80.1 H Lymph % (Auto) 11.8 L Churchill % (Auto) 7.3 Eos % (Auto) 0.3 Baso % (Auto) 0.2 Absolute Neuts (auto) 7.9 H Absolute Lymphs (auto) 1.17 Nucleated RBC % 0 PT 13.0 INR 1.0 APTT 25.1 POC Glucose 133 H Radiography Diagnostic Testing: Clinical Impression(s) from Imaging Studies Brain CT 11/03/23 13:42 IMPRESSION: Chronic involutional changes of the brain. Hemorrhagic contusion involving the left frontal lobe as well as the posterior medial left parietal occipital lobes. N.B. : The above Results were Read Back by Osvaldo Calle MD to Levy Hylton and understanding confirmed on 11/03/2023 14:02:15 (ET). Electronically Signed: Osvaldo Calle MD at 14:05 EDT , ADDENDUM: 11/03/23 1412 IMPRESSION: Chronic involutional changes of the brain. Hemorrhagic contusion involving the left frontal lobe as well as the posterior medial left parietal occipital lobes. N.B. : The above Results were Read Back by Osvaldo Calle MD to Levy Hylton and understanding confirmed on 11/03/2023 14:02:15 (ET). Electronically Signed: Osvaldo Calle MD at 14:05 EDT , Rhythm Strip Rhythm Strip: Sinus Rhythm Rate: 70 Ectopy: None Management Discussion w/another healthcare provider: Livestock Commission Agent (Dr. Pelletier trauma [facility]) and Radiologist Procedures Lacerations R post scalp: Length: 2.5 cm Depth: Sub Q Shape: Stellate Prep: Sterile Conditions and Chlorhexadine Laceration repair: Irrigated, Lidocaine with epi (1%, 3cc), Local and Skin sutures (pierre) Irrigated (ml): 60 Number of Sutures/Pierre: 4 Critical Care Time Critical Care Time: Yes Critical care time (excluding procedures): 30-74 minutes (36 min, not including procedure time), Including time spent:, Discussing w/Patient &/or Family/Assistant Spa Director, Discussing w/Consultants, Arranging Admission or Transfer and Performing Direct Patient Care at Bedside Discharge Plan Triage Chief Complaint: Stroke Alert ED Provider: Levy Hylton Dx/Rx/DC Orders Clinical Impression: Traumatic cerebral intraparenchymal hemorrhage, Paresthesia of left arm and leg, Occipital scalp laceration Prescriptions: No Action carvedilol 6.25 mg tablet 6.25 mg PO BID 30 Days Qty: 60 12RF spironolactone 25 mg tablet 25 mg PO DAILY Qty: 30 10RF aspirin [St Robin Aspirin] 81 mg tablet,chewable 81 mg PO DAILY clonazepam 0.5 mg tablet 0.5 mg PO BID PRN (Reason: anxiety) Patient Comments: takes it mostly for sleeping lisinopril 20 mg tablet 20 mg PO BID PRN (Reason: hypertension) clonidine HCl 0.1 mg tablet 0.1 mg PO ONCE PRN (Reason: hypertensive emergency) acetaminophen [Tylenol] 325 mg tablet 325 mg PO Q6H PRN (Reason: fever) furosemide [Lasix] 40 mg tablet 20 mg PO PRN Primary Care Provider: Thomas Pastor Referrals: Thomas Pastor DO [Primary Care Provider] - Disposition Disposition: Acute Care Hospital Discharge Location: [facility]
[2023-11-03] MEDS: Labetalol (Prefilled) 20 MG/4 ML IV (13:55)
[2023-11-03 14:03] LABS: Absolute Lymphocyte Count 1.17 X10^3/uL (0.83-4.51); Absolute Neutrophil Count 7.9 X10^3/uL (2.0-7.7); Basophil# 0.02 X10^3/uL; Basophil% 0.2 % (0-1); Eosinophil# 0.03 X10^3/uL; Eosinophils% 0.3 % (0-5); Hematocrit 51.8 % (37-47); Hemoglobin 16.8 g/dL (12.0-15.0); Lymphocyte # 1.17 X10^3/ul (0.83-4.51); Lymphocyte % 11.8 % (19-41); Mean Corp Hgb Conc 32.4 g/dL (32-36); Mean Corpuscular Hgb 27.5 pg (27.0-32.0); Mean Corpuscular Volume 84.8 fL (81-99); Mean Platelet Vol. 10.5 fl (6.2-12.0); Monocyte# 0.72 X10^3/uL; Monocyte% 7.3 % (0-10); NRBC Flagged by Analyzer 0 % (0-5); Neutrophil # 7.93 X10^3/uL (2.7-7.7); Neutrophil % 80.1 % (47-70); Platelet Count 236 K/mm3 (150-450); RBC Distribution Width CV 14.4 % (11.6-14.6); RBC Distribution Width SD 43.8 fl (35.1-43.9); Red Blood Count 6.11 M/mm3 (4.2-5.4); White Blood Count 9.9 K/mm3 (4.4-11.0)
[2023-11-03 14:09] LABS: Bedside Glucose 133 mg/dL (74-106)
[2023-11-03 14:15] LABS: Partial Thromboplast Time 25.1 Seconds (24.1-36.2)
[2023-11-03 14:31] LABS: Anion Gap 6 (5-15); BUN 39 mg/dL (7-18); BUN/Creat Ratio 23.9 RATIO (10-20); Calcium,Total 9.3 mg/dL (8.5-10.1); Chloride 100 mmol/L (98-107); Creatinine, Serum 1.63 mg/dL (0.55-1.02); EST Glomerular Filtration Rate 33 mL/min (>60); Est Glom Filt Rate - Afr Amer 39 mL/min (>60); Estimated Creatinine Clearance 31.75 ml/min; Glucose 143 mg/dL (74-106); Potassium 4.5 mmol/L (3.5-5.1); Sodium Level 136 mmol/L (136-145); Troponin-I HS 22 pg/mL (3.0-54.0)
[2023-11-03] MEDS: Cefazolin 1 GM/50 ML BAG IV (14:38)
--- NOTE | 2023-11-03 14:43 | RAD_ITS ---
STUDY: X-RAY CHEST REASON FOR EXAM: Female, 78 years old. Neuro deficit, acute, stroke suspected TECHNIQUE: Single AP portable view of the chest. COMPARISON: Comparison is made with prior study July 05, 2022. FINDINGS: EKG electrodes are seen. Hyperinflation. Mild scarring at the right lung base. There is no demonstrated pleural abnormality. There is mild cardiac enlargement. Normal mediastinum and bigg. Normal visualized pulmonary arteries. There is atherosclerotic calcification of the aortic arch with tortuosity. Normal visualized thoracic spine. Normal visualized ribs, clavicles, and shoulders. There is no demonstrated abnormality of the visualized soft tissue structures of the upper abdomen. RAD/Chest 1 View IMPRESSION: Hyperinflation. Mild right basilar scarring. Electronically Signed: Osvaldo Calle MD at 15:03 EDT ,
--- NOTE | 2023-11-03 14:45 | ED.RN ---
[facility] CALLED @ 0308, ETA 15-20 MIN.
--- NOTE | 2023-11-03 15:00 | ED.RN ---
Report called to MARIXA Ambrosio at [facility]
--- NOTE | 2023-11-03 15:29 | CHAPLAIN ---
Type of Pastoral Visit ___ Initial Visit ___ Follow-up Visit ___ On-call Visit ___ General Patient Visit ___ Spiritual Assessment ___ Family Conference ___ Bereavement _x__ Rapid Response ___ Code Blue ___ Other (describe below) Pastoral Care Referral From ___ Patient ___ Family ___ Nurse ___ Physician ___ Wire Winder ___ Hospital Medical Assistant _x__ Other (describe below) Sacrament/Intervention ___ Active listening ___ Anointing ___ Jainism ___ Bereavement ___ Communion ___ Brittany exploration ___ ___ Life review ___ Prayer ___ Reconciliation ___ Sacrament of Sick _x__ Supportive presence ___ Wedding _x__ Other (describe below) Pastoral Comments responded to stroke alert in the ED; patient was being taken to CT for scan; daughter and son-in-law were in the waiting room; introduced self, role, and offer of taking family to the patient's room where they could wait for her return; offer of presence, support, and water were given; family is [place] and the female did not engage in a conversation; the male stated that they were fine and had no further needs; later saw this son-in-law and offered support as they were leaving for a transfer to another hospital
== END 2023-11-03 15:00 | disposition short-term general hospital (02) ==
PROVIDERS: Emergency Provider Emergency Medicine; PCP Family Medicine; Visit Provider Emergency Medicine
DX: S06.360A Traumatic hemorrhage of cerebrum, unspecified, without loss of consciousness, initial encounter (principal); S01.01XA Laceration without foreign body of scalp, initial encounter; R20.2 Paresthesia of skin; I25.2 Old myocardial infarction; I25.10 Atherosclerotic heart disease of native coronary artery without angina pectoris; Z79.82 Long term (current) use of aspirin; Z79.01 Long term (current) use of anticoagulants; Z79.899 Other long term (current) drug therapy; Z95.5 Presence of coronary angioplasty implant and graft; X58.XXXA Exposure to other specified factors, initial encounter
CPT/HCPCS: 70450; 71045; 80048; 82962; 84484; 85025; 85610; 85730; 90715; 93005; 96365; 99285; J7050; A4216

== ENCOUNTER 2024-08-23 15:15 | Emergency (ER) | payer OTHER, SELFPAY ==
[2024-08-23] VITALS (9 sets, daily range): BP systolic 138–215; BP diastolic 60–105; PULSE 59–89; RESP 13–18; TEMP 36.6–36.8; O2SAT 98–99; BMI 27.5
--- NOTE | 2024-08-23 15:25 | EKG12_ITS ---
Test Reason : STROKE ALERT Blood Pressure : */* mmHG Vent. Rate : 64 BPM Atrial Rate : 64 BPM P-R Int : 140 ms QRS Dur : 82 ms QT Int : 432 ms P-R-T Axes : 73 -27 114 degrees QTcB Int : 445 ms Normal sinus rhythm Biatrial enlargement Anterior infarct , age undetermined T wave abnormality, consider lateral ischemia Abnormal ECG Confirmed by NAOMIE VARELA, ALEXANDER ([id number]), clinical editor BRADY MAHAN ([id number]) on 08/26/2024 8:15:06 AM Referred By: Confirmed By: ALEXANDER AKBAR MD
--- NOTE | 2024-08-23 15:25 | CT_ITS ---
EXAM: STROKE BRAIN/HEAD WITHOUT CONT CLINICAL HISTORY: Left-sided weakness. Right facial droop. COMPARISON: Comparison is made with prior study dated November 03, 2023. TECHNIQUE: Multiple axial tomographic images were obtained without intravenous contrast administration. Coronal and sagittal reconstruction was obtained as well. FINDINGS: Diffuse cerebral atrophy. Once again, there is evidence of encephalomalacia involving the right posterior parietal occipital lobes. Stable tiny lacunar infarct in the right thalamus. Mild degree of cerebellar atrophy. 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 No acute abnormality is seen . The referring physician was notified of the results. Reading Location: [id number]
--- NOTE | 2024-08-23 15:26 | CT_ITS ---
PROCEDURE: STROKE CTA HEAD AND NECK W/CON REASON FOR EXAM: Stroke TECHNIQUE: CTA imaging of the head and neck from the aortic arch to the skull vertex with intravenous contrast. 3D reconstructions. CONTRAST: COMPARISON: None. # of known CTs in the past 12 months: 0 # of known Cardiac Nuclear Medicine Studies in the past 12 months: 0 FINDINGS: Aortic Arch: Normal size and branching pattern. Mild atherosclerotic plaque. Brachiocephalic and Subclavians: Mild atherosclerotic plaque without significant stenosis. RIGHT Carotid: Right CCA: Mild calcified and soft plaque. Right ICA: Mild calcified and soft plaque. Maximum stenosis (NASCET): 0 % Right ECA: Unremarkable. LEFT Carotid: Left CCA: Mild calcified and soft plaque. Left ICA: Mild calcified and soft plaque. Maximum stenosis (NASCET): 0 % Left ECA: Unremarkable. Vertebrals: Codominant. Arise from the subclavians. Both vertebrals form the basilar. RIGHT Vertebral: Unremarkable. LEFT Vertebral: Dominant. No intracranial aneurysms or large vascular malformations are identified. Anterior cerebral arteries: Unremarkable. Middle cerebral arteries: Unremarkable. Basilar artery: Unremarkable. Posterior cerebral arteries: Unremarkable. Other major branches of the posterior circulation: Unremarkable. Major venous structures: Unremarkable. Other findings: No lymphadenopathy. Lung apices are clear. Bones are unremarkable. CT/STROKE CTA Head AND Neck W/Con IMPRESSION: Mild atherosclerotic disease in the arteries of the head and neck with no hemod ynamically significant stenosis. No large vessel occlusion. One or more dose reduction techniques were used (e.g., Automated exposure contr ol, adjustment of the mA and/or kV according to patient size, use of iterative reconstruction technique). Reading Location: [id number]
--- NOTE | 2024-08-23 15:33 | EX.ED.DYSGE1 ---
HPI History of Present Illness Chief Complaint: Neuro S/Sx Narrative Narrative: Chief complaint and HPI: General Malaise. 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 On chart review patient's past medical history of CAD, HLD, HTN, CHF. Per EMS report, patient originally complained of headache and weakness. Per EMS her blood pressure was 240/120. Patient became somnolent and minimally responsive prior to arrival. On arrival, patient is somnolent but alert and oriented x 3. She had minor right facial droop and left upper extremity weakness. Although these are conflicting exams patient was made a stroke alert as we were told that her last known normal was approximately 1400. Her NIH was a 5 she was taken immediately to the CT scanner. After arriving from the CT scanner, patient is much more awake. NIH was reperformed and 0. Patient states her last known normal was 3 days ago. States her head has been feeling funny but cannot describe this to me. Family in the room states that she has been complaining of general malaise for the past 3 days. Patient denies any fever, chills, headache, URI symptoms, cough, shortness of breath, chest pain, abdominal pain, nausea, vomiting, dysuria, diarrhea. States she has been eating and drinking well. States she has been taking all of her medications. Stroke alert was canceled given that her last known normal was 3 hours ago and patient not a tPA candidate. Review of systems: See HPI Medications: As listed on the chart Allergies: As listed on the chart PFSH: Per chart Vital signs: As listed on the chart. Reviewed. Physical exam: This is after initial exam: Gen: A&O x3, NAD Head: Normocephalic, atraumatic Eyes: No sclera icterus, conjunctiva clear, PERRL, EOMI ENT: Dry mucous membranes, No facial asymmetry Neck: Trachea midline, No JVD CV: RRR, no murmurs, no peripheral edema Resp: Lungs CTA BL, no w/r/c GI: Abd soft, non-distended, non-tender, no r/r/g Musc: Full ROM, no deformity, strength +5/5 in all extremities, no pronator drift, no ataxia, DTR +2/5 Skin: Warm, dry, intact Neuro: Alert, oriented, grossly intact, sensation intact, no focal deficits, NIH 0 Psych: Cooperative, appropriate mood and affect [facility] Medical History Abnormal echocardiogram Abnormal stress test Atherosclerotic heart disease of [place] coronary artery without angina pectoris CAD (coronary artery disease) Chest pain CHF (congestive heart failure) Coronary artery disease History of ST elevation myocardial infarction (STEMI) HLD (hyperlipidemia) Hypertension Mixed hyperlipidemia Myocardial infarction Presence of stent in coronary artery (~08/17/17) Home Medications ?Medication ?Instructions ?Recorded ?Last Taken ?Type carvedilol 6.25 mg tablet 6.25 mg PO BID 30 days #60 tabs 08/08/22 Unknown Rx spironolactone 25 mg tablet 25 mg PO DAILY #30 tabs 08/08/22 Unknown Rx aspirin 81 mg chewable tablet (St 81 mg PO DAILY 11/01/22 Unknown History Robin Aspirin) clonazepam 0.5 mg tablet 0.5 mg PO BID PRN anxiety 11/01/22 Unknown History clonidine HCl 0.1 mg tablet 0.1 mg PO ONCE PRN hypertensive 05/04/23 Unknown History emergency lisinopril 20 mg tablet 20 mg PO BID PRN hypertension 05/04/23 Unknown History furosemide 40 mg tablet (Lasix) 20 mg PO PRN 09/23/23 Unknown History acetaminophen 325 mg tablet 325 mg PO Q6H PRN fever 11/03/23 Unknown History (Tylenol) Allergy/AdvReac Type Severity Reaction Status Date / Time No Known Allergies Allergy Verified 05/04/23 14:41 Family History Mother CVA (cerebral vascular accident) Heart disease Myocardial infarction Father CVA (cerebral vascular accident) Heart disease Myocardial infarction Surgical History History of Hx of coronary angioplasty Presence of coronary angioplasty implant and graft (~08/17/17) S/P PTCA (percutaneous transluminal coronary angioplasty) Social History household members: family Smoking Status: Never smoker alcohol intake: never substance use type: does not use EXAM Physical Exam Const Vital Signs: 08/23/24 15:17 08/23/24 15:28 08/23/24 15:28 Temperature 97.9 F Temperature Source Oral Pulse Rate 75 87 Respiratory Rate 18 18 Blood Pressure 215/105 H 215/105 H Blood Pressure Mean 141 141 Pulse Ox 98 98 98 Oxygen Delivery Method Room Air Room Air Room Air 08/23/24 15:46 08/23/24 16:16 08/23/24 16:30 Temperature Temperature Source Pulse Rate 89 63 60 Respiratory Rate 18 17 14 Blood Pressure 176/89 H 153/66 H 148/71 H Blood Pressure Mean 118 91 93 Pulse Ox 99 98 Oxygen Delivery Method 08/23/24 17:00 08/23/24 17:30 08/23/24 18:27 Temperature 98.2 F Temperature Source Pulse Rate 59 L 59 L 78 Respiratory Rate 18 16 16 Blood Pressure 148/60 H 138/63 H 158/74 H Blood Pressure Mean 85 86 102 Pulse Ox 98 99 Oxygen Delivery Method 08/23/24 18:30 Temperature Temperature Source Pulse Rate 65 Respiratory Rate 13 Blood Pressure 144/71 H Blood Pressure Mean 95 Pulse Ox 99 Oxygen Delivery Method Room Air MDM MDM MDM Narrative Medical decision making narrative: 79-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 Patient was originally made a stroke alert however this was canceled after CT scan given that patient states her symptoms had been ongoing for 3 days and not a tPA candidate. On presentation patient was somnolent with a blood pressure of 215/105. Prior to taking to the CT scanner she was ordered labetalol however this was never given. On return from the CT scanner blood pressure 176/89. Patient is alert. All neurologic deficits have resolved. Glucose normal. Patient has no complaints other than general malaise at this time. Differential diagnosis includes but is not limited to hypertension urgency, hypertensive emergency, TERRA, influenza, pneumonia, UTI, electrolyte abnormality, TIA. NS bolus ordered with laboratory workup and imaging. CT head shows old right posterior parietal occipital infarction. Otherwise no acute abnormality. I was informed of this by radiology. EKG and chest x-ray reviewed see below. CBC without leukocytosis. Patient has hemoconcentration with a hemoglobin of 16.2. This can be seen with dehydration. NS bolus running. Platelet count unremarkable. INR unremarkable. BMP with baseline CKD. Lactic acid unremarkable. Patient requesting to leave the emergency department and discharged home. After discussion she is willing to stay until workup is completed. UA negative for UTI. Troponin flat and at baseline for her previous results. With laboratory workup and imaging. CTA head and neck without LVO. No significant stenosis. At this point in time no clear etiology for patient's symptoms. Differential includes TIA versus hypertension urgency/emergency given that symptoms resolved once blood pressure improved. Patient and family members were updated of all the results and my recommendation for admission for observation as well as further TIA workup. Patient declined and states that she would like to discharge home and follow-up with her primary care physician. Patient is alert and oriented and can make her own decisions. She was made aware that if she did have a TIA this can lead to a CVA. She confirmed understanding but states her symptoms have resolved and she would like to discharge home. I also explained to her that since I am unclear the etiology of her symptoms this could result in unforeseen circumstances. She confirmed understanding. She states however she would like to discharge home. She will return back to the ED if symptoms change or worsen. Family is in agreement with the plan as they state they would like to respect the patient's wishes. Patient informed that she needs to follow-up with her PCP. Strict return precautions. She confirmed understanding. Patient stable to discharge home. EKG: Interpreted by me/EM physician: EKG shows normal sinus rhythm. Patient has nonspecific ST changes with artifact. Heart rate 64 Diagnostic: Interpreted by me/EM physician: Chest x-ray without pneumonia, effusion, pneumothorax. Patient has cardiomegaly. This is similar to previous chest x-ray in 2021 Impression: 1. Neurological deficits, resolved. TIA versus hypertension urgency/emergency 2. Hypertension, resolved 3. Headache, resolved 4. General Malaise 5. CKD Lab Data Labs: Laboratory Results - last 24 hr 08/23/24 08/23/24 08/23/24 15:13 15:33 15:41 WBC 8.7 RBC 5.76 H Hgb 16.2 H Hct 49.5 H MCV 85.9 MCH 28.1 MCHC 32.7 RDW Std Deviation 43.2 RDW Coeff of Beena 13.7 Plt Count 201 MPV 10.7 Immature Gran % (Auto) 0.300 Neut % (Auto) 66.4 Lymph % (Auto) 21.7 [place] % (Auto) 10.0 Eos % (Auto) 1.0 Baso % (Auto) 0.6 Absolute Neuts (auto) 5.8 Absolute Lymphs (auto) 1.90 Nucleated RBC % 0 PT 12.4 INR 0.9 APTT 23.7 L Sodium 137 Potassium 4.1 Chloride 100 Carbon Dioxide 30.0 Anion Gap 7 BUN 29 H Creatinine 1.63 H Estim Creat Clear Calc 34.63 Est GFR (MDRD) Af Amer 39 L Est GFR (MDRD) Non-Af 33 L BUN/Creatinine Ratio 17.8 Glucose 107 H Lactic Acid 1.1 Calcium 9.3 Troponin I High Sens 28 Urine Color Urine Clarity Urine pH Ur Specific [place] Urine Protein Urine Glucose (UA) Urine Ketones Urine Occult Blood Urine Nitrite Urine Bilirubin Urine Urobilinogen Ur Leukocyte Esterase Urine RBC Urine WBC Ur Squamous Epith Cells Urine Bacteria Urine Mucus POC Glucose 89 08/23/24 08/23/24 15:50 16:50 WBC RBC Hgb Hct MCV MCH MCHC RDW Std Deviation RDW Coeff of Beena Plt Count MPV Immature Gran % (Auto) Neut % (Auto) Lymph % (Auto) [place] % (Auto) Eos % (Auto) Baso % (Auto) Absolute Neuts (auto) Absolute Lymphs (auto) Nucleated RBC % PT INR APTT Sodium Potassium Chloride Carbon Dioxide Anion Gap BUN Creatinine Estim Creat Clear Calc Est GFR (MDRD) Af Amer Est GFR (MDRD) Non-Af BUN/Creatinine Ratio Glucose Lactic Acid Calcium Troponin I High Sens 32 Urine Color Straw Urine Clarity Clear Urine pH 7.0 Ur Specific [place] 1.005 Urine Protein Negative Urine Glucose (UA) Normal Urine Ketones Negative Urine Occult Blood Negative Urine Nitrite Negative Urine Bilirubin Negative Urine Urobilinogen Normal Ur Leukocyte Esterase Negative Urine RBC 0 SEEN Urine WBC 0 SEEN Ur Squamous Epith Cells 0 SEEN Urine Bacteria 0 SEEN Urine Mucus 0 SEEN POC Glucose Radiography Diagnostic Testing: Clinical Impression(s) from Imaging Studies Brain CT 08/23/24 15:25 IMPRESSION: 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 No acute abnormality is seen. The referring physician was notified of the results. Reading Location: [id number] Head/Neck CTA 08/23/24 15:26 IMPRESSION: Mild atherosclerotic disease in the arteries of the head and neck with no hemodynamically significant stenosis. No large vessel occlusion. One or more dose reduction techniques were used (e.g., Automated exposure control, adjustment of the mA and/or kV according to patient size, use of iterative reconstruction technique). [facility] Chest [facility]-Ray 08/23/24 16:00 IMPRESSION: 1. No acute cardiopulmonary process. 2. Mild bibasilar atelectasis or scarring. 3. Cardiomegaly. Reading Location: [facility] Discharge Plan Triage Chief Complaint: Neuro S/Sx ED Provider: Steve Aleman Dx/Rx/DC Orders Instructions: ED Headache Unspecified, ED Hypertension, Established Prescriptions: No Action carvedilol 6.25 mg tablet 6.25 mg PO BID 30 Days Qty: 60 12RF spironolactone 25 mg tablet 25 mg PO DAILY Qty: 30 10RF aspirin [St Robin Aspirin] 81 mg tablet,chewable 81 mg PO DAILY clonazepam 0.5 mg tablet 0.5 mg PO BID PRN (Reason: anxiety) Patient Comments: takes it mostly for sleeping lisinopril 20 mg tablet 20 mg PO BID PRN (Reason: hypertension) clonidine HCl 0.1 mg tablet 0.1 mg PO ONCE PRN (Reason: hypertensive emergency) acetaminophen [Tylenol] 325 mg tablet 325 mg PO Q6H PRN (Reason: fever) furosemide [Lasix] 40 mg tablet 20 mg PO PRN Primary Care Provider: Thomas Pastor Referrals: Thomas Pastor DO [Primary Care Provider] - 3-5 Days Activity Restrictions/Additional Instructions: Return back to the emergency department if symptoms change or worsen. Return back if symptoms recur. Follow-up with your primary care physician Print Language: Persian Disposition Disposition: Home, Self Care Discharge Date/Time: 08/23/24 18:58
--- NOTE | 2024-08-23 15:40 | ED.RN ---
STROKE ALERT CANCELLED PER DR. MOSQUERA
[2024-08-23 15:42] LABS: Absolute Neutrophil Count 5.8 X10^3/uL (2.0-7.7); Basophil# 0.05 X10^3/uL; Basophil% 0.6 % (0-1); Eosinophil# 0.09 X10^3/uL; Hematocrit 49.5 % (37-47); Hemoglobin 16.2 g/dL (12.0-15.0); Lymphocyte % 21.7 % (19-41); Mean Corp Hgb Conc 32.7 g/dL (32-36); Mean Corpuscular Hgb 28.1 pg (27.0-32.0); Mean Corpuscular Volume 85.9 fL (81-99); Mean Platelet Vol. 10.7 fl (6.2-12.0); Monocyte# 0.87 X10^3/uL; NRBC Flagged by Analyzer 0 % (0-5); Neutrophil % 66.4 % (47-70); Platelet Count 201 K/mm3 (150-450); RBC Distribution Width CV 13.7 % (11.6-14.6); RBC Distribution Width SD 43.2 fl (35.1-43.9); Red Blood Count 5.76 M/mm3 (4.2-5.4); White Blood Count 8.7 K/mm3 (4.4-11.0)
--- NOTE | 2024-08-23 15:49 | CHAPLAIN ---
Type of Pastoral Visit ___ Initial Visit ___ Follow-up Visit ___ On-call Visit ___ General Patient Visit ___ Spiritual Assessment ___ Family Conference ___ Bereavement _x__ Rapid Response ___ Code Blue ___ Other (describe below) Pastoral Care Referral From ___ Patient ___ Family ___ Nurse ___ Physician ___ Pmp ___ [employer]er _x__ Other (describe below) Sacrament/Intervention ___ Active listening ___ Anointing ___ Hinduism ___ Bereavement ___ Communion ___ Brittany exploration ___ ___ Life review ___ Prayer ___ Reconciliation ___ Sacrament of Sick _x__ Supportive presence ___ Wedding ___ Other (describe below) Pastoral Comments responded to stroke alert in ED; patient was in CT but son-in-law was in the hallway; offered support and beverages; denies needs of anything; a few minutes the stroke alert was cancelled
[2024-08-23 15:55] LABS: Partial Thromboplast Time 23.7 Seconds (24.1-36.2)
--- NOTE | 2024-08-23 15:56 | ED.RN ---
NIH CANCELLED PER DR MOSQUERA ORDER
[2024-08-23 15:59] LABS: Bedside Glucose 89 mg/dL (74-106)
[2024-08-23 15:59] LABS: Bacteria 0 SEEN /hpf (None Seen); Mucous, Urine 0 SEEN /hpf (<or=2+); Squamous Epithelial Cells - UA 0 SEEN /hpf (5-10); White Blood Cells 0 SEEN /hpf (0-5)
[2024-08-23 16:00] LABS: International Normalized Ratio 0.9; Prothrombin Time (Protime)PT. 12.4 SECONDS (11.7-14.9)
--- NOTE | 2024-08-23 16:00 | RAD_ITS ---
PROCEDURE: CHEST 1 VIEW REASON FOR EXAM: Neuro deficit, acute stroke suspected TECHNIQUE: Frontal view of the chest. COMPARISON: 11/03/2023 FINDINGS: The lung [place] appear hyperinflated. Mild bibasilar atelectasis or scarring is present. No pleural effusion or pneumothorax. The cardiac silhouette is enlarged. There are atherosclerotic calcifications at the aortic arch. No acute osseous or soft tissue abnormality. RAD/Chest 1 View IMPRESSION: 1. No acute cardiopulmonary process. 2. Mild bibasilar atelectasis or scarring. 3. Cardiomegaly. Reading [facility]
[2024-08-23 16:11] LABS: Color, Urine Straw (Yellow); Glucose, Dipstick Normal (Normal); Ketone-Dipstick Negative (Negative); Leukocyte Esterase-Dipstick Negative /ul (Negative); Nitrite-Dipstick Negative (Negative); Occult Blood-Urine Negative /ul (Negative); Protein-Dipstick Negative (Negative); Specific Gravity, Urine 1.005 (1.002-1.030); Urine Bilirubin Dipstick Negative (Negative); Urine Clarity Clear (Clear); Urine Urobilinogen Normal (Normal)
[2024-08-23 16:20] LABS: Lactic Acid 1.1 mmol/L (0.4-1.9)
[2024-08-23] MEDS: 0.9% Normal Saline (1000mL) 1,000 ML 999 ML IV (16:28)
[2024-08-23 16:30] LABS: Anion Gap 7 (5-15); BUN 29 mg/dL (7-18); BUN/Creat Ratio 17.8 RATIO (10-20); Calcium,Total 9.3 mg/dL (8.5-10.1); Chloride 100 mmol/L (98-107); Creatinine, Serum 1.63 mg/dL (0.55-1.02); EST Glomerular Filtration Rate 33 mL/min (>60); Est Glom Filt Rate - Afr Amer 39 mL/min (>60); Estimated Creatinine Clearance 34.63 ml/min; Glucose 107 mg/dL (74-106); Potassium 4.1 mmol/L (3.5-5.1); Sodium Level 137 mmol/L (136-145); Troponin-I HS 28 pg/mL (3.0-54.0)
[2024-08-23 17:06] LABS: Red Blood Cells-Urine 0 SEEN /hpf (0-5)
[2024-08-23 17:19] LABS: Troponin-I HS 32 pg/mL (3.0-54.0)
== END 2024-08-23 18:58 | disposition home or self-care (01) ==
PROVIDERS: Emergency Provider Surgery; PCP Family Medicine; Visit Provider Surgery
DX: R29.818 Other symptoms and signs involving the nervous system (principal); I13.0 Hypertensive heart and chronic kidney disease with heart failure and stage 1 through stage 4 chronic kidney disease, or unspecified chronic kidney disease; I50.9 Heart failure, unspecified; R40.0 Somnolence; E86.0 Dehydration; E78.2 Mixed hyperlipidemia; I70.90 Unspecified atherosclerosis; R51.9 Headache, unspecified; R53.81 Other malaise; I25.2 Old myocardial infarction; Z79.82 Long term (current) use of aspirin; Z79.899 Other long term (current) drug therapy; Z95.5 Presence of coronary angioplasty implant and graft; N18.9 Chronic kidney disease, unspecified
CPT/HCPCS: 70450; 70496; 70498; 71045; 80048; 81001; 82962; 83605; 84484; 85025; 85610; 85730; 87631; 93005; 96360; 99285; Q9967; A4216